=== PATIENT | female | born 1970 | race Two or more races ===

== ENCOUNTER 2016-03-24 17:59 | Inpatient (IN) | payer SELFPAY ==
[~2016-03-24] VITALS: Ht 157.5 cm; Wt 83.1 kg
--- NOTE | 2016-03-24 19:27 | PHYS DOC ---
Past Medical History Past Medical History: Diabetes-Type II, Hypertension Past Surgical History: Alcohol Use: Occasionally Drug Use: None Adult General Chief Complaint Chief Complaint: WEAKNESS/GENERALIZED HPI HPI Patient is a 45 year old female who presents with abdominal and flank pain. Patient reports last week she had right upper quadrant/epigastric pain that was accompanied by diarrhea. She saw her PCP, and was told it was likely her pancreas or gallbladder; she was to have an ultrasound done at some point this week. She presents to the emergency department now with right upper quadrant and bilateral flank pain. She also reports chills/fever and generalized weakness. She has not taken anything for symptoms. No clear inciting or mitigating factors. No other acute complaints. Review of Systems Review of Systems Constitutional: Generalized weakness. Fever/chills Eyes: Denies change in visual acuity or eye pain HENT: Denies nasal congestion or sore throat Respiratory: Denies cough or shortness of breath Cardiovascular: Denies chest pain GI: RUQ abdominal pain, nausea. Denies vomiting, bloody stools or diarrhea : Denies dysuria or hematuria Musculoskeletal: B/l flank pain Integument: Denies rash or skin lesions Neurologic: Denies headache, focal weakness or sensory changes Current Medications Current Medications Current Medications Medications (Trade) Dose Ordered Sig/Jorge Start Time Stop Time Status Last Admin Dose Admin Acetaminophen (Tylenol) 1,000 mg 1X ONCE 03/24/16 19:30 03/24/16 19:31 DC 03/24/16 19:36 1,000 MG Hydromorphone HCl (Dilaudid) 0.5 mg 1X ONCE 03/24/16 19:30 03/24/16 19:31 DC 03/24/16 19:36 0.5 MG Ondansetron HCl (Zofran) 4 mg 1X ONCE 03/24/16 19:30 03/24/16 19:31 DC 03/24/16 19:36 4 MG Sodium Chloride (Iv Sodium Chloride 0.9% 1000ml Bag) 1,000 ml @ 1,000 mls/hr 1X ONCE 03/24/16 19:30 03/24/16 20:29 DC 03/24/16 19:39 1,000 MLS/HR Allergies Allergies Allergies Coded Allergies Type Severity Reaction Last Updated Verified No Known Drug Allergies 03/24/16 No Physical Exam Physical Exam Constitutional: Well developed, well nourished, no acute distress, non-toxic appearance HENT: Normocephalic, atraumatic, bilateral external ears normal Eyes: EOMI, conjunctiva normal, no discharge Neck: Normal range of motion, no stridor Cardiovascular: Tachycardic, regular rhythm, no murmur Lungs & Thorax: Bilateral breath sounds clear to auscultation Abdomen: Bowel sounds normal, soft, non-distended, RUQ TTP Skin: Hot to touch, dry, no erythema, no rash Back: B/l CVA tenderness Extremities: No obvious deformity, no edema Neurologic: Alert and oriented X 3, no gross deficits noted Current Patient Data Vital Signs Vital Signs Date Time Temp Pulse Resp B/P Pulse Ox O2 Delivery O2 Flow Rate FiO2 03/24/16 19:05 100.1 123 18 122/65 95 Room Air 100.1 Lab Values Laboratory Tests Test 03/24/16 19:20 03/24/16 20:00 White Blood Count 9.4x10^3/uL (4.0-11.0) Red Blood Count 3.46x10^6/uL (3.50-5.40) L Hemoglobin 10.0g/dL (12.0-15.5) L Hematocrit 30.6% (36.0-47.0) L Mean Corpuscular Volume 89fL (79-100) Mean Corpuscular Hemoglobin 29pg (25-35) Mean Corpuscular Hemoglobin Concent 33g/dL (31-37) Red Cell Distribution Width 13.5% (11.5-14.5) Platelet Count 312x10^3/uL (140-400) Neutrophils (%) (Auto) 87% (31-73) H Lymphocytes (%) (Auto) 5% (24-48) L Monocytes (%) (Auto) 3% (0-9) Eosinophils (%) (Auto) 4% (0-3) H Basophils (%) (Auto) 1% (0-3) Neutrophils # (Auto) 8.2x10^3uL (1.8-7.7) H Lymphocytes # (Auto) 0.5x10^3/uL (1.0-4.8) L Monocytes # (Auto) 0.3x10^3/uL (0.0-1.1) Eosinophils # (Auto) 0.4x10^3/uL (0.0-0.7) Basophils # (Auto) 0.0x10^3/uL (0.0-0.2) Segmented Neutrophils % 60% (35-66) Band Neutrophils % 27% (0-9) H Lymphocytes % 8% (24-48) L Monocytes % 2% (0-10) Eosinophils % 3% (0-5) Toxic Granulation Slight Platelet Estimate Adequate (ADEQUATE) Sodium Level 133mmol/L (136-145) L Potassium Level 3.8mmol/L (3.5-5.1) Chloride Level 99mmol/L (98-107) Carbon Dioxide Level 26mmol/L (21-32) Anion Gap 8 (6-14) Blood Urea Nitrogen 18mg/dL (7-20) Creatinine 1.3mg/dL (0.6-1.0) H Estimated GFR (Cockcroft-Gault) 44.3 BUN/Creatinine Ratio 14 (6-20) Glucose Level 315mg/dL (70-99) H Lactic Acid Level 0.8mmol/L (0.4-2.0) Calcium Level 8.7mg/dL (8.5-10.1) Total Bilirubin 0.4mg/dL (0.2-1.0) Aspartate Amino Transferase (AST) 15U/L (15-37) Alanine Aminotransferase (ALT) 18U/L (14-59) Alkaline Phosphatase 97U/L (46-116) Total Protein 7.2g/dL (6.4-8.2) Albumin 2.6g/dL (3.4-5.0) L Albumin/Globulin Ratio 0.6 (1.0-1.7) L Lipase 247U/L (73-393) Urine Collection Type Unknown Urine Color Yellow Urine Clarity Cloudy Urine pH 5.5 Urine Specific [place] 1.020 Urine Protein 100mg/dL (NEG-TRACE) Urine Glucose (UA) >=1000mg/dL (NEG) Urine Ketones (Stick) Negativemg/dL (NEG) Urine Blood Moderate (NEG) Urine Nitrite Negative (NEG) Urine Bilirubin Negative (NEG) Urine Urobilinogen Dipstick 0.2mg/dL (0.2 mg/dL) Urine Leukocyte Esterase Small (NEG) Urine RBC 3-5/HPF (0-2) Urine WBC 11-20/HPF (0-4) Urine Squamous Epithelial Cells Few/LPF Urine Bacteria Many/HPF (0-FEW) Urine Test Negative (NEG) Laboratory Tests 03/24/16 19:20 Laboratory Tests 03/24/16 19:20 EKG EKG [] Radiology/Procedures Radiology/Procedures RUQ US: IMPRESSION Hepatomegaly with a hyperechoic 2.6 x 1.8 x 2.3 centimeter lesion in the superior pole of the right lobe of the liver possibly a hemangioma. This may be evaluated by multi phase contrast enhanced CT or MRI. Atrophic right kidney with a probable the right inferior pole cyst. Gallbladder is normal. Suboptimal evaluation due of the pancreas due to overlying bowel gas. Course & Med Decision Making Course & Med Decision Making Pertinent Labs and Imaging studies reviewed. (See chart for details) Patient is 45-year-old female who presents with right upper quadrant pain and bilateral flank pain. Suspect gallbladder as etiology. Will obtain labs, UA, right upper quadrant ultrasound. IV fluids, a medication, nausea medication ordered for relief of symptoms. Labs notable for anemia, slight hyponatremia. UA indicative of UTI. Dose of Rocephin ordered. Ultrasound results as above. Discussed results with patient and family. Given abnormal ultrasound results, I believe patient would benefit from additional imaging. However, her GFR is not high enough to give IV contrast for CT scan. As such, we will admit to the hospitalist service overnight and can obtain additional imaging in the morning. Spoke with Dr. Peace, who has agreed to accept patient for further evaluation and treatment. Dragon Disclaimer Dragon Disclaimer This electronic medical record was generated, in whole or in part, using a voice recognition dictation system. Departure Departure Impression: Primary Impression: Abdominal pain Additional Impressions: Liver lesion Atrophic kidney Disposition: ADMITTED INPATIENT Admitting Physician: Susan Peace Condition: STABLE Referrals: NO PCP (PCP) Problem Qualifiers LIZZIE THOMASON MD Mar 24, 2016 19:26
[2016-03-24] MEDS ORDERED: ACETAMINOPHEN 500 MG TABLET PO ONE (19:30)
[2016-03-24] MEDS ORDERED: HYDROMORPHONE 2 MG/ML VIAL. IV ONE (19:30)
[2016-03-24] MEDS ORDERED: ONDANSETRON PF 4 MG/2 ML VIAL. IV ONE (19:30)
[2016-03-24] MEDS ORDERED: IV NORMAL SALINE 1000ML BAG 1,000 ML IV ONE (19:30)
[2016-03-24 19:41] LABS: BASO % 1 % (0-3); EOS % 4 % (0-3); HEMATOCRIT 30.6 % (36.0-47.0); LYMPH # 0.5 x10^3/uL (1.0-4.8); LYMPH % 5 % (24-48); MEAN CORPUSCULAR HEMOGLOBIN 29 pg (25-35); MEAN CORPUSCULAR HGB CONC 33 g/dL (31-37); MEAN CORPUSCULAR VOLUME 89 fL (79-100); MONO % 3 % (0-9); NEUT % 87 % (31-73); PLATELET COUNT 312 x10^3/uL (140-400); RED BLOOD COUNT 3.46 x10^6/uL (3.50-5.40); RED CELL DISTRIBUTION WIDTH 13.5 % (11.5-14.5); WHITE BLOOD COUNT 9.4 x10^3/uL (4.0-11.0)
[2016-03-24 19:57] LABS: CALCIUM 8.7 mg/dL (8.5-10.1); CREATININE 1.3 mg/dL (0.6-1.0); GFR 44.3; POTASSIUM 3.8 mmol/L (3.5-5.1)
[2016-03-24 20:08] LABS: ALBUMIN 2.6 g/dL (3.4-5.0); ALBUMIN/GLOBULIN RATIO 0.6 (1.0-1.7); TOTAL BILIRUBIN 0.4 mg/dL (0.2-1.0); TOTAL PROTEIN 7.2 g/dL (6.4-8.2)
[2016-03-24 20:09] LABS: % EOS 3 % (0-5); PLT ESTIMATE ADEQUATE (ADEQUATE); TOXIC GRANULATION SLIGHT
[2016-03-24 20:15] LABS: BILIRUBIN,URINE NEGATIVE (NEG); GLUCOSE,URINE >=1000 mg/dL (NEG); NITRITE,URINE NEGATIVE (NEG); PH,URINE 5.5; UROBILINOGEN,URINE 0.2 mg/dL (0.2 mg/dL)
[2016-03-24 20:19] LABS: PROTEIN,URINE 100 mg/dL (NEG-TRACE)
[2016-03-24 20:20] LABS: BACTERIA,URINE MANY /HPF (0-FEW); NEG OBC UR NEG; POS OBC UR POS; SQUAMOUS EPITHELIAL CELL,UR FEW /LPF
--- NOTE | 2016-03-24 20:57 | RAD ---
PROCEDURE Limited right upper quadrant ultrasound. HISTORY Abdominal pain for 1 week, elevated lipase as per the patient. TECHNIQUE Real-time ren scale imaging of the right upper abdomen is performed and images are obtained. COMPARISON None available. FINDINGS The liver is enlarged and measures 20.3 centimeters in length. There is a 2.6 x 1.8 x 2.3 centimeter hyperechoic lesion in the superior right hepatic lobe. There is no intra or extrahepatic biliary ductal dilatation. Common bile duct measures 4.7 millimeter. The gallbladder appears normal. The right kidney IS SOMEWHAT ATROPHIC AND measures 7.9 x 3.4 x 3.6 centimeter . There is a 0.9 x 1.0 x 1.0 centimeter hypoechoic lesion in the inferior pole of the right kidney possibly a cyst. Pancreas is poorly evaluated due to overlying bowel gas. Limited evaluation of the IVC and aorta appear grossly normal. IMPRESSION Hepatomegaly with a hyperechoic 2.6 x 1.8 x 2.3 centimeter lesion in the superior pole of the right lobe of the liver possibly a hemangioma. This may be evaluated by multi phase contrast enhanced CT or MRI. Atrophic right kidney with a probable the right inferior pole cyst. Gallbladder is normal. Suboptimal evaluation due of the pancreas due to overlying bowel gas. Electronically signed by: Marce Austin MD (Mar 24, 2016 20:56:31)
[2016-03-24] MEDS ORDERED: ONDANSETRON PF 4 MG/2 ML VIAL. IV PRN (21:45)
[2016-03-24] MEDS ORDERED: CEFTRIAXONE 1GM IVPB FOR OMNI 50 ML IV ONE (21:45)
[2016-03-24 22:00] VITALS: BP 93/63
[2016-03-24] MEDS ORDERED: DEXTROSE 50% 25 GM / 50ML DISP.SYRIN. IV PRN (22:30)
[2016-03-24] MEDS ORDERED: CEFTRIAXONE SODIUM 1 GM in IV NORMAL SALINE 50ML 50 ML IV SCH (22:30)
[2016-03-24] MEDS ORDERED: INSULIN DETEMIR 300 UNITS/3 ML INSULN.PEN. SQ SCH (22:30)
--- NOTE | 2016-03-24 22:43 | PDOC1 ---
History and Physical Date of Admission Date of Admission DATE: 03/24/16 TIME: 22:37 Identification/Chief Complaint Chief Complaint abd pain Source Source: Chart review, Patient History of Present Illness History of Present Illness 45 yo female, DM2, poor control admit from ER for wornening mid abd pain. She did not complain of flank pain to me, she has prior kidney stones, and this feels different. Pain on palpations some fatigue and malaise and lowish fever, no sick contacts. no flu exposure Past Medical History Cardiovascular: No pertinent hx Hepatobiliary: No pertinent hx Renal/: Other (kidney stone) Endocrine: Diabetes Past Surgical History Past Surgical History: No pertinent history Family History Family History: No Significant Social History Smoke: No ALCOHOL: rare Drugs: None Current Problem List Problem List Problems Medical Problems: (1) Abdominal pain Status: Acute (2) Atrophic kidney Status: Acute (3) Flank pain Status: Acute (4) Liver lesion Status: Acute Problems: Current Medications Current Medications Current Medications Sodium Chloride (Iv Sodium Chloride 0.9% 1000ml Bag) 1,000 ml @ 1,000 mls/hr 1X ONCE IV Last administered on 03/24/16 19:39; Start 03/24/16 at 19:30; Stop 03/24/16 at 20:29; Status DC Ondansetron HCl (Zofran) 4 mg 1X ONCE IV Last administered on 03/24/16 19:36 ; Start 03/24/16 at 19:30; Stop 03/24/16 at 19:31; Status DC Hydromorphone HCl (Dilaudid) 0.5 mg 1X ONCE IV Last administered on 03/24/16 19:36; Start 03/24/16 at 19:30; Stop 03/24/16 at 19:31; Status DC Acetaminophen (Tylenol) 1,000 mg 1X ONCE PO Last administered on 03/24/16 19: 36; Start 03/24/16 at 19:30; Stop 03/24/16 at 19:31; Status DC Ondansetron HCl (Zofran) 4 mg PRN Q8HRS PRN IV NAUSEA/VOMITING; Start 03/24/16 at 21:45; Stop 03/25/16 at 21:44 Morphine Sulfate 4 mg 4 mg PRN Q2HR PRN IV PAIN; Start 03/24/16 at 21:45; Stop 03/25/16 at 21:44 Sodium Chloride (Iv Sodium Chloride 0.9% 1000ml Bag) 1,000 ml @ 100 mls/hr Q10H IV ; Start 03/24/16 at 21:45; Stop 03/25/16 at 21:44 Acetaminophen 650 mg 650 mg PRN Q4HRS PRN PO FEVER; Start 03/24/16 at 21:45; Stop 03/25/16 at 21:44 Ceftriaxone Sodium (Rocephin 1gm Ivpb For Omni) 50 ml @ 100 mls/hr 1X ONCE IV ; Start 03/24/16 at 21:45; Stop 03/24/16 at 22:14; Status DC Insulin Aspart (Novolog) 0-9 UNITS QIDACHS SQ ; Start 03/25/16 at 07:30; Status UNV Dextrose 12.5 gm 12.5 gm PRN Q15MIN PRN IV SEE COMMENTS; Start 03/24/16 at 22: 30; Status UNV Ceftriaxone Sodium/Sodium Chloride (Rocephin/Iv Sodium Chloride 0.9% 50ml) 50 ml @ 100 mls/hr Q24H IV ; Start 03/24/16 at 22:30; Status UNV Insulin Detemir (Levemir) 10 units QHS SQ ; Start 03/24/16 at 22:30; Status UNV Allergies Allergies: Coded Allergies: No Known Drug Allergies (Unverified , 03/24/16) ROS General: YES: Fatigue, Malaise, No: Appetite, Chills, Night Sweats, Other PSYCHOLOGICAL ROS: No: Anxiety, Behavioral Disorder, Concentration difficultie , Decreased libido, Depression, Disorientation, Hallucinations, Hostility, Irritablity, Memory difficulties, Mood Swings, Obsessive thoughts, Other, Physical abuse, Sexual abuse, Sleep disturbances, Suicidal ideation Eyes: No Blurry vision, No Decreased vision, No Double vision, No Dry eyes, No Excessive tearing, No Eye Pain, No Itchy Eyes, No Loss of vision, No Other, No Photophobia, No Scotomata, No Uses contacts, No Uses glasses HEENT: No: Epistaxis, Heacaches, Hearing change, Nasal congestion, Nasal discharge, Oral lesions, Other, Sinus pain, Sneezing, Snoring, Sore Throat, Tinnitus, Vertigo, Visual Changes, Vocal changes Respiratory: No: Cough, Hemoptysis, Orthopnea, Other, Pleuritic Pain, SOB with excertion, Shortness of breath, Sputum Changes, Stridor, Tachypnea, Wheezing Cardiovascular: No Chest Pain, No Edema, No Lt Headedness, No Orthopnea, No Other, No Palpitations, No Paroxysmal Noc. Dyspnea Gastrointestinal: Yes Abdominal Pain, Yes Nausea, No Constipation, No Diarrhea, No Hematochezia, No Melena, No Other, No Vomiting Genitourinary: No , No , No , No , No , No , No , No Discharge, No Dysuria, No Flank Pain, No Frequency, No Hematuria, No Incontinence, No Other, No Pain, No Retention, No Urgency Musculoskeletal: No Gait Disturbance, No Joint Pain, No Joint Stiffness, No Joint Swelling, No Muscle Pain, No Muscular Weakness, No Other, No Pain In:, No Swelling In: Neurological: No Behavorial Changes, No Bowel/Bladder ControlChng, No Confusion , No Dizziness, No Gait Disturbance, No Headaches, No Impaired Coord/balance, No Memory Loss, No Numbness/Tingling, No Other, No Seizures, No Speech Problems , No Tremors, No Visual Changes, No Weakness Skin: No Acne, No Dry Skin, No Eczema, No Hair Changes, No Lumps, No Mole Changes, No Mottling, No Nail Changes, No Other, No Pruritus, No Rash, No Skin Lesion Changes Physical Exam General: Alert, Oriented X3, Cooperative HEENT: Atraumatic, PERRLA Lungs: Clear to auscultation, Normal air movement Heart: no murmurs Abdomen: Soft (tender epigastrum, no rebound, some guarding), No masses Rectal Exam: not examined Extremities: No clubbing, No cyanosis Neuro: Normal speech, Normal tone, Sensation intact, Cranial nerves 3-12 NL Psych/Mental Status: Mental status NL, Mood NL Vitals Vitals Vital Signs Date Time Temp Pulse Resp B/P Pulse Ox O2 Delivery O2 Flow Rate FiO2 03/24/16 19:05 100.1 123 18 122/65 95 Room Air 100.1 Labs Labs Laboratory Tests Test 03/24/16 19:20 03/24/16 20:00 03/24/16 22:15 White Blood Count 9.4x10^3/uL (4.0-11.0) Red Blood Count 3.46x10^6/uL (3.50-5.40) Hemoglobin 10.0g/dL (12.0-15.5) Hematocrit 30.6% (36.0-47.0) Mean Corpuscular Volume 89fL (79-100) Mean Corpuscular Hemoglobin 29pg (25-35) Mean Corpuscular Hemoglobin Concent 33g/dL (31-37) Red Cell Distribution Width 13.5% (11.5-14.5) Platelet Count 312x10^3/uL (140-400) Neutrophils (%) (Auto) 87% (31-73) Lymphocytes (%) (Auto) 5% (24-48) Monocytes (%) (Auto) 3% (0-9) Eosinophils (%) (Auto) 4% (0-3) Basophils (%) (Auto) 1% (0-3) Neutrophils # (Auto) 8.2x10^3uL (1.8-7.7) Lymphocytes # (Auto) 0.5x10^3/uL (1.0-4.8) Monocytes # (Auto) 0.3x10^3/uL (0.0-1.1) Eosinophils # (Auto) 0.4x10^3/uL (0.0-0.7) Basophils # (Auto) 0.0x10^3/uL (0.0-0.2) Segmented Neutrophils % 60% (35-66) Band Neutrophils % 27% (0-9) Lymphocytes % 8% (24-48) Monocytes % 2% (0-10) Eosinophils % 3% (0-5) Toxic Granulation Slight Platelet Estimate Adequate (ADEQUATE) Sodium Level 133mmol/L (136-145) Potassium Level 3.8mmol/L (3.5-5.1) Chloride Level 99mmol/L (98-107) Carbon Dioxide Level 26mmol/L (21-32) Anion Gap 8 (6-14) Blood Urea Nitrogen 18mg/dL (7-20) Creatinine 1.3mg/dL (0.6-1.0) Estimated GFR (Cockcroft-Gault) 44.3 BUN/Creatinine Ratio 14 (6-20) Glucose Level 315mg/dL (70-99) Lactic Acid Level 0.8mmol/L (0.4-2.0) Calcium Level 8.7mg/dL (8.5-10.1) Total Bilirubin 0.4mg/dL (0.2-1.0) Aspartate Amino Transf (AST/SGOT) 15U/L (15-37) Alanine Aminotransferase (ALT/SGPT) 18U/L (14-59) Alkaline Phosphatase 97U/L (46-116) Total Protein 7.2g/dL (6.4-8.2) Albumin 2.6g/dL (3.4-5.0) Albumin/Globulin Ratio 0.6 (1.0-1.7) Lipase 247U/L (73-393) Urine Collection Type Unknown Urine Color Yellow Urine Clarity Cloudy Urine pH 5.5 Urine Specific [place] 1.020 Urine Protein 100mg/dL (NEG-TRACE) Urine Glucose (UA) >=1000mg/dL (NEG) Urine Ketones (Stick) Negativemg/dL (NEG) Urine Blood Moderate (NEG) Urine Nitrite Negative (NEG) Urine Bilirubin Negative (NEG) Urine Urobilinogen Dipstick 0.2mg/dL (0.2 mg/dL) Urine Leukocyte Esterase Small (NEG) Urine RBC 3-5/HPF (0-2) Urine WBC 11-20/HPF (0-4) Urine Squamous Epithelial Cells Few/LPF Urine Bacteria Many/HPF (0-FEW) Urine Test Negative (NEG) Glucose (Fingerstick) 340mg/dL (70-99) Laboratory Tests Test 03/24/16 19:20 03/24/16 20:00 03/24/16 22:15 White Blood Count 9.4x10^3/uL (4.0-11.0) Red Blood Count 3.46x10^6/uL (3.50-5.40) Hemoglobin 10.0g/dL (12.0-15.5) Hematocrit 30.6% (36.0-47.0) Mean Corpuscular Volume 89fL (79-100) Mean Corpuscular Hemoglobin 29pg (25-35) Mean Corpuscular Hemoglobin Concent 33g/dL (31-37) Red Cell Distribution Width 13.5% (11.5-14.5) Platelet Count 312x10^3/uL (140-400) Neutrophils (%) (Auto) 87% (31-73) Lymphocytes (%) (Auto) 5% (24-48) Monocytes (%) (Auto) 3% (0-9) Eosinophils (%) (Auto) 4% (0-3) Basophils (%) (Auto) 1% (0-3) Neutrophils # (Auto) 8.2x10^3uL (1.8-7.7) Lymphocytes # (Auto) 0.5x10^3/uL (1.0-4.8) Monocytes # (Auto) 0.3x10^3/uL (0.0-1.1) Eosinophils # (Auto) 0.4x10^3/uL (0.0-0.7) Basophils # (Auto) 0.0x10^3/uL (0.0-0.2) Segmented Neutrophils % 60% (35-66) Band Neutrophils % 27% (0-9) Lymphocytes % 8% (24-48) Monocytes % 2% (0-10) Eosinophils % 3% (0-5) Toxic Granulation Slight Platelet Estimate Adequate (ADEQUATE) Sodium Level 133mmol/L (136-145) Potassium Level 3.8mmol/L (3.5-5.1) Chloride Level 99mmol/L (98-107) Carbon Dioxide Level 26mmol/L (21-32) Anion Gap 8 (6-14) Blood Urea Nitrogen 18mg/dL (7-20) Creatinine 1.3mg/dL (0.6-1.0) Estimated GFR (Cockcroft-Gault) 44.3 BUN/Creatinine Ratio 14 (6-20) Glucose Level 315mg/dL (70-99) Lactic Acid Level 0.8mmol/L (0.4-2.0) Calcium Level 8.7mg/dL (8.5-10.1) Total Bilirubin 0.4mg/dL (0.2-1.0) Aspartate Amino Transf (AST/SGOT) 15U/L (15-37) Alanine Aminotransferase (ALT/SGPT) 18U/L (14-59) Alkaline Phosphatase 97U/L (46-116) Total Protein 7.2g/dL (6.4-8.2) Albumin 2.6g/dL (3.4-5.0) Albumin/Globulin Ratio 0.6 (1.0-1.7) Lipase 247U/L (73-393) Urine Collection Type Unknown Urine Color Yellow Urine Clarity Cloudy Urine pH 5.5 Urine Specific [place] 1.020 Urine Protein 100mg/dL (NEG-TRACE) Urine Glucose (UA) >=1000mg/dL (NEG) Urine Ketones (Stick) Negativemg/dL (NEG) Urine Blood Moderate (NEG) Urine Nitrite Negative (NEG) Urine Bilirubin Negative (NEG) Urine Urobilinogen Dipstick 0.2mg/dL (0.2 mg/dL) Urine Leukocyte Esterase Small (NEG) Urine RBC 3-5/HPF (0-2) Urine WBC 11-20/HPF (0-4) Urine Squamous Epithelial Cells Few/LPF Urine Bacteria Many/HPF (0-FEW) Urine Test Negative (NEG) Glucose (Fingerstick) 340mg/dL (70-99) VTE Prophylaxis Ordered VTE Prophylaxis Devices: Yes VTE Pharmacological Prophylaxi: No Assessment/Plan Assessment/Plan ACute epigastric abd pain PO pepcid BID, GI cocktail X1, tums US abd neg for GBD, check lipase in AM DM2, poor control, Last A1c > 12% moderate malnutrition, low serum alb tachycardia, SIRS, no infectious known CKD 2-3, hydrate and eval GUMARO RODRIGUEZ MD Mar 24, 2016 22:43
[2016-03-24] MEDS ORDERED: CALCIUM CARBONATE 500 MG TAB.CHEW PO PRN (22:45)
[2016-03-24] MEDS ORDERED: LIDO:MAALOX:DONNATAL 1:1:1 15 ML SINGLE DOSE SWSW ONE (22:45)
[2016-03-24] MEDS ORDERED: DOCUSATE SODIUM 100 MG CAPSULE PO PRN (22:45)
[2016-03-24] MEDS: IV NORMAL SALINE 1000ML BAG 1,000 ML IV SCH (22:53)
[2016-03-24] MEDS: FAMOTIDINE 20 MG TABLET. PO SCH (22:54)
[2016-03-24] MEDS: MORPHINE SULFATE 4 MG/ML DISP.SYRIN. IV PRN (22:55)
[2016-03-24 23:00] VITALS: BP 94/60
[2016-03-24] MEDS ORDERED: CEFTRIAXONE SODIUM 1 GM in IV NORMAL SALINE 50ML 50 ML IV ONE (23:00)
[2016-03-24] MEDS ORDERED: [UNRECOGNIZED DRUG - REMARK] PO (23:34)
[2016-03-24] MEDS ORDERED: Lisinopril PO (23:34)
[2016-03-25] VITALS (15 sets, daily range): BP systolic 87–150; BP diastolic 44–81
[2016-03-25] MEDS: MORPHINE SULFATE 4 MG/ML DISP.SYRIN. IV PRN (05:43)
[2016-03-25] MEDS ORDERED: ACETAMINOPHEN 325 MG TABLET. PO ONE (06:30)
[2016-03-25] MEDS ORDERED: ACETAMINOPHEN 325 MG TABLET. PO PRN (06:30)
[2016-03-25] MEDS ORDERED: ALBUTEROL SULFATE 2.5 MG/3 ML NEBU. NEB PRN (06:30)
[2016-03-25 06:42] LABS: BASO # 0.1 x10^3/uL (0.0-0.2); BASO % 1 % (0-3); EOS % 6 % (0-3); HEMATOCRIT 31.8 % (36.0-47.0); HEMOGLOBIN 10.6 g/dL (12.0-15.5); LYMPH # 0.6 x10^3/uL (1.0-4.8); LYMPH % 10 % (24-48); MEAN CORPUSCULAR HEMOGLOBIN 29 pg (25-35); MEAN CORPUSCULAR HGB CONC 34 g/dL (31-37); MEAN CORPUSCULAR VOLUME 88 fL (79-100); MONO % 1 % (0-9); NEUT % 83 % (31-73); PLATELET COUNT 310 x10^3/uL (140-400); RED BLOOD COUNT 3.64 x10^6/uL (3.50-5.40); RED CELL DISTRIBUTION WIDTH 13.7 % (11.5-14.5); WHITE BLOOD COUNT 5.6 x10^3/uL (4.0-11.0)
[2016-03-25] MEDS: BUDESONIDE 0.5 MG/2 ML NEBU NEB SCH ×2 (06:53→19:56)
[2016-03-25 06:54] LABS: ALBUMIN 2.4 g/dL (3.4-5.0); ALBUMIN/GLOBULIN RATIO 0.5 (1.0-1.7); CALCIUM 8.1 mg/dL (8.5-10.1); CREATININE 1.7 mg/dL (0.6-1.0); GFR 32.5; POTASSIUM 4.1 mmol/L (3.5-5.1); TOTAL BILIRUBIN 0.4 mg/dL (0.2-1.0); TOTAL PROTEIN 7.2 g/dL (6.4-8.2)
--- NOTE | 2016-03-25 07:29 | RAD ---
EXAM: Abdomen, single view. HISTORY: Nephrolithiasis. COMPARISON: None. FINDINGS: A frontal view of the abdomen is obtained. There is moderate gas and stool within the colon, limiting evaluation for nephroureterolithiasis. No definite stone is seen. There is no bowel obstruction. IMPRESSION: 1. No convincing evidence of nephroureterolithiasis. 2. Nonobstructive bowel gas pattern.
--- NOTE | 2016-03-25 07:38 | EKG ---
[facility] [address] [place] [address] Test Date: 2016-03-25 Test Time: 07:24:19 Pat Name: TREVON DELVALLE Department: Room: 569 1 Gender: F Panel Instrument Repairer: EVELIA : 1970 Requested By: GUMARO RODRIGUEZ Order Number: [id number] Reading MD: Luiz Estrada Measurements Intervals [place] Rate: 136 P: 54 [place]: 114 QRS: -23 QRSD: 88 T: 28 QT: 288 QTc: 436 Interpretive Statements SINUS TACHYCARDIA LEFTWARD AXIS S1,S2,S3 PATTERN NONSPECIFIC ST-T WAVE CHANGES. ABNORMAL ECG RI6.01 No previous ECG available for comparison Electronically Signed On 03-26-2016 8:29:19 FILM COLOR TESTER by Luiz Estrada
--- NOTE | 2016-03-25 07:47 | RAD ---
EXAM: Chest, single view. HISTORY: Decreased oxygen saturation. COMPARISON: None. FINDINGS: A frontal view of the chest is obtained. There is diffuse interstitial infiltrate. There is no consolidation, effusion or pneumothorax. The heart is normal in size. IMPRESSION: Diffuse bilateral interstitial infiltrate.
[2016-03-25] MEDS ORDERED: FUROSEMIDE 20 MG/2 ML VIAL IVP ONE (08:15)
--- NOTE | 2016-03-25 08:24 | RAD ---
EXAM: Chest CT without intravenous contrast. HISTORY: Shortness of breath. TECHNIQUE: Computed tomographic images of the chest were obtained without contrast. Multiplanar reformatting was performed. COMPARISON: Chest radiograph obtained on the same date. FINDINGS: There is groundglass and nodular infiltrate throughout the right greater than left lower lobes and a portion of the right middle and bilateral upper lobes. There is no significant effusion. There is no pneumothorax. The heart is normal in size. There is right hilar lymphadenopathy, likely reactive in etiology. There is no suspicious osseous lesion. The upper abdomen is unremarkable. IMPRESSION: 1. Right greater than left lower lobe predominant multifocal pneumonia. Follow-up to confirm resolution. 2. Right greater than left hilar lymphadenopathy, likely reactive given the forementioned finding. Follow-up to confirm resolution. PQRS Compliance Statement: One or more of the following individualized dose reduction techniques were utilized for this examination: 1. Automated exposure control 2. Adjustment of the mA and/or kV according to patient size 3. Use of iterative reconstruction technique
[2016-03-25] MEDS: FAMOTIDINE 20 MG TABLET. PO SCH ×2 (08:44→20:31)
[2016-03-25] MEDS: DOCUSATE SODIUM 100 MG CAPSULE PO SCH (08:44)
[2016-03-25] MEDS: IV NORMAL SALINE 1000ML BAG 1,000 ML IV SCH ×4 (08:46→20:31)
--- NOTE | 2016-03-25 08:56 | PDOC ---
Provider Note Provider Note dictated sepsis/ aspiration pneumonia RF due to above SHARRI LANG MD Mar 25, 2016 08:56
[2016-03-25] MEDS ORDERED: INFLUENZA VAX SCREEN BY RX. MC ONE (09:00)
[2016-03-25] MEDS ORDERED: PNEUMOCOCCAL VAX SCREEN BY RX. MC ONE (09:00)
[2016-03-25] MEDS ORDERED: PNEUMOC CONJ VACC 23-VALENT 0.5 ML VIAL. VAX IM ONE (09:00)
[2016-03-25] MEDS ORDERED: PIP/TAZO PER PHARMACY MC PRN (09:00)
[2016-03-25] MEDS ORDERED: FLU VACC QUAD 2016-17 (36MOS+)/PF 0.5 ML SYRINGE. VAX IM ONE (09:00)
[2016-03-25] MEDS ORDERED: IV NORMAL SALINE 1000ML BAG 1,000 ML IV ONE (09:15)
[2016-03-25] MEDS: PIPERACILLIN/TAZOBACTAM 2.25 GM in IV NORMAL SALINE 50ML 50 ML IV SCH ×3 (09:18→23:54)
[2016-03-25] MEDS ORDERED: VANCOMYCIN 1.75 GM in IV NORMAL SALINE 500ML BAG 500 ML IV ONE (09:30)
[2016-03-25] MEDS: ACETAMINOPHEN 325 MG TABLET. PO PRN ×2 (09:47→17:10)
[2016-03-25] MEDS: INSULIN ASPART 300 UNITS/3 ML INSULN.PEN SQ SCH ×4 (09:48→20:36)
--- NOTE | 2016-03-25 09:49 | PDOC ---
PROGRESS NOTES Chief Complaint Chief Complaint CC: ABDOMINAL PAIN A/P SEPSIS POA, PNEUMONIA UTI HYPERGLYCEMIA UNCONTROLLED RUQ PAIN, DIDI PLAN ICU ADMIT IV ZOSYN AND VANCOMYCIN RENAL DOS ING VANCOMYCIN RENAL CONSULT SSI WITH 20 LEVEMIR PULMONOLOGY FOLLOWING FOLLOW CX IV HYDRATION RENAL US PAIN CONTROL LABS REVIEWED, DVT PROPHYLAXIS History of Present Illness History of Present Illness ABDOMINAL PAIN NO FEVER 5/10 PAIN GETTING WORSE WITH FOOD Vitals Vitals Vital Signs Date Time Temp Pulse Resp B/P Pulse Ox O2 Delivery O2 Flow Rate FiO2 03/25/16 09:00 108 20 122/62 96 NonRebreather Mask 03/25/16 08:20 102.5 102.5 Physical Exam General: Alert, Oriented X3, Cooperative Heart: Normal S1, Normal S2 Lungs: Clear, Other Abdomen: Soft (tender epigastrum, no rebound, some guarding), No masses Extremities: No clubbing, No cyanosis Labs LABS Laboratory Tests Test 03/24/16 19:20 03/24/16 20:00 03/24/16 22:15 03/25/16 05:35 White Blood Count 9.4x10^3/uL (4.0-11.0) Red Blood Count 3.46x10^6/uL (3.50-5.40) Hemoglobin 10.0g/dL (12.0-15.5) Hematocrit 30.6% (36.0-47.0) Mean Corpuscular Volume 89fL (79-100) Mean Corpuscular Hemoglobin 29pg (25-35) Mean Corpuscular Hemoglobin Concent 33g/dL (31-37) Red Cell Distribution Width 13.5% (11.5-14.5) Platelet Count 312x10^3/uL (140-400) Neutrophils (%) (Auto) 87% (31-73) Lymphocytes (%) (Auto) 5% (24-48) Monocytes (%) (Auto) 3% (0-9) Eosinophils (%) (Auto) 4% (0-3) Basophils (%) (Auto) 1% (0-3) Neutrophils # (Auto) 8.2x10^3uL (1.8-7.7) Lymphocytes # (Auto) 0.5x10^3/uL (1.0-4.8) Monocytes # (Auto) 0.3x10^3/uL (0.0-1.1) Eosinophils # (Auto) 0.4x10^3/uL (0.0-0.7) Basophils # (Auto) 0.0x10^3/uL (0.0-0.2) Segmented Neutrophils % 60% (35-66) Band Neutrophils % 27% (0-9) Lymphocytes % 8% (24-48) Monocytes % 2% (0-10) Eosinophils % 3% (0-5) Toxic Granulation Slight Platelet Estimate Adequate (ADEQUATE) Sodium Level 133mmol/L (136-145) Potassium Level 3.8mmol/L (3.5-5.1) Chloride Level 99mmol/L (98-107) Carbon Dioxide Level 26mmol/L (21-32) Anion Gap 8 (6-14) Blood Urea Nitrogen 18mg/dL (7-20) Creatinine 1.3mg/dL (0.6-1.0) Estimated GFR (Cockcroft-Gault) 44.3 BUN/Creatinine Ratio 14 (6-20) Glucose Level 315mg/dL (70-99) Lactic Acid Level 0.8mmol/L (0.4-2.0) Calcium Level 8.7mg/dL (8.5-10.1) Total Bilirubin 0.4mg/dL (0.2-1.0) Aspartate Amino Transf (AST/SGOT) 15U/L (15-37) Alanine Aminotransferase (ALT/SGPT) 18U/L (14-59) Alkaline Phosphatase 97U/L (46-116) Total Protein 7.2g/dL (6.4-8.2) Albumin 2.6g/dL (3.4-5.0) Albumin/Globulin Ratio 0.6 (1.0-1.7) Lipase 247U/L (73-393) Urine Collection Type Unknown Urine Color Yellow Urine Clarity Cloudy Urine pH 5.5 Urine Specific [place] 1.020 Urine Protein 100mg/dL (NEG-TRACE) Urine Glucose (UA) >=1000mg/dL (NEG) Urine Ketones (Stick) Negativemg/dL (NEG) Urine Blood Moderate (NEG) Urine Nitrite Negative (NEG) Urine Bilirubin Negative (NEG) Urine Urobilinogen Dipstick 0.2mg/dL (0.2 mg/dL) Urine Leukocyte Esterase Small (NEG) Urine RBC 3-5/HPF (0-2) Urine WBC 11-20/HPF (0-4) Urine Squamous Epithelial Cells Few/LPF Urine Bacteria Many/HPF (0-FEW) Urine Test Negative (NEG) Glucose (Fingerstick) 340mg/dL (70-99) 211mg/dL (70-99) Test 03/25/16 06:35 03/25/16 06:55 White Blood Count 5.6x10^3/uL (4.0-11.0) Red Blood Count 3.64x10^6/uL (3.50-5.40) Hemoglobin 10.6g/dL (12.0-15.5) Hematocrit 31.8% (36.0-47.0) Mean Corpuscular Volume 88fL (79-100) Mean Corpuscular Hemoglobin 29pg (25-35) Mean Corpuscular Hemoglobin Concent 34g/dL (31-37) Red Cell Distribution Width 13.7% (11.5-14.5) Platelet Count 310x10^3/uL (140-400) Neutrophils (%) (Auto) 83% (31-73) Lymphocytes (%) (Auto) 10% (24-48) Monocytes (%) (Auto) 1% (0-9) Eosinophils (%) (Auto) 6% (0-3) Basophils (%) (Auto) 1% (0-3) Neutrophils # (Auto) 4.6x10^3uL (1.8-7.7) Lymphocytes # (Auto) 0.6x10^3/uL (1.0-4.8) Monocytes # (Auto) 0.0x10^3/uL (0.0-1.1) Eosinophils # (Auto) 0.3x10^3/uL (0.0-0.7) Basophils # (Auto) 0.1x10^3/uL (0.0-0.2) Sodium Level 138mmol/L (136-145) Potassium Level 4.1mmol/L (3.5-5.1) Chloride Level 102mmol/L (98-107) Carbon Dioxide Level 23mmol/L (21-32) Anion Gap 13 (6-14) Blood Urea Nitrogen 22mg/dL (7-20) Creatinine 1.7mg/dL (0.6-1.0) Estimated GFR (Cockcroft-Gault) 32.5 BUN/Creatinine Ratio 13 (6-20) Glucose Level 263mg/dL (70-99) Calcium Level 8.1mg/dL (8.5-10.1) Total Bilirubin 0.4mg/dL (0.2-1.0) Aspartate Amino Transf (AST/SGOT) 20U/L (15-37) Alanine Aminotransferase (ALT/SGPT) 19U/L (14-59) Alkaline Phosphatase 89U/L (46-116) Total Protein 7.2g/dL (6.4-8.2) Albumin 2.4g/dL (3.4-5.0) Albumin/Globulin Ratio 0.5 (1.0-1.7) Lactic Acid Level 2.2mmol/L (0.4-2.0) Assessment and Plan Assessmemt and Plan Problems Medical Problems: (1) Abdominal pain Status: Acute (2) Atrophic kidney Status: Acute (3) Flank pain Status: Acute (4) Liver lesion Status: Acute Problems: Comment Review of Relevant I have reviewed the following items minnie (where applicable) has been applied. Labs Laboratory Tests Test 03/24/16 19:20 03/24/16 20:00 03/24/16 22:15 03/25/16 05:35 White Blood Count 9.4x10^3/uL (4.0-11.0) Red Blood Count 3.46x10^6/uL (3.50-5.40) Hemoglobin 10.0g/dL (12.0-15.5) Hematocrit 30.6% (36.0-47.0) Mean Corpuscular Volume 89fL (79-100) Mean Corpuscular Hemoglobin 29pg (25-35) Mean Corpuscular Hemoglobin Concent 33g/dL (31-37) Red Cell Distribution Width 13.5% (11.5-14.5) Platelet Count 312x10^3/uL (140-400) Neutrophils (%) (Auto) 87% (31-73) Lymphocytes (%) (Auto) 5% (24-48) Monocytes (%) (Auto) 3% (0-9) Eosinophils (%) (Auto) 4% (0-3) Basophils (%) (Auto) 1% (0-3) Neutrophils # (Auto) 8.2x10^3uL (1.8-7.7) Lymphocytes # (Auto) 0.5x10^3/uL (1.0-4.8) Monocytes # (Auto) 0.3x10^3/uL (0.0-1.1) Eosinophils # (Auto) 0.4x10^3/uL (0.0-0.7) Basophils # (Auto) 0.0x10^3/uL (0.0-0.2) Segmented Neutrophils % 60% (35-66) Band Neutrophils % 27% (0-9) Lymphocytes % 8% (24-48) Monocytes % 2% (0-10) Eosinophils % 3% (0-5) Toxic Granulation Slight Platelet Estimate Adequate (ADEQUATE) Sodium Level 133mmol/L (136-145) Potassium Level 3.8mmol/L (3.5-5.1) Chloride Level 99mmol/L (98-107) Carbon Dioxide Level 26mmol/L (21-32) Anion Gap 8 (6-14) Blood Urea Nitrogen 18mg/dL (7-20) Creatinine 1.3mg/dL (0.6-1.0) Estimated GFR (Cockcroft-Gault) 44.3 BUN/Creatinine Ratio 14 (6-20) Glucose Level 315mg/dL (70-99) Lactic Acid Level 0.8mmol/L (0.4-2.0) Calcium Level 8.7mg/dL (8.5-10.1) Total Bilirubin 0.4mg/dL (0.2-1.0) Aspartate Amino Transf (AST/SGOT) 15U/L (15-37) Alanine Aminotransferase (ALT/SGPT) 18U/L (14-59) Alkaline Phosphatase 97U/L (46-116) Total Protein 7.2g/dL (6.4-8.2) Albumin 2.6g/dL (3.4-5.0) Albumin/Globulin Ratio 0.6 (1.0-1.7) Lipase 247U/L (73-393) Urine Collection Type Unknown Urine Color Yellow Urine Clarity Cloudy Urine pH 5.5 Urine Specific [place] 1.020 Urine Protein 100mg/dL (NEG-TRACE) Urine Glucose (UA) >=1000mg/dL (NEG) Urine Ketones (Stick) Negativemg/dL (NEG) Urine Blood Moderate (NEG) Urine Nitrite Negative (NEG) Urine Bilirubin Negative (NEG) Urine Urobilinogen Dipstick 0.2mg/dL (0.2 mg/dL) Urine Leukocyte Esterase Small (NEG) Urine RBC 3-5/HPF (0-2) Urine WBC 11-20/HPF (0-4) Urine Squamous Epithelial Cells Few/LPF Urine Bacteria Many/HPF (0-FEW) Urine Test Negative (NEG) Glucose (Fingerstick) 340mg/dL (70-99) 211mg/dL (70-99) Test 03/25/16 06:35 03/25/16 06:55 White Blood Count 5.6x10^3/uL (4.0-11.0) Red Blood Count 3.64x10^6/uL (3.50-5.40) Hemoglobin 10.6g/dL (12.0-15.5) Hematocrit 31.8% (36.0-47.0) Mean Corpuscular Volume 88fL (79-100) Mean Corpuscular Hemoglobin 29pg (25-35) Mean Corpuscular Hemoglobin Concent 34g/dL (31-37) Red Cell Distribution Width 13.7% (11.5-14.5) Platelet Count 310x10^3/uL (140-400) Neutrophils (%) (Auto) 83% (31-73) Lymphocytes (%) (Auto) 10% (24-48) Monocytes (%) (Auto) 1% (0-9) Eosinophils (%) (Auto) 6% (0-3) Basophils (%) (Auto) 1% (0-3) Neutrophils # (Auto) 4.6x10^3uL (1.8-7.7) Lymphocytes # (Auto) 0.6x10^3/uL (1.0-4.8) Monocytes # (Auto) 0.0x10^3/uL (0.0-1.1) Eosinophils # (Auto) 0.3x10^3/uL (0.0-0.7) Basophils # (Auto) 0.1x10^3/uL (0.0-0.2) Sodium Level 138mmol/L (136-145) Potassium Level 4.1mmol/L (3.5-5.1) Chloride Level 102mmol/L (98-107) Carbon Dioxide Level 23mmol/L (21-32) Anion Gap 13 (6-14) Blood Urea Nitrogen 22mg/dL (7-20) Creatinine 1.7mg/dL (0.6-1.0) Estimated GFR (Cockcroft-Gault) 32.5 BUN/Creatinine Ratio 13 (6-20) Glucose Level 263mg/dL (70-99) Calcium Level 8.1mg/dL (8.5-10.1) Total Bilirubin 0.4mg/dL (0.2-1.0) Aspartate Amino Transf (AST/SGOT) 20U/L (15-37) Alanine Aminotransferase (ALT/SGPT) 19U/L (14-59) Alkaline Phosphatase 89U/L (46-116) Total Protein 7.2g/dL (6.4-8.2) Albumin 2.4g/dL (3.4-5.0) Albumin/Globulin Ratio 0.5 (1.0-1.7) Lactic Acid Level 2.2mmol/L (0.4-2.0) Laboratory Tests Test 03/24/16 19:20 03/24/16 20:00 03/24/16 22:15 03/25/16 05:35 White Blood Count 9.4x10^3/uL (4.0-11.0) Red Blood Count 3.46x10^6/uL (3.50-5.40) Hemoglobin 10.0g/dL (12.0-15.5) Hematocrit 30.6% (36.0-47.0) Mean Corpuscular Volume 89fL (79-100) Mean Corpuscular Hemoglobin 29pg (25-35) Mean Corpuscular Hemoglobin Concent 33g/dL (31-37) Red Cell Distribution Width 13.5% (11.5-14.5) Platelet Count 312x10^3/uL (140-400) Neutrophils (%) (Auto) 87% (31-73) Lymphocytes (%) (Auto) 5% (24-48) Monocytes (%) (Auto) 3% (0-9) Eosinophils (%) (Auto) 4% (0-3) Basophils (%) (Auto) 1% (0-3) Neutrophils # (Auto) 8.2x10^3uL (1.8-7.7) Lymphocytes # (Auto) 0.5x10^3/uL (1.0-4.8) Monocytes # (Auto) 0.3x10^3/uL (0.0-1.1) Eosinophils # (Auto) 0.4x10^3/uL (0.0-0.7) Basophils # (Auto) 0.0x10^3/uL (0.0-0.2) Segmented Neutrophils % 60% (35-66) Band Neutrophils % 27% (0-9) Lymphocytes % 8% (24-48) Monocytes % 2% (0-10) Eosinophils % 3% (0-5) Toxic Granulation Slight Platelet Estimate Adequate (ADEQUATE) Sodium Level 133mmol/L (136-145) Potassium Level 3.8mmol/L (3.5-5.1) Chloride Level 99mmol/L (98-107) Carbon Dioxide Level 26mmol/L (21-32) Anion Gap 8 (6-14) Blood Urea Nitrogen 18mg/dL (7-20) Creatinine 1.3mg/dL (0.6-1.0) Estimated GFR (Cockcroft-Gault) 44.3 BUN/Creatinine Ratio 14 (6-20) Glucose Level 315mg/dL (70-99) Lactic Acid Level 0.8mmol/L (0.4-2.0) Calcium Level 8.7mg/dL (8.5-10.1) Total Bilirubin 0.4mg/dL (0.2-1.0) Aspartate Amino Transf (AST/SGOT) 15U/L (15-37) Alanine Aminotransferase (ALT/SGPT) 18U/L (14-59) Alkaline Phosphatase 97U/L (46-116) Total Protein 7.2g/dL (6.4-8.2) Albumin 2.6g/dL (3.4-5.0) Albumin/Globulin Ratio 0.6 (1.0-1.7) Lipase 247U/L (73-393) Urine Collection Type Unknown Urine Color Yellow Urine Clarity Cloudy Urine pH 5.5 Urine Specific [place] 1.020 Urine Protein 100mg/dL (NEG-TRACE) Urine Glucose (UA) >=1000mg/dL (NEG) Urine Ketones (Stick) Negativemg/dL (NEG) Urine Blood Moderate (NEG) Urine Nitrite Negative (NEG) Urine Bilirubin Negative (NEG) Urine Urobilinogen Dipstick 0.2mg/dL (0.2 mg/dL) Urine Leukocyte Esterase Small (NEG) Urine RBC 3-5/HPF (0-2) Urine WBC 11-20/HPF (0-4) Urine Squamous Epithelial Cells Few/LPF Urine Bacteria Many/HPF (0-FEW) Urine Test Negative (NEG) Glucose (Fingerstick) 340mg/dL (70-99) 211mg/dL (70-99) Test 03/25/16 06:35 03/25/16 06:55 White Blood Count 5.6x10^3/uL (4.0-11.0) Red Blood Count 3.64x10^6/uL (3.50-5.40) Hemoglobin 10.6g/dL (12.0-15.5) Hematocrit 31.8% (36.0-47.0) Mean Corpuscular Volume 88fL (79-100) Mean Corpuscular Hemoglobin 29pg (25-35) Mean Corpuscular Hemoglobin Concent 34g/dL (31-37) Red Cell Distribution Width 13.7% (11.5-14.5) Platelet Count 310x10^3/uL (140-400) Neutrophils (%) (Auto) 83% (31-73) Lymphocytes (%) (Auto) 10% (24-48) Monocytes (%) (Auto) 1% (0-9) Eosinophils (%) (Auto) 6% (0-3) Basophils (%) (Auto) 1% (0-3) Neutrophils # (Auto) 4.6x10^3uL (1.8-7.7) Lymphocytes # (Auto) 0.6x10^3/uL (1.0-4.8) Monocytes # (Auto) 0.0x10^3/uL (0.0-1.1) Eosinophils # (Auto) 0.3x10^3/uL (0.0-0.7) Basophils # (Auto) 0.1x10^3/uL (0.0-0.2) Sodium Level 138mmol/L (136-145) Potassium Level 4.1mmol/L (3.5-5.1) Chloride Level 102mmol/L (98-107) Carbon Dioxide Level 23mmol/L (21-32) Anion Gap 13 (6-14) Blood Urea Nitrogen 22mg/dL (7-20) Creatinine 1.7mg/dL (0.6-1.0) Estimated GFR (Cockcroft-Gault) 32.5 BUN/Creatinine Ratio 13 (6-20) Glucose Level 263mg/dL (70-99) Calcium Level 8.1mg/dL (8.5-10.1) Total Bilirubin 0.4mg/dL (0.2-1.0) Aspartate Amino Transf (AST/SGOT) 20U/L (15-37) Alanine Aminotransferase (ALT/SGPT) 19U/L (14-59) Alkaline Phosphatase 89U/L (46-116) Total Protein 7.2g/dL (6.4-8.2) Albumin 2.4g/dL (3.4-5.0) Albumin/Globulin Ratio 0.5 (1.0-1.7) Lactic Acid Level 2.2mmol/L (0.4-2.0) Medications Current Medications Sodium Chloride (Iv Sodium Chloride 0.9% 1000ml Bag) 1,000 ml @ 1,000 mls/hr 1X ONCE IV Last administered on 03/24/16 19:39; Start 03/24/16 at 19:30; Stop 03/24/16 at 20:29; Status DC Ondansetron HCl (Zofran) 4 mg 1X ONCE IV Last administered on 03/24/16 19:36 ; Start 03/24/16 at 19:30; Stop 03/24/16 at 19:31; Status DC Hydromorphone HCl (Dilaudid) 0.5 mg 1X ONCE IV Last administered on 03/24/16 19:36; Start 03/24/16 at 19:30; Stop 03/24/16 at 19:31; Status DC Acetaminophen (Tylenol) 1,000 mg 1X ONCE PO Last administered on 03/24/16 19: 36; Start 03/24/16 at 19:30; Stop 03/24/16 at 19:31; Status DC Ondansetron HCl (Zofran) 4 mg PRN Q8HRS PRN IV NAUSEA/VOMITING Last administered on 03/25/16 05:37; Start 03/24/16 at 21:45; Stop 03/25/16 at 21:44 Morphine Sulfate 4 mg 4 mg PRN Q2HR PRN IV PAIN Last administered on 03/25/16 05:43; Start 03/24/16 at 21:45; Stop 03/25/16 at 08:59; Status DC Sodium Chloride (Iv Sodium Chloride 0.9% 1000ml Bag) 1,000 ml @ 100 mls/hr Q10H IV Last administered on 03/25/16 08:46; Start 03/24/16 at 21:45; Stop 02/27 at 21:44 Acetaminophen 650 mg 650 mg PRN Q4HRS PRN PO FEVER Last administered on 09:47; Start 03/24/16 at 21:45; Stop 03/25/16 at 21:44 Ceftriaxone Sodium (Rocephin 1gm Ivpb For Omni) 50 ml @ 100 mls/hr 1X ONCE IV ; Start 03/24/16 at 21:45; Stop 03/25/16 at 08:59; Status DC Insulin Aspart (Novolog) 0-9 UNITS QIDACHS SQ Last administered on 03/25/16 09 :48; Start 03/25/16 at 07:30 Dextrose 12.5 gm 12.5 gm PRN Q15MIN PRN IV SEE COMMENTS; Start 03/24/16 at 22: 30 Ceftriaxone Sodium/Sodium Chloride (Rocephin/Iv Sodium Chloride 0.9% 50ml) 50 ml @ 100 mls/hr Q24H IV Last administered on 03/24/16 22:53; Start 03/24/16 at 22:30; Stop 03/25/16 at 08:59; Status DC Insulin Detemir (Levemir) 10 units QHS SQ Last administered on 03/24/16 23:07 ; Start 03/24/16 at 22:30 Famotidine (Pepcid) 20 mg BID PO Last administered on 03/25/16 08:44; Start at 22:45 Calcium Carbonate/ Glycine (Tums) 500 mg PRN AFTMEALHC PRN PO INDIGESTION; Start 03/24/16 at 22:45 Multi-Ingredient Mouthwash/Gargle (Gi Cocktail Single Dose) 15 ml 1X ONCE SWSW Last administered on 03/24/16 22:54; Start 03/24/16 at 22:45; Stop 03/24/16 at 22:46; Status DC Oxycodone/ Acetaminophen (Percocet 5/325) 1 tab PRN Q4HRS PRN PO PAIN; Start at 22:45 Docusate Sodium (Colace) 100 mg PRN DAILY PRN PO CONSTIPATION; Start 03/24/16 at 22:45 Docusate Sodium 100 mg 100 mg DAILY PO Last administered on 03/25/16 08:44; Start 03/25/16 at 09:00 Ceftriaxone Sodium/Sodium Chloride (Rocephin/Iv Sodium Chloride 0.9% 50ml) 50 ml @ 100 mls/hr ONCE ONCE IV ; Start 03/24/16 at 23:00; Stop 03/24/16 at 23:29 ; Status Cancel Info (Do NOT chart on this placeholder) 1 each 1X ONCE MC ; Start 03/25/16 at 09:00; Stop 03/25/16 at 09:01; Status UNV Pneumococcal Polyvalent Vaccine (Do NOT chart on this placeholder) 1 each 1X ONCE MC ; Start 03/25/16 at 09:00; Stop 03/25/16 at 09:01; Status UNV Influenza Virus Vaccine Quadrival (Fluarix Quad [id number] Syringe) 0.5 ml ONCE ONCE VAX IM ; Start 03/25/16 at 09:00; Stop 03/25/16 at 09:01; Status DC Pneumococcal Polyvalent Vaccine (Pneumovax 23) 0.5 ml ONCE ONCE VAX IM ; Start 03/25/16 at 09:00; Stop 03/25/16 at 09:01; Status DC Albuterol Sulfate (Ventolin Neb Soln) 2.5 mg PRN Q4HRS PRN NEB SHORTNESS OF BREATH Last administered on 03/25/16 06:53; Start 03/25/16 at 06:30 Acetaminophen (Tylenol) 650 mg PRN Q6HRS PRN PO MILD PAIN / TEMP; Start at 06:30 Acetaminophen (Tylenol) 650 mg 1X ONCE PO Last administered on 03/25/16 06:30 ; Start 03/25/16 at 06:30; Stop 03/25/16 at 06:32; Status DC Budesonide (Pulmicort) 0.5 mg RTBID NEB Last administered on 03/25/16 06:53; Start 03/25/16 at 08:00 Furosemide (Lasix) 20 mg 1X ONCE IVP Last administered on 03/25/16 08:29; Start 03/25/16 at 08:15; Stop 03/25/16 at 08:16; Status DC Piperacillin Sod/ Tazobactam Sod (Zosyn Per Pharmacy) 1 each PRN DAILY PRN MC SEE COMMENTS; Start 03/25/16 at 09:00 Vancomycin HCl 1 each 1 each PRN DAILY PRN MC SEE COMMENTS; Start 03/25/16 at 09:00 Sodium Chloride 1,000 ml @ 999 mls/hr 1X ONCE IV Last administered on 09:17; Start 03/25/16 at 09:15; Stop 03/25/16 at 10:15 Vancomycin HCl 1.75 gm/Sodium Chloride 500 ml @ 250 mls/hr 1X ONCE IV Last administered on 03/25/16 09:17; Start 03/25/16 at 09:30; Stop 03/25/16 at 11:29 Piperacillin Sod/ Tazobactam Sod/ Sodium Chloride (Zosyn/Iv Sodium Chloride 0.9 % 50ml) 50 ml @ 100 mls/hr Q6HRS IV Last administered on 03/25/16 09:18; Start 03/25/16 at 09:30 Active Scripts Active Reported [New Blood Sugar Med] PO BID [Lisinopril] Mg PO DAILY Vitals/I & O Vital Sign - Last 24 Hours 03/24/16 03/24/16 03/24/16 03/24/16 19:05 20:30 21:00 22:00 Temp 100.1 98.5 100.1 98.5 Pulse 123 106 102 111 Resp 18 13 12 20 B/P 122/65 119/66 105/59 93/63 Pulse Ox 95 96 97 93 O2 Delivery Room Air Room Air Room Air Room Air 03/24/16 03/24/16 03/25/16 03/25/16 22:55 23:00 03:00 05:43 Temp 98.1 97.9 98.1 97.9 Pulse 98 90 Resp 20 20 20 20 B/P 94/60 109/68 Pulse Ox 95 91 O2 Delivery Room Air Room Air Room Air Room Air 03/25/16 03/25/16 03/25/16 03/25/16 06:15 06:53 08:00 08:20 Temp 102.5 102.5 Pulse 130 122 Resp 20 22 B/P 138/81 124/65 Pulse Ox 80 88 100 O2 Delivery Room Air Non-Rebreather NonRebreather Mask 03/25/16 09:00 Pulse 108 Resp 20 B/P 122/62 Pulse Ox 96 O2 Delivery NonRebreather Mask Intake and Output 03/24/16 03/24/16 03/25/16 15:00 23:00 07:00 Intake Total 1000 ml 420 ml Output Total 80 ml Balance 1000 ml 340 ml CARLOS YEPEZ MD Mar 25, 2016 09:49
[2016-03-25] MEDS: VANCOMYCIN PER PHARMACY MC PRN (10:09)
[2016-03-25 10:18] LABS: BILIRUBIN,URINE NEGATIVE (NEG); GLUCOSE,URINE 100 mg/dL (NEG); NITRITE,URINE NEGATIVE (NEG); PH,URINE 5.5; PROTEIN,URINE 100 mg/dL (NEG-TRACE); UROBILINOGEN,URINE 0.2 mg/dL (0.2 mg/dL)
[2016-03-25 10:42] LABS: BACTERIA,URINE MODERATE /HPF (0-FEW); SQUAMOUS EPITHELIAL CELL,UR MOD /LPF
--- NOTE | 2016-03-25 14:31 | CARD ---
APPROVED REPORT EXAM: Two-dimensional and M-mode echocardiogram with Doppler and color Doppler. Other Information Quality : Good INDICATION hypoxia 2D DIMENSIONS RVDd2.9 (2.9-3.5cm)Left Atrium(2D)3.6 (1.6-4.0cm) IVSd0.9 (0.7-1.1cm)Aortic Root(2D)2.2 (2.0-3.7cm) LVDd4.5 (3.9-5.9cm)LVOT Diameter1.8 (1.8-2.4cm) PWd0.9 (0.7-1.1cm)LVDs2.9 (2.5-4.0cm) SV59.5 mlLVEF(%)60.0 (>50%) Aortic Valve AoV Peak Bob.142.2cm/sAoV VTI25.5cm AO Peak GR.8.1mmHgLVOT Peak Bob.120.1cm/s LVOT VTI 23.73cmAO Mean GR.5mmHg PRISCILA (VMAX)1.84xi7GIV (VTI)2.01cm2 Mitral Valve MV E Yaltknvw31.3cm/sMV DECEL IGAL773ty MV A Ubxakclw23.7cm/sMV E Mean Gr.2mmHg MV MDN34hqV/A Ratio1.7 MV A [id number] (PHT)4.04cm2 TDI E/Lateral E'5.7E/Medial E'9.2 Pulmonary Valve PV Peak Wnoatltr312.9cm/sPV Peak Grad.6mmHg RVOT VTI21.6cm Tricuspid Valve TR P. Byajpcts540yg/sTR Peak Gr.38mmHg Pulmonary Vein S1 Pfmniaaf53.1cm/sD2 Aqxfhswo84.1cm/s LEFT VENTRICLE The left ventricle is normal size. There is normal left ventricular wall thickness. The left ventricu lar systolic function is normal. The ejection fraction is estimated at 60%. There is normal LV segmen ne wall motion. The left ventricular diastolic function and filling is normal for age. RIGHT VENTRICLE The right ventricle is normal size. There is normal right ventricular wall thickness. The right ventr icular systolic function is normal. ATRIA The left atrium size is normal. The right atrium size is normal. The interatrial septum is intact wit h no evidence for an atrial septal defect or patent foramen ovale as noted on 2-D or Doppler imaging. AORTIC VALVE The aortic valve is normal in structure and function. Doppler and Color Flow revealed no significant aortic regurgitation. There is no significant aortic valvular stenosis. MITRAL VALVE The mitral valve is normal in structure and function. There is no mitral valve stenosis. Doppler and Color Flow revealed no mitral valve regurgitation noted. TRICUSPID VALVE The tricuspid valve is normal in structure and function. Doppler and Color Flow revealed mild tricusp id regurgitation. The PA pressure was estimated at 41 mmHg. PULMONIC VALVE The pulmonary valve is normal in structure and function. Doppler and Color Flow revealed trace pulmon ic valvular regurgitation. GREAT VESSELS The aortic root is normal in size. Normal pulmonary venous flow (Doppler). The IVC is normal in size and collapses >50% with inspiration. PERICARDIAL EFFUSION There is no evidence of significant pericardial effusion. Critical Notification Critical Value: No <Conclusion> The left ventricular systolic function is normal. The ejection fraction is estimated at 60%. There is normal LV segmental wall motion. Doppler and Color Flow revealed mild tricuspid regurgitation. The PA pressure was estimated at 41 mmHg. There is no evidence of significant pericardial effusion.
[2016-03-25] MEDS: MORPHINE SULFATE 2 MG/ML DISP.SYRIN. IV PRN (20:31)
[2016-03-25] MEDS: INSULIN DETEMIR 300 UNITS/3 ML INSULN.PEN. SQ SCH (21:28)
--- NOTE | 2016-03-25 23:06 | CONS ---
DATE OF CONSULTATION: PULMONARY CONSULTATION ATTENDING PHYSICIAN: Dr. Peace. REASON FOR CONSULTATION: Hypoxic respiratory failure. HISTORY OF PRESENT ILLNESS: The patient is a 45-year-old female who has no significant history of tobacco use. She occasionally drinks alcohol. She was brought into the hospital with worsening mid abdominal pain. She had emesis yesterday. She was receiving morphine 4 mg q. 2 hours p.r.n. This morning, a rapid response was called and she was noted to be hypoxic. She did not appear to be in any obvious respiratory distress, but due to her severity of hypoxia, she was placed on 100% oxygen. Arterial blood gases were obtained, they are not in [facility] yet, but I was told that the pO2 was in the high 30s on room air. Currently, she is in the ICU. She is saturating 95% on 100% FiO2. I have reviewed her initial chest x-ray at the time of rapid response, which showed diffuse bilateral interstitial infiltrates. The patient was given an order of Lasix; however, after review of CT of the chest, she has extensive infiltrates in both the lower lobes, right greater than the left and suggestive of multifocal pneumonia. There is a reactive left hilar and right hilar adenopathy. Consultation requested for further evaluation and management. PAST MEDICAL HISTORY: History of renal stones. History of diabetes. No significant history of tobacco use. PAST SURGICAL HISTORY: No recent surgery. ALLERGIES: None. MEDICATIONS: All reviewed including antibiotic, Rocephin. She is also on morphine 4 mg p.r.n. q. 2 hours, oxycodone. SYSTEMS REVIEW: Twelve-point system obtained. Pertinent positives discussed in my history of present illness, otherwise noncontributory. All systems that were negative were reviewed as well. SOCIAL HISTORY: Nonsmoker. PHYSICAL EXAMINATION: VITAL SIGNS: She has a blood pressure of 130 systolic. Pulse is in the 120s. She is currently afebrile with a T-max of 100.1. HEENT: Sclerae nonicteric. NECK: Supple. LUNGS: With few crackles at the bases. CARDIOVASCULAR: Regular rate and rhythm. ABDOMEN: Soft, nontender. EXTREMITIES: With no pitting edema. LABORATORY DATA: Reviewed. BUN 22, creatinine 1.7. Albumin 2.4. Urine had many bacteria. White cell count 5.6, hemoglobin 10.6 and platelets are 310. IMPRESSION: 1. Acute hypoxic respiratory failure, most likely related to bilateral lower lobe aspiration pneumonia. The patient had emesis yesterday and this morning as well and CT chest confirmed extensive bilateral lower lobe infiltrates. In addition, she was receiving 4 mg of morphine and hypoventilation is also contributing to hypoxia. Currently, comfortable on 100% oxygen. She would need broadening the antibiotic. 2. No significant history of tobacco use. 3. Abnormal ultrasound of the liver with hyperechoic 2.6-cm lesion in the superior pole of the right lobe of the liver, possibly hemangioma. Radiology suggested CT or MRI and will leave up to primary care. 4. Clinically unlikely congestive heart failure. 5. Clinical presentation consistent with sepsis. RECOMMENDATIONS: 1. Continue with present 100% oxygen and wean FiO2 once she makes clinical improvement. 2. Broaden the antibiotic. We will add Zosyn and vancomycin and discontinue Rocephin. 3. Consider infectious disease consult. 4. Bronchodilators p.r.n. 5. Follow chest x-ray in few days. 6. IV hydration to see an improvement in her blood pressure and heart rate. 7. Obtain echocardiogram, clinically unlikely CHF. 8. Discussed with the patient's and discussed with RN and RT. CRITICAL CARE TIME: 40 minutes. SHARRI LANG MD DR: KELLE/adan JOB#: [id number] / [id number] VIVI
[2016-03-26] VITALS (14 sets, daily range): BP systolic 123–169; BP diastolic 64–108
[2016-03-26] MEDS: IV NORMAL SALINE 1000ML BAG 1,000 ML IV SCH ×3 (05:53→18:30)
[2016-03-26] MEDS: PIPERACILLIN/TAZOBACTAM 2.25 GM in IV NORMAL SALINE 50ML 50 ML IV SCH ×4 (05:53→23:37)
[2016-03-26] MEDS: INSULIN ASPART 300 UNITS/3 ML INSULN.PEN SQ SCH ×4 (07:30→21:00)
--- NOTE | 2016-03-26 07:49 | RAD ---
EXAM: Renal sonogram. HISTORY: Renal insufficiency. TECHNIQUE: Sonographic imaging of the kidneys and bladder was performed. COMPARISON: None. FINDINGS: The right kidney measures 8.6 cm [id number] and the left kidney measures 12.5 cm [id number]. There is a right renal cortical thinning. There is a 1.1 cm cyst within the right lower pole. There is trace fluid within Morison's pouch. There is a small amount of free fluid within the pelvis. There is a Pimentel catheter within the bladder. IMPRESSION: 1. Decreased right renal size with cortical thinning likely due to atrophy. There is also a suspected 1.1 cm right renal cyst. 2. Nonspecific trace fluid within Morison's pouch and the dependent portions of the pelvis. 3. Pimentel catheter within the bladder.
--- NOTE | 2016-03-26 08:49 | PDOC ---
PULMONARY PROGRESS NOTES Subjective has sob, cough, sputum, dark , has abd pain, no cp Vitals Vital Signs Date Time Temp Pulse Resp B/P Pulse Ox O2 Delivery O2 Flow Rate FiO2 03/26/16 08:00 Room Air 03/26/16 08:00 98.3 97 18 142/77 92 98.3 03/25/16 16:00 2.0 Comments ros as above other sys otherwise neg General: Alert HEENT: Other (nc, at perrl, throat nose clear) Lungs: Clear, Other Cardiovascular: S1, S2 Abdomen: Soft, Non-tender, Other (no mass) Neuro Exam: Alert Extremities: Other (no c/c) Skin: Warm Labs Laboratory Tests Test 03/24/16 19:20 03/24/16 20:00 03/24/16 22:15 03/25/16 05:35 White Blood Count 9.4x10^3/uL (4.0-11.0) Red Blood Count 3.46x10^6/uL (3.50-5.40) Hemoglobin 10.0g/dL (12.0-15.5) Hematocrit 30.6% (36.0-47.0) Mean Corpuscular Volume 89fL (79-100) Mean Corpuscular Hemoglobin 29pg (25-35) Mean Corpuscular Hemoglobin Concent 33g/dL (31-37) Red Cell Distribution Width 13.5% (11.5-14.5) Platelet Count 312x10^3/uL (140-400) Neutrophils (%) (Auto) 87% (31-73) Lymphocytes (%) (Auto) 5% (24-48) Monocytes (%) (Auto) 3% (0-9) Eosinophils (%) (Auto) 4% (0-3) Basophils (%) (Auto) 1% (0-3) Neutrophils # (Auto) 8.2x10^3uL (1.8-7.7) Lymphocytes # (Auto) 0.5x10^3/uL (1.0-4.8) Monocytes # (Auto) 0.3x10^3/uL (0.0-1.1) Eosinophils # (Auto) 0.4x10^3/uL (0.0-0.7) Basophils # (Auto) 0.0x10^3/uL (0.0-0.2) Segmented Neutrophils % 60% (35-66) Band Neutrophils % 27% (0-9) Lymphocytes % 8% (24-48) Monocytes % 2% (0-10) Eosinophils % 3% (0-5) Toxic Granulation Slight Platelet Estimate Adequate (ADEQUATE) Sodium Level 133mmol/L (136-145) Potassium Level 3.8mmol/L (3.5-5.1) Chloride Level 99mmol/L (98-107) Carbon Dioxide Level 26mmol/L (21-32) Anion Gap 8 (6-14) Blood Urea Nitrogen 18mg/dL (7-20) Creatinine 1.3mg/dL (0.6-1.0) Estimated GFR (Cockcroft-Gault) 44.3 BUN/Creatinine Ratio 14 (6-20) Glucose Level 315mg/dL (70-99) Lactic Acid Level 0.8mmol/L (0.4-2.0) Calcium Level 8.7mg/dL (8.5-10.1) Total Bilirubin 0.4mg/dL (0.2-1.0) Aspartate Amino Transf (AST/SGOT) 15U/L (15-37) Alanine Aminotransferase (ALT/SGPT) 18U/L (14-59) Alkaline Phosphatase 97U/L (46-116) Total Protein 7.2g/dL (6.4-8.2) Albumin 2.6g/dL (3.4-5.0) Albumin/Globulin Ratio 0.6 (1.0-1.7) Lipase 247U/L (73-393) Urine Collection Type Unknown Urine Color Yellow Urine Clarity Cloudy Urine pH 5.5 Urine Specific [place] 1.020 Urine Protein 100mg/dL (NEG-TRACE) Urine Glucose (UA) >=1000mg/dL (NEG) Urine Ketones (Stick) Negativemg/dL (NEG) Urine Blood Moderate (NEG) Urine Nitrite Negative (NEG) Urine Bilirubin Negative (NEG) Urine Urobilinogen Dipstick 0.2mg/dL (0.2 mg/dL) Urine Leukocyte Esterase Small (NEG) Urine RBC 3-5/HPF (0-2) Urine WBC 11-20/HPF (0-4) Urine Squamous Epithelial Cells Few/LPF Urine Bacteria Many/HPF (0-FEW) Urine Test Negative (NEG) Glucose (Fingerstick) 340mg/dL (70-99) 211mg/dL (70-99) Test 03/25/16 06:35 03/25/16 06:55 03/25/16 08:30 03/25/16 08:45 White Blood Count 5.6x10^3/uL (4.0-11.0) Red Blood Count 3.64x10^6/uL (3.50-5.40) Hemoglobin 10.6g/dL (12.0-15.5) Hematocrit 31.8% (36.0-47.0) Mean Corpuscular Volume 88fL (79-100) Mean Corpuscular Hemoglobin 29pg (25-35) Mean Corpuscular Hemoglobin Concent 34g/dL (31-37) Red Cell Distribution Width 13.7% (11.5-14.5) Platelet Count 310x10^3/uL (140-400) Neutrophils (%) (Auto) 83% (31-73) Lymphocytes (%) (Auto) 10% (24-48) Monocytes (%) (Auto) 1% (0-9) Eosinophils (%) (Auto) 6% (0-3) Basophils (%) (Auto) 1% (0-3) Neutrophils # (Auto) 4.6x10^3uL (1.8-7.7) Lymphocytes # (Auto) 0.6x10^3/uL (1.0-4.8) Monocytes # (Auto) 0.0x10^3/uL (0.0-1.1) Eosinophils # (Auto) 0.3x10^3/uL (0.0-0.7) Basophils # (Auto) 0.1x10^3/uL (0.0-0.2) Sodium Level 138mmol/L (136-145) Potassium Level 4.1mmol/L (3.5-5.1) Chloride Level 102mmol/L (98-107) Carbon Dioxide Level 23mmol/L (21-32) Anion Gap 13 (6-14) Blood Urea Nitrogen 22mg/dL (7-20) Creatinine 1.7mg/dL (0.6-1.0) Estimated GFR (Cockcroft-Gault) 32.5 BUN/Creatinine Ratio 13 (6-20) Glucose Level 263mg/dL (70-99) Hemoglobin A1c 10.8% (4.8-5.6) Calcium Level 8.1mg/dL (8.5-10.1) Total Bilirubin 0.4mg/dL (0.2-1.0) Aspartate Amino Transf (AST/SGOT) 20U/L (15-37) Alanine Aminotransferase (ALT/SGPT) 19U/L (14-59) Alkaline Phosphatase 89U/L (46-116) Total Protein 7.2g/dL (6.4-8.2) Albumin 2.4g/dL (3.4-5.0) Albumin/Globulin Ratio 0.5 (1.0-1.7) Lactic Acid Level 2.2mmol/L (0.4-2.0) Nasal Screen MRSA (PCR) Negative (Negative) Glucose (Fingerstick) 271mg/dL (70-99) Test 03/25/16 10:00 03/25/16 10:55 03/25/16 11:30 03/25/16 16:39 Urine Collection Type Unknown Urine Color Yellow Urine Clarity Cloudy Urine pH 5.5 Urine Specific [place] 1.010 Urine Protein 100mg/dL (NEG-TRACE) Urine Glucose (UA) 100mg/dL (NEG) Urine Ketones (Stick) Negativemg/dL (NEG) Urine Blood Moderate (NEG) Urine Nitrite Negative (NEG) Urine Bilirubin Negative (NEG) Urine Urobilinogen Dipstick 0.2mg/dL (0.2 mg/dL) Urine Leukocyte Esterase Moderate (NEG) Urine RBC 6-10/HPF (0-2) Urine WBC 11-20/HPF (0-4) Urine Squamous Epithelial Cells Mod/LPF Urine Bacteria Moderate/HPF (0-FEW) Urine Hyaline Casts Occasional/HPF Urine Granular Casts Few/HPF Urine Mucus Slight/LPF Lactic Acid Level 2.0mmol/L (0.4-2.0) Glucose (Fingerstick) 188mg/dL (70-99) 179mg/dL (70-99) Test 03/25/16 20:35 Glucose (Fingerstick) 141mg/dL (70-99) Laboratory Tests Test 03/25/16 10:00 03/25/16 10:55 03/25/16 11:30 03/25/16 16:39 Urine Collection Type Unknown Urine Color Yellow Urine Clarity Cloudy Urine pH 5.5 Urine Specific [place] 1.010 Urine Protein 100mg/dL (NEG-TRACE) Urine Glucose (UA) 100mg/dL (NEG) Urine Ketones (Stick) Negativemg/dL (NEG) Urine Blood Moderate (NEG) Urine Nitrite Negative (NEG) Urine Bilirubin Negative (NEG) Urine Urobilinogen Dipstick 0.2mg/dL (0.2 mg/dL) Urine Leukocyte Esterase Moderate (NEG) Urine RBC 6-10/HPF (0-2) Urine WBC 11-20/HPF (0-4) Urine Squamous Epithelial Cells Mod/LPF Urine Bacteria Moderate/HPF (0-FEW) Urine Hyaline Casts Occasional/HPF Urine Granular Casts Few/HPF Urine Mucus Slight/LPF Lactic Acid Level 2.0mmol/L (0.4-2.0) Glucose (Fingerstick) 188mg/dL (70-99) 179mg/dL (70-99) Test 03/25/16 20:35 Glucose (Fingerstick) 141mg/dL (70-99) Medications Active Scripts Medications Dose Route/Sig Days Date Category [New Blood Sugar Med] PO BID 03/24/16 Reported [Lisinopril] Mg PO DAILY 03/24/[address] of chest reviewed, 1. Right greater than left lower lobe predominant multifocal pneumonia. Follow-up to confirm resolution. 2. Right greater than left hilar lymphadenopathy, likely reactive given the forementioned finding. Follow-up to confirm resolution. Impression . IMPRESSION: 1. Acute hypoxic respiratory failure, most likely related to bilateral lower lobe aspiration pneumonia. The patient had emesis yesterday and this morning as well and CT chest confirmed extensive bilateral lower lobe infiltrates. In addition, she was receiving 4 mg of morphine and hypoventilation is also contributing to hypoxia. 2. No significant history of tobacco use. 3. Abnormal ultrasound of the liver with hyperechoic 2.6-cm lesion in the superior pole of the right lobe of the liver, possibly hemangioma. Radiology suggested CT or MRI and will leave up to primary care. 4. Clinically unlikely congestive heart failure. 5. Clinical presentation consistent with sepsis. 6. abnl cxr and ct of chest Plan . RECOMMENDATIONS: 1. 02 titration 2. Zosyn and vancomycin 3. Consider infectious disease consult. 4. Bronchodilators qid, pulmicort 5. Follow chest x-ray in few days. 6. IV hydration to see an improvement in her blood pressure and heart rate. 7. Obtain echocardiogram, clinically unlikely CHF. 8. Discussed with with RN and pt. 9. MISHA Vidales MD Mar 26, 2016 08:48
[2016-03-26] MEDS: IPRATRPIUM/ALBUTEROL 0.5/2.5MG 3 ML NEBU. NEB SCH ×4 (09:00→20:00)
[2016-03-26] MEDS: FAMOTIDINE 20 MG TABLET. PO SCH ×2 (09:03→19:40)
[2016-03-26] MEDS: DOCUSATE SODIUM 100 MG CAPSULE PO SCH (09:03)
[2016-03-26] MEDS: MORPHINE SULFATE 2 MG/ML DISP.SYRIN. IV PRN ×3 (09:04→20:28)
[2016-03-26] MEDS: VANCOMYCIN 1.25 GM in IV NORMAL SALINE 250ML 250 ML IV SCH (09:04)
[2016-03-26] MEDS: BUDESONIDE 0.5 MG/2 ML NEBU NEB SCH ×2 (09:37→20:00)
[2016-03-26] MEDS: VANCOMYCIN PER PHARMACY MC PRN (10:28)
--- NOTE | 2016-03-26 10:37 | PDOC ---
PROGRESS NOTES Chief Complaint Chief Complaint CC: ABDOMINAL PAIN A/P SEPSIS POA, PNEUMONIA UTI -ECOLI HYPERGLYCEMIA HBAC>10 RUQ PAIN, HEPATOMEGALY ? HEMANGIOMA DIDI PLAN IV ZOSYN AND VANCOMYCIN RENAL DOS ING VANCOMYCIN RENAL CONSULT NOTED GI CONSULT SSI WITH 20 LEVEMIR PAIN CONTROL WITH IV NARCOTIC FOLLOW CX IV HYDRATION RENAL US NOTED LABS REVIEWED, DVT PROPHYLAXIS TRANSFER OUT OF ICU History of Present Illness History of Present Illness ABDOMINAL PAIN NO FEVER 5/10 PAIN GETTING WORSE WITH FOOD Vitals Vitals Vital Signs Date Time Temp Pulse Resp B/P Pulse Ox O2 Delivery O2 Flow Rate FiO2 03/26/16 09:37 Room Air 03/26/16 09:34 92 2.0 03/26/16 09:00 97 11 169/90 03/26/16 08:00 98.3 98.3 Physical Exam General: Alert, Oriented X3, Cooperative, Other Heart: Normal S1, Normal S2 Lungs: Clear, Other Abdomen: Soft (tender epigastrum, no rebound, some guarding), No masses, Other (TENDER RUQ) Extremities: No clubbing, No cyanosis Labs LABS Laboratory Tests Test 03/25/16 10:55 03/25/16 11:30 03/25/16 16:39 03/25/16 20:35 Lactic Acid Level 2.0mmol/L (0.4-2.0) Glucose (Fingerstick) 188mg/dL (70-99) 179mg/dL (70-99) 141mg/dL (70-99) Test 03/26/16 08:08 Glucose (Fingerstick) 110mg/dL (70-99) Assessment and Plan Assessmemt and Plan Problems Medical Problems: (1) Abdominal pain Status: Acute (2) Atrophic kidney Status: Acute (3) Flank pain Status: Acute (4) Liver lesion Status: Acute Problems: Comment Review of Relevant I have reviewed the following items minnie (where applicable) has been applied. Labs Laboratory Tests Test 03/24/16 19:20 03/24/16 20:00 03/24/16 22:15 03/25/16 05:35 White Blood Count 9.4x10^3/uL (4.0-11.0) Red Blood Count 3.46x10^6/uL (3.50-5.40) Hemoglobin 10.0g/dL (12.0-15.5) Hematocrit 30.6% (36.0-47.0) Mean Corpuscular Volume 89fL (79-100) Mean Corpuscular Hemoglobin 29pg (25-35) Mean Corpuscular Hemoglobin Concent 33g/dL (31-37) Red Cell Distribution Width 13.5% (11.5-14.5) Platelet Count 312x10^3/uL (140-400) Neutrophils (%) (Auto) 87% (31-73) Lymphocytes (%) (Auto) 5% (24-48) Monocytes (%) (Auto) 3% (0-9) Eosinophils (%) (Auto) 4% (0-3) Basophils (%) (Auto) 1% (0-3) Neutrophils # (Auto) 8.2x10^3uL (1.8-7.7) Lymphocytes # (Auto) 0.5x10^3/uL (1.0-4.8) Monocytes # (Auto) 0.3x10^3/uL (0.0-1.1) Eosinophils # (Auto) 0.4x10^3/uL (0.0-0.7) Basophils # (Auto) 0.0x10^3/uL (0.0-0.2) Segmented Neutrophils % 60% (35-66) Band Neutrophils % 27% (0-9) Lymphocytes % 8% (24-48) Monocytes % 2% (0-10) Eosinophils % 3% (0-5) Toxic Granulation Slight Platelet Estimate Adequate (ADEQUATE) Sodium Level 133mmol/L (136-145) Potassium Level 3.8mmol/L (3.5-5.1) Chloride Level 99mmol/L (98-107) Carbon Dioxide Level 26mmol/L (21-32) Anion Gap 8 (6-14) Blood Urea Nitrogen 18mg/dL (7-20) Creatinine 1.3mg/dL (0.6-1.0) Estimated GFR (Cockcroft-Gault) 44.3 BUN/Creatinine Ratio 14 (6-20) Glucose Level 315mg/dL (70-99) Lactic Acid Level 0.8mmol/L (0.4-2.0) Calcium Level 8.7mg/dL (8.5-10.1) Total Bilirubin 0.4mg/dL (0.2-1.0) Aspartate Amino Transf (AST/SGOT) 15U/L (15-37) Alanine Aminotransferase (ALT/SGPT) 18U/L (14-59) Alkaline Phosphatase 97U/L (46-116) Total Protein 7.2g/dL (6.4-8.2) Albumin 2.6g/dL (3.4-5.0) Albumin/Globulin Ratio 0.6 (1.0-1.7) Lipase 247U/L (73-393) Urine Collection Type Unknown Urine Color Yellow Urine Clarity Cloudy Urine pH 5.5 Urine Specific [place] 1.020 Urine Protein 100mg/dL (NEG-TRACE) Urine Glucose (UA) >=1000mg/dL (NEG) Urine Ketones (Stick) Negativemg/dL (NEG) Urine Blood Moderate (NEG) Urine Nitrite Negative (NEG) Urine Bilirubin Negative (NEG) Urine Urobilinogen Dipstick 0.2mg/dL (0.2 mg/dL) Urine Leukocyte Esterase Small (NEG) Urine RBC 3-5/HPF (0-2) Urine WBC 11-20/HPF (0-4) Urine Squamous Epithelial Cells Few/LPF Urine Bacteria Many/HPF (0-FEW) Urine Test Negative (NEG) Glucose (Fingerstick) 340mg/dL (70-99) 211mg/dL (70-99) Test 03/25/16 06:35 03/25/16 06:55 03/25/16 08:30 03/25/16 08:45 White Blood Count 5.6x10^3/uL (4.0-11.0) Red Blood Count 3.64x10^6/uL (3.50-5.40) Hemoglobin 10.6g/dL (12.0-15.5) Hematocrit 31.8% (36.0-47.0) Mean Corpuscular Volume 88fL (79-100) Mean Corpuscular Hemoglobin 29pg (25-35) Mean Corpuscular Hemoglobin Concent 34g/dL (31-37) Red Cell Distribution Width 13.7% (11.5-14.5) Platelet Count 310x10^3/uL (140-400) Neutrophils (%) (Auto) 83% (31-73) Lymphocytes (%) (Auto) 10% (24-48) Monocytes (%) (Auto) 1% (0-9) Eosinophils (%) (Auto) 6% (0-3) Basophils (%) (Auto) 1% (0-3) Neutrophils # (Auto) 4.6x10^3uL (1.8-7.7) Lymphocytes # (Auto) 0.6x10^3/uL (1.0-4.8) Monocytes # (Auto) 0.0x10^3/uL (0.0-1.1) Eosinophils # (Auto) 0.3x10^3/uL (0.0-0.7) Basophils # (Auto) 0.1x10^3/uL (0.0-0.2) Sodium Level 138mmol/L (136-145) Potassium Level 4.1mmol/L (3.5-5.1) Chloride Level 102mmol/L (98-107) Carbon Dioxide Level 23mmol/L (21-32) Anion Gap 13 (6-14) Blood Urea Nitrogen 22mg/dL (7-20) Creatinine 1.7mg/dL (0.6-1.0) Estimated GFR (Cockcroft-Gault) 32.5 BUN/Creatinine Ratio 13 (6-20) Glucose Level 263mg/dL (70-99) Hemoglobin A1c 10.8% (4.8-5.6) Calcium Level 8.1mg/dL (8.5-10.1) Total Bilirubin 0.4mg/dL (0.2-1.0) Aspartate Amino Transf (AST/SGOT) 20U/L (15-37) Alanine Aminotransferase (ALT/SGPT) 19U/L (14-59) Alkaline Phosphatase 89U/L (46-116) Total Protein 7.2g/dL (6.4-8.2) Albumin 2.4g/dL (3.4-5.0) Albumin/Globulin Ratio 0.5 (1.0-1.7) Lactic Acid Level 2.2mmol/L (0.4-2.0) Nasal Screen MRSA (PCR) Negative (Negative) Glucose (Fingerstick) 271mg/dL (70-99) Test 03/25/16 10:00 03/25/16 10:55 03/25/16 11:30 03/25/16 16:39 Urine Collection Type Unknown Urine Color Yellow Urine Clarity Cloudy Urine pH 5.5 Urine Specific [place] 1.010 Urine Protein 100mg/dL (NEG-TRACE) Urine Glucose (UA) 100mg/dL (NEG) Urine Ketones (Stick) Negativemg/dL (NEG) Urine Blood Moderate (NEG) Urine Nitrite Negative (NEG) Urine Bilirubin Negative (NEG) Urine Urobilinogen Dipstick 0.2mg/dL (0.2 mg/dL) Urine Leukocyte Esterase Moderate (NEG) Urine RBC 6-10/HPF (0-2) Urine WBC 11-20/HPF (0-4) Urine Squamous Epithelial Cells Mod/LPF Urine Bacteria Moderate/HPF (0-FEW) Urine Hyaline Casts Occasional/HPF Urine Granular Casts Few/HPF Urine Mucus Slight/LPF Lactic Acid Level 2.0mmol/L (0.4-2.0) Glucose (Fingerstick) 188mg/dL (70-99) 179mg/dL (70-99) Test 03/25/16 20:35 03/26/16 08:08 Glucose (Fingerstick) 141mg/dL (70-99) 110mg/dL (70-99) Laboratory Tests Test 03/25/16 10:55 03/25/16 11:30 03/25/16 16:39 03/25/16 20:35 Lactic Acid Level 2.0mmol/L (0.4-2.0) Glucose (Fingerstick) 188mg/dL (70-99) 179mg/dL (70-99) 141mg/dL (70-99) Test 03/26/16 08:08 Glucose (Fingerstick) 110mg/dL (70-99) Microbiology 03/24/16 Blood Culture - Preliminary, Resulted NO GROWTH AFTER 1 DAY 03/24/16 Urine Culture - Preliminary, Resulted 03/24/16 Urine Culture Result 1 (ABA) - Preliminary, Resulted Medications Current Medications Sodium Chloride (Iv Sodium Chloride 0.9% 1000ml Bag) 1,000 ml @ 1,000 mls/hr 1X ONCE IV Last administered on 03/24/16 19:39; Start 03/24/16 at 19:30; Stop 03/24/16 at 20:29; Status DC Ondansetron HCl (Zofran) 4 mg 1X ONCE IV Last administered on 03/24/16 19:36 ; Start 03/24/16 at 19:30; Stop 03/24/16 at 19:31; Status DC Hydromorphone HCl (Dilaudid) 0.5 mg 1X ONCE IV Last administered on 03/24/16 19:36; Start 03/24/16 at 19:30; Stop 03/24/16 at 19:31; Status DC Acetaminophen (Tylenol) 1,000 mg 1X ONCE PO Last administered on 03/24/16 19: 36; Start 03/24/16 at 19:30; Stop 03/24/16 at 19:31; Status DC Ondansetron HCl (Zofran) 4 mg PRN Q8HRS PRN IV NAUSEA/VOMITING Last administered on 03/25/16 05:37; Start 03/24/16 at 21:45; Stop 03/25/16 at 21:44 ; Status DC Morphine Sulfate 4 mg 4 mg PRN Q2HR PRN IV PAIN Last administered on 03/25/16 05:43; Start 03/24/16 at 21:45; Stop 03/25/16 at 08:59; Status DC Sodium Chloride (Iv Sodium Chloride 0.9% 1000ml Bag) 1,000 ml @ 100 mls/hr Q10H IV Last administered on 03/25/16 16:45; Start 03/24/16 at 21:45; Stop 02/27 at 21:44; Status DC Acetaminophen 650 mg 650 mg PRN Q4HRS PRN PO FEVER Last administered on 17:10; Start 03/24/16 at 21:45; Stop 03/25/16 at 21:44; Status DC Ceftriaxone Sodium (Rocephin 1gm Ivpb For Omni) 50 ml @ 100 mls/hr 1X ONCE IV ; Start 03/24/16 at 21:45; Stop 03/25/16 at 08:59; Status DC Insulin Aspart (Novolog) 0-9 UNITS QIDACHS SQ Last administered on 03/25/16 16 :46; Start 03/25/16 at 07:30 Dextrose 12.5 gm 12.5 gm PRN Q15MIN PRN IV SEE COMMENTS; Start 03/24/16 at 22: 30 Ceftriaxone Sodium/Sodium Chloride (Rocephin/Iv Sodium Chloride 0.9% 50ml) 50 ml @ 100 mls/hr Q24H IV Last administered on 03/24/16 22:53; Start 03/24/16 at 22:30; Stop 03/25/16 at 08:59; Status DC Insulin Detemir (Levemir) 10 units QHS SQ Last administered on 03/24/16 23:07 ; Start 03/24/16 at 22:30; Stop 03/25/16 at 19:32; Status DC Famotidine (Pepcid) 20 mg BID PO Last administered on 03/26/16 09:03; Start at 22:45; Stop 03/26/16 at 10:32; Status DC Calcium Carbonate/ Glycine (Tums) 500 mg PRN AFTMEALHC PRN PO INDIGESTION; Start 03/24/16 at 22:45 Multi-Ingredient Mouthwash/Gargle (Gi Cocktail Single Dose) 15 ml 1X ONCE SWSW Last administered on 03/24/16 22:54; Start 03/24/16 at 22:45; Stop 03/24/16 at 22:46; Status DC Oxycodone/ Acetaminophen (Percocet 5/325) 1 tab PRN Q4HRS PRN PO moderate - severe pain; Start 03/24/16 at 22:45 Docusate Sodium (Colace) 100 mg PRN DAILY PRN PO CONSTIPATION; Start 03/24/16 at 22:45 Docusate Sodium 100 mg 100 mg DAILY PO Last administered on 03/26/16 09:03; Start 03/25/16 at 09:00 Ceftriaxone Sodium/Sodium Chloride (Rocephin/Iv Sodium Chloride 0.9% 50ml) 50 ml @ 100 mls/hr ONCE ONCE IV ; Start 03/24/16 at 23:00; Stop 03/24/16 at 23:29 ; Status Cancel Info (Do NOT chart on this placeholder) 1 each 1X ONCE MC ; Start 03/25/16 at 09:00; Stop 03/25/16 at 09:01; Status UNV Pneumococcal Polyvalent Vaccine (Do NOT chart on this placeholder) 1 each 1X ONCE MC ; Start 03/25/16 at 09:00; Stop 03/25/16 at 09:01; Status UNV Influenza Virus Vaccine Quadrival (Fluarix Quad [id number] Syringe) 0.5 ml ONCE ONCE VAX IM ; Start 03/25/16 at 09:00; Stop 03/25/16 at 09:01; Status DC Pneumococcal Polyvalent Vaccine (Pneumovax 23) 0.5 ml ONCE ONCE VAX IM ; Start 03/25/16 at 09:00; Stop 03/25/16 at 09:01; Status DC Albuterol Sulfate (Ventolin Neb Soln) 2.5 mg PRN Q4HRS PRN NEB SHORTNESS OF BREATH Last administered on 03/25/16 06:53; Start 03/25/16 at 06:30 Acetaminophen (Tylenol) 650 mg PRN Q6HRS PRN PO MILD PAIN / TEMP; Start at 06:30 Acetaminophen (Tylenol) 650 mg 1X ONCE PO Last administered on 03/25/16 06:30 ; Start 03/25/16 at 06:30; Stop 03/25/16 at 06:32; Status DC Budesonide (Pulmicort) 0.5 mg RTBID NEB Last administered on 03/26/16 09:37; Start 03/25/16 at 08:00 Furosemide (Lasix) 20 mg 1X ONCE IVP Last administered on 03/25/16 08:29; Start 03/25/16 at 08:15; Stop 03/25/16 at 08:16; Status DC Piperacillin Sod/ Tazobactam Sod (Zosyn Per Pharmacy) 1 each PRN DAILY PRN MC SEE COMMENTS; Start 03/25/16 at 09:00 Vancomycin HCl 1 each 1 each PRN DAILY PRN MC SEE COMMENTS Last administered on 03/26/16 10:28; Start 03/25/16 at 09:00 Sodium Chloride 1,000 ml @ 999 mls/hr 1X ONCE IV Last administered on 09:17; Start 03/25/16 at 09:15; Stop 03/25/16 at 10:15; Status DC Vancomycin HCl 1.75 gm/Sodium Chloride 500 ml @ 250 mls/hr 1X ONCE IV Last administered on 03/25/16 09:17; Start 03/25/16 at 09:30; Stop 03/25/16 at 11:29 ; Status DC Piperacillin Sod/ Tazobactam Sod 2.25 gm/Sodium Chloride 50 ml @ 100 mls/hr Q6HRS IV Last administered on 03/26/16 05:53; Start 03/25/16 at 09:30 Sodium Chloride 1,000 ml @ 125 mls/hr Q8H IV Last administered on 03/26/16 05 :53; Start 03/25/16 at 10:30 Vancomycin HCl/ Sodium Chloride (Iv Sodium Chloride 0.9% 250ml) 250 ml @ 167 mls/hr Q24H IV Last administered on 03/26/16 09:04; Start 03/26/16 at 09:00 Vancomycin HCl 1 each 1X ONCE MC ; Start 03/27/16 at 08:30; Stop 03/27/16 at 08 :31 Insulin Detemir (Levemir) 15 units QHS SQ Last administered on 03/25/16 21:28 ; Start 03/25/16 at 21:00 Morphine Sulfate 2 mg PRN Q2HR PRN IV PAIN Last administered on 03/26/16 09:04 ; Start 03/25/16 at 20:30 Albuterol/ Ipratropium (Duoneb) 3 ml RTQID NEB Last administered on 03/26/16 09:00; Start 03/26/16 at 09:00 Famotidine (Pepcid) 20 mg QHS PO ; Start 03/26/16 at 21:00 Active Scripts Active Reported [New Blood Sugar Med] PO BID [Lisinopril] Mg PO DAILY Vitals/I & O Vital Sign - Last 24 Hours 03/25/16 03/25/16 03/25/16 03/25/16 11:00 12:00 12:00 13:00 Temp 98.3 98.3 Pulse 96 95 87 Resp B/P 95/48 89/44 104/53 Pulse Ox 98 98 96 O2 Delivery Nasal Cannula Nasal Cannula Nasal Cannula Nasal Cannula O2 Flow Rate 3.0 2.0 2.0 2.0 03/25/16 03/25/16 03/25/16 03/25/16 14:00 15:00 16:00 16:00 Temp 98.4 98.4 Pulse 87 88 86 Resp B/P 87/47 103/51 119/61 Pulse Ox 96 99 98 O2 Delivery Nasal Cannula Nasal Cannula Nasal Cannula Nasal Cannula O2 Flow Rate 2.0 2.0 2.0 2.0 1/1203/25/16 03/25/16 03/25/16 17:00 18:00 18:25 19:55 Pulse 87 88 Resp 20 19 B/P 128/70 138/73 Pulse Ox 93 94 99 96 O2 Delivery Room Air Room Air Room Air Room Air 03/25/16 03/25/16 03/25/16 03/25/16 20:00 20:00 20:31 21:01 Temp 98.8 98.8 Pulse 93 Resp 16 16 12 B/P 135/70 Pulse Ox 97 O2 Delivery Room Air Room Air Room Air 03/25/16 03/26/16 03/26/16 03/26/16 22:02 00:27 00:31 01:00 Temp 98.5 98.5 Pulse 95 93 96 Resp 16 18 B/P 150/80 139/74 127/68 Pulse Ox 94 92 92 O2 Delivery Room Air Room Air Room Air Room Air 03/26/16 03/26/16 03/26/16 03/26/16 02:00 03:00 04:00 04:00 Temp 98.1 98.1 Pulse 86 86 88 Resp 16 12 B/P 123/64 125/64 135/70 Pulse Ox 92 92 90 O2 Delivery Room Air Room Air Room Air Room Air 03/26/16 03/26/16 03/26/16 03/26/16 06:20 07:00 08:00 08:00 Temp 98.3 98.3 Pulse 92 89 97 Resp 16 16 18 B/P 140/78 131/68 142/77 Pulse Ox 91 94 92 O2 Delivery Room Air Room Air Room Air Room Air 03/26/16 03/26/16 03/26/16 03/26/16 09:00 09:04 09:34 09:37 Pulse 97 Resp 11 B/P 169/90 Pulse Ox 92 92 92 O2 Delivery Room Air Room Air Room Air Room Air O2 Flow Rate 2.0 2.0 Intake and Output 03/25/16 03/25/16 03/26/16 15:00 23:00 07:00 Intake Total 860 ml 2922 ml 1650 ml Output Total 1770 ml 275 ml 830 ml Balance -910 ml 2647 ml 820 ml CARLOS YEPEZ MD Mar 26, 2016 10:37
--- NOTE | 2016-03-26 10:41 | PDOC2 ---
CONSULT Date of Consult Date of Consult DATE: 03/26/16 TIME: 10:35 Reason for Consult Reason for Consult: DIDI Referring Physician Referring Physician: JENNIFER Identification/Chief Complaint Chief Complaint ABD PAIN, SOB, FLANK PAIN Source Source: Chart review, Patient History of Present Illness Reason for Visit: THIS IS A 45 YR OLD ADMITTED WITH ABD PAIN AND FLANK PAIN, IMAGING STUDIES HAVE BEEN NEG SO FAR. SHE HAD SOME EMESIS AND THEN SOB. SHE IS FELT TO HAVE ASPIRATION PNEUMONIA. NO HX OF KIDNEY PROBLEMS SHE IS AWARE OF OTHER THAN POSSIBLE HX OF RENAL STONES. RENAL SONO HERE SHOWED A BENIGN RENAL CYST AND NEG OTHERWISE. STATES THAT SHE HAS NOT HAD AN APPETITE FOR ABOUT A WEEK. UA IS NEG Past Medical History Cardiovascular: No pertinent hx Hepatobiliary: No pertinent hx Renal/: Other (kidney stone) Endocrine: Diabetes Past Surgical History Past Surgical History: No pertinent history Family History Family History: No Significant Social History No ALCOHOL: rare Drugs: None Lives: with Family Current Problem List Problem List Problems Medical Problems: (1) Abdominal pain Status: Acute (2) Atrophic kidney Status: Acute (3) Flank pain Status: Acute (4) Liver lesion Status: Acute Current Medications Current Medications Current Medications Sodium Chloride (Iv Sodium Chloride 0.9% 1000ml Bag) 1,000 ml @ 1,000 mls/hr 1X ONCE IV Last administered on 03/24/16 19:39; Start 03/24/16 at 19:30; Stop 03/24/16 at 20:29; Status DC Ondansetron HCl (Zofran) 4 mg 1X ONCE IV Last administered on 03/24/16 19:36 ; Start 03/24/16 at 19:30; Stop 03/24/16 at 19:31; Status DC Hydromorphone HCl (Dilaudid) 0.5 mg 1X ONCE IV Last administered on 03/24/16 19:36; Start 03/24/16 at 19:30; Stop 03/24/16 at 19:31; Status DC Acetaminophen (Tylenol) 1,000 mg 1X ONCE PO Last administered on 03/24/16 19: 36; Start 03/24/16 at 19:30; Stop 03/24/16 at 19:31; Status DC Ondansetron HCl (Zofran) 4 mg PRN Q8HRS PRN IV NAUSEA/VOMITING Last administered on 03/25/16 05:37; Start 03/24/16 at 21:45; Stop 03/25/16 at 21:44 ; Status DC Morphine Sulfate 4 mg 4 mg PRN Q2HR PRN IV PAIN Last administered on 03/25/16 05:43; Start 03/24/16 at 21:45; Stop 03/25/16 at 08:59; Status DC Sodium Chloride (Iv Sodium Chloride 0.9% 1000ml Bag) 1,000 ml @ 100 mls/hr Q10H IV Last administered on 03/25/16 16:45; Start 03/24/16 at 21:45; Stop 02/27 at 21:44; Status DC Acetaminophen 650 mg 650 mg PRN Q4HRS PRN PO FEVER Last administered on 17:10; Start 03/24/16 at 21:45; Stop 03/25/16 at 21:44; Status DC Ceftriaxone Sodium (Rocephin 1gm Ivpb For Omni) 50 ml @ 100 mls/hr 1X ONCE IV ; Start 03/24/16 at 21:45; Stop 03/25/16 at 08:59; Status DC Insulin Aspart (Novolog) 0-9 UNITS QIDACHS SQ Last administered on 03/25/16 16 :46; Start 03/25/16 at 07:30 Dextrose 12.5 gm 12.5 gm PRN Q15MIN PRN IV SEE COMMENTS; Start 03/24/16 at 22: 30 Ceftriaxone Sodium/Sodium Chloride (Rocephin/Iv Sodium Chloride 0.9% 50ml) 50 ml @ 100 mls/hr Q24H IV Last administered on 03/24/16 22:53; Start 03/24/16 at 22:30; Stop 03/25/16 at 08:59; Status DC Insulin Detemir (Levemir) 10 units QHS SQ Last administered on 03/24/16 23:07 ; Start 03/24/16 at 22:30; Stop 03/25/16 at 19:32; Status DC Famotidine (Pepcid) 20 mg BID PO Last administered on 03/26/16 09:03; Start at 22:45; Stop 03/26/16 at 10:32; Status DC Calcium Carbonate/ Glycine (Tums) 500 mg PRN AFTMEALHC PRN PO INDIGESTION; Start 03/24/16 at 22:45 Multi-Ingredient Mouthwash/Gargle (Gi Cocktail Single Dose) 15 ml 1X ONCE SWSW Last administered on 03/24/16 22:54; Start 03/24/16 at 22:45; Stop 03/24/16 at 22:46; Status DC Oxycodone/ Acetaminophen (Percocet 5/325) 1 tab PRN Q4HRS PRN PO moderate - severe pain; Start 03/24/16 at 22:45 Docusate Sodium (Colace) 100 mg PRN DAILY PRN PO CONSTIPATION; Start 03/24/16 at 22:45 Docusate Sodium 100 mg 100 mg DAILY PO Last administered on 03/26/16 09:03; Start 03/25/16 at 09:00 Ceftriaxone Sodium/Sodium Chloride (Rocephin/Iv Sodium Chloride 0.9% 50ml) 50 ml @ 100 mls/hr ONCE ONCE IV ; Start 03/24/16 at 23:00; Stop 03/24/16 at 23:29 ; Status Cancel Info (Do NOT chart on this placeholder) 1 each 1X ONCE MC ; Start 03/25/16 at 09:00; Stop 03/25/16 at 09:01; Status UNV Pneumococcal Polyvalent Vaccine (Do NOT chart on this placeholder) 1 each 1X ONCE MC ; Start 03/25/16 at 09:00; Stop 03/25/16 at 09:01; Status UNV Influenza Virus Vaccine Quadrival (Fluarix Quad 2408-2412 Syringe) 0.5 ml ONCE ONCE VAX IM ; Start 03/25/16 at 09:00; Stop 03/25/16 at 09:01; Status DC Pneumococcal Polyvalent Vaccine (Pneumovax 23) 0.5 ml ONCE ONCE VAX IM ; Start 03/25/16 at 09:00; Stop 03/25/16 at 09:01; Status DC Albuterol Sulfate (Ventolin Neb Soln) 2.5 mg PRN Q4HRS PRN NEB SHORTNESS OF BREATH Last administered on 03/25/16 06:53; Start 03/25/16 at 06:30 Acetaminophen (Tylenol) 650 mg PRN Q6HRS PRN PO MILD PAIN / TEMP; Start at 06:30 Acetaminophen (Tylenol) 650 mg 1X ONCE PO Last administered on 03/25/16 06:30 ; Start 03/25/16 at 06:30; Stop 03/25/16 at 06:32; Status DC Budesonide (Pulmicort) 0.5 mg RTBID NEB Last administered on 03/26/16 09:37; Start 03/25/16 at 08:00 Furosemide (Lasix) 20 mg 1X ONCE IVP Last administered on 03/25/16 08:29; Start 03/25/16 at 08:15; Stop 03/25/16 at 08:16; Status DC Piperacillin Sod/ Tazobactam Sod (Zosyn Per Pharmacy) 1 each PRN DAILY PRN MC SEE COMMENTS; Start 03/25/16 at 09:00 Vancomycin HCl 1 each 1 each PRN DAILY PRN MC SEE COMMENTS Last administered on 03/26/16 10:28; Start 03/25/16 at 09:00 Sodium Chloride 1,000 ml @ 999 mls/hr 1X ONCE IV Last administered on 09:17; Start 03/25/16 at 09:15; Stop 03/25/16 at 10:15; Status DC Vancomycin HCl 1.75 gm/Sodium Chloride 500 ml @ 250 mls/hr 1X ONCE IV Last administered on 03/25/16 09:17; Start 03/25/16 at 09:30; Stop 03/25/16 at 11:29 ; Status DC Piperacillin Sod/ Tazobactam Sod 2.25 gm/Sodium Chloride 50 ml @ 100 mls/hr Q6HRS IV Last administered on 03/26/16 05:53; Start 03/25/16 at 09:30 Sodium Chloride 1,000 ml @ 125 mls/hr Q8H IV Last administered on 03/26/16 05 :53; Start 03/25/16 at 10:30 Vancomycin HCl/ Sodium Chloride (Iv Sodium Chloride 0.9% 250ml) 250 ml @ 167 mls/hr Q24H IV Last administered on 03/26/16 09:04; Start 03/26/16 at 09:00 Vancomycin HCl 1 each 1X ONCE MC ; Start 03/27/16 at 08:30; Stop 03/27/16 at 08 :31 Insulin Detemir (Levemir) 15 units QHS SQ Last administered on 03/25/16 21:28 ; Start 03/25/16 at 21:00 Morphine Sulfate 2 mg PRN Q2HR PRN IV PAIN Last administered on 03/26/16 09:04 ; Start 03/25/16 at 20:30 Albuterol/ Ipratropium (Duoneb) 3 ml RTQID NEB Last administered on 03/26/16 09:00; Start 03/26/16 at 09:00 Famotidine (Pepcid) 20 mg QHS PO ; Start 03/26/16 at 21:00 Active Scripts Active Reported [New Blood Sugar Med] PO BID [Lisinopril] Mg PO DAILY Allergies Allergies: Coded Allergies: No Known Drug Allergies (Unverified , 03/24/16) ROS General: YES: Appetite, Fatigue PSYCHOLOGICAL ROS: YES: Anxiety Eyes: Yes Decreased vision HEENT: YES: Heacaches Respiratory: YES: Cough, Shortness of breath Gastrointestinal: Yes Nausea, Yes Vomiting Genitourinary: YES Flank Pain Musculoskeletal: Yes Muscular Weakness Neurological: Yes Weakness Skin: Yes Dry Skin Physical Exam General: Alert, Oriented X3, Cooperative, No acute distress HEENT: Atraumatic, PERRLA Lungs: Clear to auscultation, Normal air movement Heart: Regular rate, Normal S1, Normal S2 Abdomen: Normal bowel sounds, Soft, No tenderness Extremities: No clubbing, No edema Neuro: Normal speech, Cranial nerves 3-12 NL Psych/Mental Status: Mental status NL, Mood NL MUSCULOSKELETAL: No deformity, No swelling Vitals VITALS Vital Signs Date Time Temp Pulse Resp B/P Pulse Ox O2 Delivery O2 Flow Rate FiO2 03/26/16 09:37 Room Air 03/26/16 09:34 92 2.0 03/26/16 09:00 97 11 169/90 03/26/16 08:00 98.3 98.3 Labs Labs Laboratory Tests Test 03/24/16 19:20 03/24/16 20:00 03/24/16 22:15 03/25/16 05:35 White Blood Count 9.4x10^3/uL (4.0-11.0) Red Blood Count 3.46x10^6/uL (3.50-5.40) Hemoglobin 10.0g/dL (12.0-15.5) Hematocrit 30.6% (36.0-47.0) Mean Corpuscular Volume 89fL (79-100) Mean Corpuscular Hemoglobin 29pg (25-35) Mean Corpuscular Hemoglobin Concent 33g/dL (31-37) Red Cell Distribution Width 13.5% (11.5-14.5) Platelet Count 312x10^3/uL (140-400) Neutrophils (%) (Auto) 87% (31-73) Lymphocytes (%) (Auto) 5% (24-48) Monocytes (%) (Auto) 3% (0-9) Eosinophils (%) (Auto) 4% (0-3) Basophils (%) (Auto) 1% (0-3) Neutrophils # (Auto) 8.2x10^3uL (1.8-7.7) Lymphocytes # (Auto) 0.5x10^3/uL (1.0-4.8) Monocytes # (Auto) 0.3x10^3/uL (0.0-1.1) Eosinophils # (Auto) 0.4x10^3/uL (0.0-0.7) Basophils # (Auto) 0.0x10^3/uL (0.0-0.2) Segmented Neutrophils % 60% (35-66) Band Neutrophils % 27% (0-9) Lymphocytes % 8% (24-48) Monocytes % 2% (0-10) Eosinophils % 3% (0-5) Toxic Granulation Slight Platelet Estimate Adequate (ADEQUATE) Sodium Level 133mmol/L (136-145) Potassium Level 3.8mmol/L (3.5-5.1) Chloride Level 99mmol/L (98-107) Carbon Dioxide Level 26mmol/L (21-32) Anion Gap 8 (6-14) Blood Urea Nitrogen 18mg/dL (7-20) Creatinine 1.3mg/dL (0.6-1.0) Estimated GFR (Cockcroft-Gault) 44.3 BUN/Creatinine Ratio 14 (6-20) Glucose Level 315mg/dL (70-99) Lactic Acid Level 0.8mmol/L (0.4-2.0) Calcium Level 8.7mg/dL (8.5-10.1) Total Bilirubin 0.4mg/dL (0.2-1.0) Aspartate Amino Transf (AST/SGOT) 15U/L (15-37) Alanine Aminotransferase (ALT/SGPT) 18U/L (14-59) Alkaline Phosphatase 97U/L (46-116) Total Protein 7.2g/dL (6.4-8.2) Albumin 2.6g/dL (3.4-5.0) Albumin/Globulin Ratio 0.6 (1.0-1.7) Lipase 247U/L (73-393) Urine Collection Type Unknown Urine Color Yellow Urine Clarity Cloudy Urine pH 5.5 Urine Specific [place] 1.020 Urine Protein 100mg/dL (NEG-TRACE) Urine Glucose (UA) >=1000mg/dL (NEG) Urine Ketones (Stick) Negativemg/dL (NEG) Urine Blood Moderate (NEG) Urine Nitrite Negative (NEG) Urine Bilirubin Negative (NEG) Urine Urobilinogen Dipstick 0.2mg/dL (0.2 mg/dL) Urine Leukocyte Esterase Small (NEG) Urine RBC 3-5/HPF (0-2) Urine WBC 11-20/HPF (0-4) Urine Squamous Epithelial Cells Few/LPF Urine Bacteria Many/HPF (0-FEW) Urine Test Negative (NEG) Glucose (Fingerstick) 340mg/dL (70-99) 211mg/dL (70-99) Test 03/25/16 06:35 03/25/16 06:55 03/25/16 08:30 03/25/16 08:45 White Blood Count 5.6x10^3/uL (4.0-11.0) Red Blood Count 3.64x10^6/uL (3.50-5.40) Hemoglobin 10.6g/dL (12.0-15.5) Hematocrit 31.8% (36.0-47.0) Mean Corpuscular Volume 88fL (79-100) Mean Corpuscular Hemoglobin 29pg (25-35) Mean Corpuscular Hemoglobin Concent 34g/dL (31-37) Red Cell Distribution Width 13.7% (11.5-14.5) Platelet Count 310x10^3/uL (140-400) Neutrophils (%) (Auto) 83% (31-73) Lymphocytes (%) (Auto) 10% (24-48) Monocytes (%) (Auto) 1% (0-9) Eosinophils (%) (Auto) 6% (0-3) Basophils (%) (Auto) 1% (0-3) Neutrophils # (Auto) 4.6x10^3uL (1.8-7.7) Lymphocytes # (Auto) 0.6x10^3/uL (1.0-4.8) Monocytes # (Auto) 0.0x10^3/uL (0.0-1.1) Eosinophils # (Auto) 0.3x10^3/uL (0.0-0.7) Basophils # (Auto) 0.1x10^3/uL (0.0-0.2) Sodium Level 138mmol/L (136-145) Potassium Level 4.1mmol/L (3.5-5.1) Chloride Level 102mmol/L (98-107) Carbon Dioxide Level 23mmol/L (21-32) Anion Gap 13 (6-14) Blood Urea Nitrogen 22mg/dL (7-20) Creatinine 1.7mg/dL (0.6-1.0) Estimated GFR (Cockcroft-Gault) 32.5 BUN/Creatinine Ratio 13 (6-20) Glucose Level 263mg/dL (70-99) Hemoglobin A1c 10.8% (4.8-5.6) Calcium Level 8.1mg/dL (8.5-10.1) Total Bilirubin 0.4mg/dL (0.2-1.0) Aspartate Amino Transf (AST/SGOT) 20U/L (15-37) Alanine Aminotransferase (ALT/SGPT) 19U/L (14-59) Alkaline Phosphatase 89U/L (46-116) Total Protein 7.2g/dL (6.4-8.2) Albumin 2.4g/dL (3.4-5.0) Albumin/Globulin Ratio 0.5 (1.0-1.7) Lactic Acid Level 2.2mmol/L (0.4-2.0) Nasal Screen MRSA (PCR) Negative (Negative) Glucose (Fingerstick) 271mg/dL (70-99) Test 03/25/16 10:00 03/25/16 10:55 03/25/16 11:30 03/25/16 16:39 Urine Collection Type Unknown Urine Color Yellow Urine Clarity Cloudy Urine pH 5.5 Urine Specific [place] 1.010 Urine Protein 100mg/dL (NEG-TRACE) Urine Glucose (UA) 100mg/dL (NEG) Urine Ketones (Stick) Negativemg/dL (NEG) Urine Blood Moderate (NEG) Urine Nitrite Negative (NEG) Urine Bilirubin Negative (NEG) Urine Urobilinogen Dipstick 0.2mg/dL (0.2 mg/dL) Urine Leukocyte Esterase Moderate (NEG) Urine RBC 6-10/HPF (0-2) Urine WBC 11-20/HPF (0-4) Urine Squamous Epithelial Cells Mod/LPF Urine Bacteria Moderate/HPF (0-FEW) Urine Hyaline Casts Occasional/HPF Urine Granular Casts Few/HPF Urine Mucus Slight/LPF Lactic Acid Level 2.0mmol/L (0.4-2.0) Glucose (Fingerstick) 188mg/dL (70-99) 179mg/dL (70-99) Test 03/25/16 20:35 03/26/16 08:08 Glucose (Fingerstick) 141mg/dL (70-99) 110mg/dL (70-99) Laboratory Tests Test 03/25/16 10:55 03/25/16 11:30 03/25/16 16:39 03/25/16 20:35 Lactic Acid Level 2.0mmol/L (0.4-2.0) Glucose (Fingerstick) 188mg/dL (70-99) 179mg/dL (70-99) 141mg/dL (70-99) Test 03/26/16 08:08 Glucose (Fingerstick) 110mg/dL (70-99) Assessment/Plan Assessment/Plan IMP DEHYDRATION DIDI-WITH CR OF 1.7 ASPIRATION PNEUMONIA RESP INSUFFICIENCY DM II PLAN HOLD HER CURTIS-I ANTIBIOTICS IVF'S WILL FOLLOW CROW CORTEZ MD Mar 26, 2016 10:41
[2016-03-26] MEDS: OXYCODONE/APAP 5/325 TABLET. PO PRN (19:40)
[2016-03-26] MEDS: INSULIN DETEMIR 300 UNITS/3 ML INSULN.PEN. SQ SCH (21:09)
[2016-03-27 02:36] VITALS: BP 156/103
[2016-03-27] MEDS: IV NORMAL SALINE 1000ML BAG 1,000 ML IV SCH ×2 (04:39→09:01)
[2016-03-27] MEDS: PIPERACILLIN/TAZOBACTAM 2.25 GM in IV NORMAL SALINE 50ML 50 ML IV SCH (05:32)
[2016-03-27] MEDS: MORPHINE SULFATE 2 MG/ML DISP.SYRIN. IV PRN ×3 (05:48→17:08)
[2016-03-27 07:00] VITALS: BP 164/105
[2016-03-27] MEDS: INSULIN ASPART 300 UNITS/3 ML INSULN.PEN SQ SCH ×4 (07:30→21:00)
[2016-03-27] MEDS: IPRATRPIUM/ALBUTEROL 0.5/2.5MG 3 ML NEBU. NEB SCH ×4 (07:35→20:30)
[2016-03-27] MEDS: BUDESONIDE 0.5 MG/2 ML NEBU NEB SCH ×2 (07:35→20:31)
--- NOTE | 2016-03-27 08:17 | PDOC ---
PULMONARY PROGRESS NOTES Subjective has sob, cough, sputum, nasal congestion , has abd pain better, no cp Vitals Vital Signs Date Time Temp Pulse Resp B/P Pulse Ox O2 Delivery O2 Flow Rate FiO2 03/27/16 07:40 100 Nasal Cannula 2.0 03/27/16 07:00 100.1 120 16 164/105 100.1 Comments ros as above other sys otherwise neg General: Alert HEENT: Other (nc, at perrl, throat nose clear) Lungs: Clear, Other Cardiovascular: S1, S2 Abdomen: Soft, Non-tender, Other (no mass) Neuro Exam: Alert Extremities: Other (no c/c) Skin: Warm Labs Laboratory Tests Test 03/25/16 08:30 03/25/16 08:45 03/25/16 10:00 03/25/16 10:55 Nasal Screen MRSA (PCR) Negative (Negative) Glucose (Fingerstick) 271mg/dL (70-99) Urine Collection Type Unknown Urine Color Yellow Urine Clarity Cloudy Urine pH 5.5 Urine Specific [place] 1.010 Urine Protein 100mg/dL (NEG-TRACE) Urine Glucose (UA) 100mg/dL (NEG) Urine Ketones (Stick) Negativemg/dL (NEG) Urine Blood Moderate (NEG) Urine Nitrite Negative (NEG) Urine Bilirubin Negative (NEG) Urine Urobilinogen Dipstick 0.2mg/dL (0.2 mg/dL) Urine Leukocyte Esterase Moderate (NEG) Urine RBC 6-10/HPF (0-2) Urine WBC 11-20/HPF (0-4) Urine Squamous Epithelial Cells Mod/LPF Urine Bacteria Moderate/HPF (0-FEW) Urine Hyaline Casts Occasional/HPF Urine Granular Casts Few/HPF Urine Mucus Slight/LPF Lactic Acid Level 2.0mmol/L (0.4-2.0) Test 03/25/16 11:30 03/25/16 16:39 03/25/16 20:35 03/26/16 08:08 Glucose (Fingerstick) 188mg/dL (70-99) 179mg/dL (70-99) 141mg/dL (70-99) 110mg/dL (70-99) Test 03/26/16 12:15 03/26/16 16:55 03/26/16 20:37 03/27/16 07:52 Glucose (Fingerstick) 103mg/dL (70-99) 152mg/dL (70-99) 158mg/dL (70-99) 96mg/dL (70-99) Laboratory Tests Test 03/26/16 12:15 03/26/16 16:55 03/26/16 20:37 03/27/16 07:52 Glucose (Fingerstick) 103mg/dL (70-99) 152mg/dL (70-99) 158mg/dL (70-99) 96mg/dL (70-99) Medications Active Scripts Medications Dose Route/Sig Days Date Category [New Blood Sugar Med] PO BID 03/24/16 Reported [Lisinopril] Mg PO DAILY 03/24/[address] of chest reviewed, 1. Right greater than left lower lobe predominant multifocal pneumonia. Follow-up to confirm resolution. 2. Right greater than left hilar lymphadenopathy, likely reactive given the forementioned finding. Follow-up to confirm resolution. Impression . IMPRESSION: 1. Acute hypoxic respiratory failure, most likely related to bilateral lower lobe aspiration pneumonia. The patient had emesis yesterday and this morning as well and CT chest confirmed extensive bilateral lower lobe infiltrates. In addition, she was receiving 4 mg of morphine and hypoventilation is also contributing to hypoxia. 2. No significant history of tobacco use. 3. Abnormal ultrasound of the liver with hyperechoic 2.6-cm lesion in the superior pole of the right lobe of the liver, possibly hemangioma. Radiology suggested CT or MRI and will leave up to primary care. 4. Clinically unlikely congestive heart failure. 5. Clinical presentation consistent with sepsis. 6. abnl cxr and ct of chest 7. allergic rhinitis Plan . RECOMMENDATIONS: 1. 02 titration 2. Zosyn and vancomycin 3. Consider infectious disease consult. 4. Bronchodilators qid, pulmicort 5. Follow chest x-ray in few days. 6. IV hydration to see an improvement in her blood pressure and heart rate. 7. Obtain echocardiogram, clinically unlikely CHF. 8. Discussed with with RN and pt. 9. pepcid 10. MISHA Wells MD Mar 27, 2016 08:17
[2016-03-27 08:52] LABS: HEMATOCRIT 25.1 % (36.0-47.0); HEMOGLOBIN 8.4 g/dL (12.0-15.5); RED BLOOD COUNT 2.88 x10^6/uL (3.50-5.40); RED CELL DISTRIBUTION WIDTH 13.9 % (11.5-14.5); WHITE BLOOD COUNT 8.8 x10^3/uL (4.0-11.0)
[2016-03-27] MEDS: VANCOMYCIN 1.25 GM in IV NORMAL SALINE 250ML 250 ML IV SCH ×2 (09:00→21:36)
[2016-03-27] MEDS: DOCUSATE SODIUM 100 MG CAPSULE PO SCH (09:01)
[2016-03-27 09:10] LABS: CALCIUM 7.5 mg/dL (8.5-10.1); CREATININE 1.1 mg/dL (0.6-1.0); GFR 53.7; POTASSIUM 3.9 mmol/L (3.5-5.1)
[2016-03-27] MEDS: VANCOMYCIN PER PHARMACY MC PRN (09:48)
[2016-03-27] MEDS ORDERED: VANCOMYCIN 1.5 GM in IV NORMAL SALINE 500ML BAG 500 ML IV ONE (10:00)
--- NOTE | 2016-03-27 10:55 | PDOC ---
G I PROGRESS NOTE Reason for Follow-up ABd pain/dyspnea Subjective Short of breath and nauseated Physical Exam Lungs decreased BS CV S1 S2 ABD +BS, soft, mild ruq/epigastric tenderness Review of Relevant I have reviewed the following items minnie (where applicable) has been applied. Labs Laboratory Tests Test 03/25/16 10:55 03/25/16 11:30 03/25/16 16:39 03/25/16 20:35 Lactic Acid Level 2.0mmol/L (0.4-2.0) Glucose (Fingerstick) 188mg/dL (70-99) 179mg/dL (70-99) 141mg/dL (70-99) Test 03/26/16 08:08 03/26/16 12:15 03/26/16 16:55 03/26/16 20:37 Glucose (Fingerstick) 110mg/dL (70-99) 103mg/dL (70-99) 152mg/dL (70-99) 158mg/dL (70-99) Test 03/27/16 07:52 03/27/16 08:34 Glucose (Fingerstick) 96mg/dL (70-99) White Blood Count 8.8x10^3/uL (4.0-11.0) Red Blood Count 2.88x10^6/uL (3.50-5.40) Hemoglobin 8.4g/dL (12.0-15.5) Hematocrit 25.1% (36.0-47.0) Mean Corpuscular Volume 87fL (79-100) Mean Corpuscular Hemoglobin 29pg (25-35) Mean Corpuscular Hemoglobin Concent 34g/dL (31-37) Red Cell Distribution Width 13.9% (11.5-14.5) Platelet Count 265x10^3/uL (140-400) Sodium Level 141mmol/L (136-145) Potassium Level 3.9mmol/L (3.5-5.1) Chloride Level 108mmol/L (98-107) Carbon Dioxide Level 22mmol/L (21-32) Anion Gap 11 (6-14) Blood Urea Nitrogen 9mg/dL (7-20) Creatinine 1.1mg/dL (0.6-1.0) Estimated GFR (Cockcroft-Gault) 53.7 Glucose Level 122mg/dL (70-99) Calcium Level 7.5mg/dL (8.5-10.1) Vancomycin Level Trough 10.4mcg/mL (10.0-20.0) Vancomycin Last Dose Date 03/26/16 Vancomycin Last Dose Time 0900 Laboratory Tests Test 03/26/16 12:15 03/26/16 16:55 03/26/16 20:37 03/27/16 07:52 Glucose (Fingerstick) 103mg/dL (70-99) 152mg/dL (70-99) 158mg/dL (70-99) 96mg/dL (70-99) Test 03/27/16 08:34 White Blood Count 8.8x10^3/uL (4.0-11.0) Red Blood Count 2.88x10^6/uL (3.50-5.40) Hemoglobin 8.4g/dL (12.0-15.5) Hematocrit 25.1% (36.0-47.0) Mean Corpuscular Volume 87fL (79-100) Mean Corpuscular Hemoglobin 29pg (25-35) Mean Corpuscular Hemoglobin Concent 34g/dL (31-37) Red Cell Distribution Width 13.9% (11.5-14.5) Platelet Count 265x10^3/uL (140-400) Sodium Level 141mmol/L (136-145) Potassium Level 3.9mmol/L (3.5-5.1) Chloride Level 108mmol/L (98-107) Carbon Dioxide Level 22mmol/L (21-32) Anion Gap 11 (6-14) Blood Urea Nitrogen 9mg/dL (7-20) Creatinine 1.1mg/dL (0.6-1.0) Estimated GFR (Cockcroft-Gault) 53.7 Glucose Level 122mg/dL (70-99) Calcium Level 7.5mg/dL (8.5-10.1) Vancomycin Level Trough 10.4mcg/mL (10.0-20.0) Vancomycin Last Dose Date 03/26/16 Vancomycin Last Dose Time 0900 Microbiology 03/24/16 Blood Culture - Preliminary, Resulted NO GROWTH AFTER 2 DAYS 03/25/16 Urine Culture - Preliminary, Resulted 03/25/16 Urine Culture Result 1 (ABA) - Preliminary, Resulted Medications Current Medications Sodium Chloride (Iv Sodium Chloride 0.9% 1000ml Bag) 1,000 ml @ 1,000 mls/hr 1X ONCE IV Last administered on 03/24/16 19:39; Start 03/24/16 at 19:30; Stop 03/24/16 at 20:29; Status DC Ondansetron HCl (Zofran) 4 mg 1X ONCE IV Last administered on 03/24/16 19:36 ; Start 03/24/16 at 19:30; Stop 03/24/16 at 19:31; Status DC Hydromorphone HCl (Dilaudid) 0.5 mg 1X ONCE IV Last administered on 03/24/16 19:36; Start 03/24/16 at 19:30; Stop 03/24/16 at 19:31; Status DC Acetaminophen (Tylenol) 1,000 mg 1X ONCE PO Last administered on 03/24/16 19: 36; Start 03/24/16 at 19:30; Stop 03/24/16 at 19:31; Status DC Ondansetron HCl (Zofran) 4 mg PRN Q8HRS PRN IV NAUSEA/VOMITING Last administered on 03/25/16 05:37; Start 03/24/16 at 21:45; Stop 03/25/16 at 21:44 ; Status DC Morphine Sulfate 4 mg 4 mg PRN Q2HR PRN IV PAIN Last administered on 03/25/16 05:43; Start 03/24/16 at 21:45; Stop 03/25/16 at 08:59; Status DC Sodium Chloride (Iv Sodium Chloride 0.9% 1000ml Bag) 1,000 ml @ 100 mls/hr Q10H IV Last administered on 03/25/16 16:45; Start 03/24/16 at 21:45; Stop 02/27 at 21:44; Status DC Acetaminophen 650 mg 650 mg PRN Q4HRS PRN PO FEVER Last administered on 17:10; Start 03/24/16 at 21:45; Stop 03/25/16 at 21:44; Status DC Ceftriaxone Sodium (Rocephin 1gm Ivpb For Omni) 50 ml @ 100 mls/hr 1X ONCE IV ; Start 03/24/16 at 21:45; Stop 03/25/16 at 08:59; Status DC Insulin Aspart (Novolog) 0-9 UNITS QIDACHS SQ Last administered on 03/26/16 17 :44; Start 03/25/16 at 07:30 Dextrose 12.5 gm 12.5 gm PRN Q15MIN PRN IV SEE COMMENTS; Start 03/24/16 at 22: 30 Ceftriaxone Sodium/Sodium Chloride (Rocephin/Iv Sodium Chloride 0.9% 50ml) 50 ml @ 100 mls/hr Q24H IV Last administered on 03/24/16 22:53; Start 03/24/16 at 22:30; Stop 03/25/16 at 08:59; Status DC Insulin Detemir (Levemir) 10 units QHS SQ Last administered on 03/24/16 23:07 ; Start 03/24/16 at 22:30; Stop 03/25/16 at 19:32; Status DC Famotidine (Pepcid) 20 mg BID PO Last administered on 03/26/16 09:03; Start at 22:45; Stop 03/26/16 at 10:32; Status DC Calcium Carbonate/ Glycine (Tums) 500 mg PRN AFTMEALHC PRN PO INDIGESTION; Start 03/24/16 at 22:45 Multi-Ingredient Mouthwash/Gargle (Gi Cocktail Single Dose) 15 ml 1X ONCE SWSW Last administered on 03/24/16 22:54; Start 03/24/16 at 22:45; Stop 03/24/16 at 22:46; Status DC Oxycodone/ Acetaminophen (Percocet 5/325) 1 tab PRN Q4HRS PRN PO moderate - severe pain Last administered on 03/26/16 19:40; Start 03/24/16 at 22:45 Docusate Sodium (Colace) 100 mg PRN DAILY PRN PO CONSTIPATION; Start 03/24/16 at 22:45 Docusate Sodium 100 mg 100 mg DAILY PO Last administered on 03/27/16 09:01; Start 03/25/16 at 09:00 Ceftriaxone Sodium/Sodium Chloride (Rocephin/Iv Sodium Chloride 0.9% 50ml) 50 ml @ 100 mls/hr ONCE ONCE IV ; Start 03/24/16 at 23:00; Stop 03/24/16 at 23:29 ; Status Cancel Info (Do NOT chart on this placeholder) 1 each 1X ONCE MC ; Start 03/25/16 at 09:00; Stop 03/25/16 at 09:01; Status UNV Pneumococcal Polyvalent Vaccine (Do NOT chart on this placeholder) 1 each 1X ONCE MC ; Start 03/25/16 at 09:00; Stop 03/25/16 at 09:01; Status UNV Influenza Virus Vaccine Quadrival (Fluarix Quad [id number] Syringe) 0.5 ml ONCE ONCE VAX IM ; Start 03/25/16 at 09:00; Stop 03/25/16 at 09:01; Status DC Pneumococcal Polyvalent Vaccine (Pneumovax 23) 0.5 ml ONCE ONCE VAX IM ; Start 03/25/16 at 09:00; Stop 03/25/16 at 09:01; Status DC Albuterol Sulfate (Ventolin Neb Soln) 2.5 mg PRN Q4HRS PRN NEB SHORTNESS OF BREATH Last administered on 03/25/16 06:53; Start 03/25/16 at 06:30 Acetaminophen (Tylenol) 650 mg PRN Q6HRS PRN PO MILD PAIN / TEMP; Start at 06:30 Acetaminophen (Tylenol) 650 mg 1X ONCE PO Last administered on 03/25/16 06:30 ; Start 03/25/16 at 06:30; Stop 03/25/16 at 06:32; Status DC Budesonide (Pulmicort) 0.5 mg RTBID NEB Last administered on 03/27/16 07:35; Start 03/25/16 at 08:00 Furosemide (Lasix) 20 mg 1X ONCE IVP Last administered on 03/25/16 08:29; Start 03/25/16 at 08:15; Stop 03/25/16 at 08:16; Status DC Piperacillin Sod/ Tazobactam Sod (Zosyn Per Pharmacy) 1 each PRN DAILY PRN MC SEE COMMENTS; Start 03/25/16 at 09:00 Vancomycin HCl 1 each 1 each PRN DAILY PRN MC SEE COMMENTS Last administered on 03/27/16 09:48; Start 03/25/16 at 09:00 Sodium Chloride 1,000 ml @ 999 mls/hr 1X ONCE IV Last administered on 09:17; Start 03/25/16 at 09:15; Stop 03/25/16 at 10:15; Status DC Vancomycin HCl 1.75 gm/Sodium Chloride 500 ml @ 250 mls/hr 1X ONCE IV Last administered on 03/25/16 09:17; Start 03/25/16 at 09:30; Stop 03/25/16 at 11:29 ; Status DC Piperacillin Sod/ Tazobactam Sod 2.25 gm/Sodium Chloride 50 ml @ 100 mls/hr Q6HRS IV Last administered on 03/27/16 05:32; Start 03/25/16 at 09:30; Stop at 09:43; Status DC Sodium Chloride 1,000 ml @ 125 mls/hr Q8H IV Last administered on 03/27/16 04 :39; Start 03/25/16 at 10:30 Vancomycin HCl/ Sodium Chloride (Iv Sodium Chloride 0.9% 250ml) 250 ml @ 167 mls/hr Q24H IV Last administered on 03/26/16 09:04; Start 03/26/16 at 09:00; Stop 03/27/16 at 09:40; Status DC Vancomycin HCl 1 each 1X ONCE MC Last administered on 03/27/16 08:30; Start 03/27/16 at 08:30; Stop 03/27/16 at 08:31; Status DC Insulin Detemir (Levemir) 15 units QHS SQ Last administered on 03/26/16 21:09 ; Start 03/25/16 at 21:00 Morphine Sulfate 2 mg PRN Q2HR PRN IV PAIN Last administered on 03/27/16 05:48 ; Start 03/25/16 at 20:30 Albuterol/ Ipratropium (Duoneb) 3 ml RTQID NEB Last administered on 03/27/16 07:35; Start 03/26/16 at 09:00 Famotidine (Pepcid) 20 mg QHS PO Last administered on 03/26/16 19:40; Start at 21:00 Montelukast Sodium 10 mg 10 mg QHS PO ; Start 03/27/16 at 21:00 Vancomycin HCl 1.5 gm/Sodium Chloride 500 ml @ 250 mls/hr 1X ONCE IV Last administered on 1/14/17at 10:15; Start 03/27/16 at 10:00; Stop 03/27/16 at 11:59 Vancomycin HCl/ Sodium Chloride (Iv Sodium Chloride 0.9% 250ml) 250 ml @ 167 mls/hr Q12H IV ; Start 03/27/16 at 22:00 Vancomycin HCl 1 each 1 each 1X ONCE MC ; Start 03/28/16 at 21:30; Stop at 21:31 Piperacillin Sod/ Tazobactam Sod/ Sodium Chloride (Zosyn/Iv Sodium Chloride 0.9 % 50ml) 50 ml @ 100 mls/hr Q6HRS IV ; Start 03/27/16 at 12:00 Active Scripts Active Reported [New Blood Sugar Med] PO BID [Lisinopril] Mg PO DAILY Vitals/I & O Vital Sign - Last 24 Hours 03/26/16 03/26/16 03/26/16 03/26/16 11:47 12:00 15:39 16:00 Temp 98.4 98.4 Pulse 117 128 Resp 19 19 B/P 169/91 168/83 Pulse Ox 95 99 95 O2 Delivery Room Air Room Air Room Air Room Air 03/26/16 03/26/16 03/26/16 03/26/16 16:35 17:00 19:00 19:40 Temp 99.2 98.5 99.2 98.5 Pulse 126 118 Resp 16 17 20 18 B/P 151/97 162/108 Pulse Ox 91 94 O2 Delivery Room Air Room Air Room Air Room Air 03/26/16 03/26/16 03/26/16 03/26/16 19:59 20:00 20:28 21:09 Resp 18 18 Pulse Ox 99 O2 Delivery Room Air Room Air Room Air Room Air 03/26/16 03/27/16 03/27/16 03/27/16 23:00 02:36 05:48 06:29 Temp 98.1 98.8 98.1 98.8 Pulse 116 113 Resp 20 20 23 18 B/P 138/91 156/103 Pulse Ox 93 98 O2 Delivery Room Air Nasal Cannula Nasal Cannula Nasal Cannula O2 Flow Rate 2.0 2.0 2.0 03/27/16 03/27/16 03/27/16 07:00 07:35 07:40 Temp 100.1 100.1 Pulse 120 Resp 16 B/P 164/105 Pulse Ox 99 100 100 O2 Delivery Room Air Nasal Cannula Nasal Cannula O2 Flow Rate 2.0 2.0 Intake and Output 03/26/16 03/26/16 03/27/16 15:00 23:00 07:00 Intake Total 3977 ml 1340 ml Output Total 1650 ml Balance 2327 ml 1340 ml Problem List Problems Medical Problems: (1) Abdominal pain Status: Acute (2) Atrophic kidney Status: Acute (3) Flank pain Status: Acute (4) Liver lesion Status: Acute Assessment Abd pain- with long standing DM and pneumonia, most likely secondary to aspiration and gastroparesis Plan medical therapy GES once pulmonary status improved J CARLOS ÁLVAREZ MD Mar 27, 2016 10:55
[2016-03-27 11:00] VITALS: BP 163/107
[2016-03-27] MEDS: OXYCODONE/APAP 5/325 TABLET. PO PRN ×2 (11:20→17:08)
--- NOTE | 2016-03-27 11:20 | PDOC ---
PROGRESS NOTES Chief Complaint Chief Complaint CC: abd and flank pain sepsis, PNA, UTI -E. COLI, resistant to Zosy, change to Levaquin Hyperglycemia, Dm2, poor control HBAC>10 RUQ PAIN, vasomotor nephropathy PLAN IV Levaquin AND VANCOMYCIN RENAL CONSULT NOTED, cont fluids,. much better SSI WITH Levemir Htn from poor pain control, cont PO and IV NARCOTIC History of Present Illness History of Present Illness ABDOMINAL PAIN persists tachycardia, tachypnea IV fluid Vitals Vitals Vital Signs Date Time Temp Pulse Resp B/P Pulse Ox O2 Delivery O2 Flow Rate FiO2 03/27/16 07:40 100 Nasal Cannula 2.0 03/27/16 07:00 100.1 120 16 164/105 100.1 Physical Exam General: Alert, Oriented X3, Cooperative, Other Heart: Regular rate, Normal S1, Normal S2 Lungs: Clear, Other Abdomen: Soft (tender epigastrum, no rebound, some guarding), No masses, Other (TENDER RUQ) Extremities: No clubbing, No edema Labs LABS Laboratory Tests Test 03/26/16 12:15 03/26/16 16:55 03/26/16 20:37 03/27/16 07:52 Glucose (Fingerstick) 103mg/dL (70-99) 152mg/dL (70-99) 158mg/dL (70-99) 96mg/dL (70-99) Test 03/27/16 08:34 White Blood Count 8.8x10^3/uL (4.0-11.0) Red Blood Count 2.88x10^6/uL (3.50-5.40) Hemoglobin 8.4g/dL (12.0-15.5) Hematocrit 25.1% (36.0-47.0) Mean Corpuscular Volume 87fL (79-100) Mean Corpuscular Hemoglobin 29pg (25-35) Mean Corpuscular Hemoglobin Concent 34g/dL (31-37) Red Cell Distribution Width 13.9% (11.5-14.5) Platelet Count 265x10^3/uL (140-400) Sodium Level 141mmol/L (136-145) Potassium Level 3.9mmol/L (3.5-5.1) Chloride Level 108mmol/L (98-107) Carbon Dioxide Level 22mmol/L (21-32) Anion Gap 11 (6-14) Blood Urea Nitrogen 9mg/dL (7-20) Creatinine 1.1mg/dL (0.6-1.0) Estimated GFR (Cockcroft-Gault) 53.7 Glucose Level 122mg/dL (70-99) Calcium Level 7.5mg/dL (8.5-10.1) Vancomycin Level Trough 10.4mcg/mL (10.0-20.0) Vancomycin Last Dose Date 03/26/16 Vancomycin Last Dose Time 0900 Assessment and Plan Assessmemt and Plan URINE CULTURE RES 1 Final Escherichia coli Greater than 100,000 colony forming units per mL ANTIMICROBIAL SUSCEPTIBILITY Final Comment S = Susceptible; I = Intermediate; R = Resistant P = Positive; N = Negative MICS are expressed in micrograms per mL Antibiotic RSLT#1 RSLT#2 RSLT#3 RSLT#4 Amoxicillin/Clavulanic Acid I Ampicillin R Cefazolin S Cefepime S Ceftriaxone S Cefuroxime S Cephalothin I Ciprofloxacin S Ertapenem S Gentamicin S Imipenem S Levofloxacin S Nitrofurantoin S Piperacillin R Tetracycline R Tobramycin S Trimethoprim/Sulfa S Problems Medical Problems: (1) Abdominal pain Status: Acute (2) Atrophic kidney Status: Acute (3) Flank pain Status: Acute (4) Liver lesion Status: Acute Problems: Comment Review of Relevant I have reviewed the following items minnie (where applicable) has been applied. Labs Laboratory Tests Test 03/25/16 11:30 03/25/16 16:39 03/25/16 20:35 03/26/16 08:08 Glucose (Fingerstick) 188mg/dL (70-99) 179mg/dL (70-99) 141mg/dL (70-99) 110mg/dL (70-99) Test 03/26/16 12:15 03/26/16 16:55 03/26/16 20:37 03/27/16 07:52 Glucose (Fingerstick) 103mg/dL (70-99) 152mg/dL (70-99) 158mg/dL (70-99) 96mg/dL (70-99) Test 03/27/16 08:34 White Blood Count 8.8x10^3/uL (4.0-11.0) Red Blood Count 2.88x10^6/uL (3.50-5.40) Hemoglobin 8.4g/dL (12.0-15.5) Hematocrit 25.1% (36.0-47.0) Mean Corpuscular Volume 87fL (79-100) Mean Corpuscular Hemoglobin 29pg (25-35) Mean Corpuscular Hemoglobin Concent 34g/dL (31-37) Red Cell Distribution Width 13.9% (11.5-14.5) Platelet Count 265x10^3/uL (140-400) Sodium Level 141mmol/L (136-145) Potassium Level 3.9mmol/L (3.5-5.1) Chloride Level 108mmol/L (98-107) Carbon Dioxide Level 22mmol/L (21-32) Anion Gap 11 (6-14) Blood Urea Nitrogen 9mg/dL (7-20) Creatinine 1.1mg/dL (0.6-1.0) Estimated GFR (Cockcroft-Gault) 53.7 Glucose Level 122mg/dL (70-99) Calcium Level 7.5mg/dL (8.5-10.1) Vancomycin Level Trough 10.4mcg/mL (10.0-20.0) Vancomycin Last Dose Date 03/26/16 Vancomycin Last Dose Time 0900 Laboratory Tests Test 03/26/16 12:15 03/26/16 16:55 03/26/16 20:37 03/27/16 07:52 Glucose (Fingerstick) 103mg/dL (70-99) 152mg/dL (70-99) 158mg/dL (70-99) 96mg/dL (70-99) Test 03/27/16 08:34 White Blood Count 8.8x10^3/uL (4.0-11.0) Red Blood Count 2.88x10^6/uL (3.50-5.40) Hemoglobin 8.4g/dL (12.0-15.5) Hematocrit 25.1% (36.0-47.0) Mean Corpuscular Volume 87fL (79-100) Mean Corpuscular Hemoglobin 29pg (25-35) Mean Corpuscular Hemoglobin Concent 34g/dL (31-37) Red Cell Distribution Width 13.9% (11.5-14.5) Platelet Count 265x10^3/uL (140-400) Sodium Level 141mmol/L (136-145) Potassium Level 3.9mmol/L (3.5-5.1) Chloride Level 108mmol/L (98-107) Carbon Dioxide Level 22mmol/L (21-32) Anion Gap 11 (6-14) Blood Urea Nitrogen 9mg/dL (7-20) Creatinine 1.1mg/dL (0.6-1.0) Estimated GFR (Cockcroft-Gault) 53.7 Glucose Level 122mg/dL (70-99) Calcium Level 7.5mg/dL (8.5-10.1) Vancomycin Level Trough 10.4mcg/mL (10.0-20.0) Vancomycin Last Dose Date 03/26/16 Vancomycin Last Dose Time 0900 Microbiology 03/24/16 Blood Culture - Preliminary, Resulted NO GROWTH AFTER 2 DAYS 03/25/16 Urine Culture - Preliminary, Resulted 03/25/16 Urine Culture Result 1 (ABA) - Preliminary, Resulted Medications Current Medications Sodium Chloride (Iv Sodium Chloride 0.9% 1000ml Bag) 1,000 ml @ 1,000 mls/hr 1X ONCE IV Last administered on 03/24/16 19:39; Start 03/24/16 at 19:30; Stop 03/24/16 at 20:29; Status DC Ondansetron HCl (Zofran) 4 mg 1X ONCE IV Last administered on 03/24/16 19:36 ; Start 03/24/16 at 19:30; Stop 03/24/16 at 19:31; Status DC Hydromorphone HCl (Dilaudid) 0.5 mg 1X ONCE IV Last administered on 03/24/16 19:36; Start 03/24/16 at 19:30; Stop 03/24/16 at 19:31; Status DC Acetaminophen (Tylenol) 1,000 mg 1X ONCE PO Last administered on 03/24/16 19: 36; Start 03/24/16 at 19:30; Stop 03/24/16 at 19:31; Status DC Ondansetron HCl (Zofran) 4 mg PRN Q8HRS PRN IV NAUSEA/VOMITING Last administered on 03/25/16 05:37; Start 03/24/16 at 21:45; Stop 03/25/16 at 21:44 ; Status DC Morphine Sulfate 4 mg 4 mg PRN Q2HR PRN IV PAIN Last administered on 03/25/16 05:43; Start 03/24/16 at 21:45; Stop 03/25/16 at 08:59; Status DC Sodium Chloride (Iv Sodium Chloride 0.9% 1000ml Bag) 1,000 ml @ 100 mls/hr Q10H IV Last administered on 03/25/16 16:45; Start 03/24/16 at 21:45; Stop 02/27 at 21:44; Status DC Acetaminophen 650 mg 650 mg PRN Q4HRS PRN PO FEVER Last administered on 17:10; Start 03/24/16 at 21:45; Stop 03/25/16 at 21:44; Status DC Ceftriaxone Sodium (Rocephin 1gm Ivpb For Omni) 50 ml @ 100 mls/hr 1X ONCE IV ; Start 03/24/16 at 21:45; Stop 03/25/16 at 08:59; Status DC Insulin Aspart (Novolog) 0-9 UNITS QIDACHS SQ Last administered on 03/26/16 17 :44; Start 03/25/16 at 07:30 Dextrose 12.5 gm 12.5 gm PRN Q15MIN PRN IV SEE COMMENTS; Start 03/24/16 at 22: 30 Ceftriaxone Sodium/Sodium Chloride (Rocephin/Iv Sodium Chloride 0.9% 50ml) 50 ml @ 100 mls/hr Q24H IV Last administered on 03/24/16 22:53; Start 03/24/16 at 22:30; Stop 03/25/16 at 08:59; Status DC Insulin Detemir (Levemir) 10 units QHS SQ Last administered on 03/24/16 23:07 ; Start 03/24/16 at 22:30; Stop 03/25/16 at 19:32; Status DC Famotidine (Pepcid) 20 mg BID PO Last administered on 03/26/16 09:03; Start at 22:45; Stop 03/26/16 at 10:32; Status DC Calcium Carbonate/ Glycine (Tums) 500 mg PRN AFTMEALHC PRN PO INDIGESTION; Start 03/24/16 at 22:45 Multi-Ingredient Mouthwash/Gargle (Gi Cocktail Single Dose) 15 ml 1X ONCE SWSW Last administered on 03/24/16 22:54; Start 03/24/16 at 22:45; Stop 03/24/16 at 22:46; Status DC Oxycodone/ Acetaminophen (Percocet 5/325) 1 tab PRN Q4HRS PRN PO moderate - severe pain Last administered on 03/26/16 19:40; Start 03/24/16 at 22:45 Docusate Sodium (Colace) 100 mg PRN DAILY PRN PO CONSTIPATION; Start 03/24/16 at 22:45 Docusate Sodium 100 mg 100 mg DAILY PO Last administered on 03/27/16 09:01; Start 03/25/16 at 09:00 Ceftriaxone Sodium/Sodium Chloride (Rocephin/Iv Sodium Chloride 0.9% 50ml) 50 ml @ 100 mls/hr ONCE ONCE IV ; Start 03/24/16 at 23:00; Stop 03/24/16 at 23:29 ; Status Cancel Info (Do NOT chart on this placeholder) 1 each 1X ONCE MC ; Start 03/25/16 at 09:00; Stop 03/25/16 at 09:01; Status UNV Pneumococcal Polyvalent Vaccine (Do NOT chart on this placeholder) 1 each 1X ONCE MC ; Start 03/25/16 at 09:00; Stop 03/25/16 at 09:01; Status UNV Influenza Virus Vaccine Quadrival (Fluarix Quad [id number] Syringe) 0.5 ml ONCE ONCE VAX IM ; Start 03/25/16 at 09:00; Stop 03/25/16 at 09:01; Status DC Pneumococcal Polyvalent Vaccine (Pneumovax 23) 0.5 ml ONCE ONCE VAX IM ; Start 03/25/16 at 09:00; Stop 03/25/16 at 09:01; Status DC Albuterol Sulfate (Ventolin Neb Soln) 2.5 mg PRN Q4HRS PRN NEB SHORTNESS OF BREATH Last administered on 03/25/16 06:53; Start 03/25/16 at 06:30 Acetaminophen (Tylenol) 650 mg PRN Q6HRS PRN PO MILD PAIN / TEMP; Start at 06:30 Acetaminophen (Tylenol) 650 mg 1X ONCE PO Last administered on 03/25/16 06:30 ; Start 03/25/16 at 06:30; Stop 03/25/16 at 06:32; Status DC Budesonide (Pulmicort) 0.5 mg RTBID NEB Last administered on 03/27/16 07:35; Start 03/25/16 at 08:00 Furosemide (Lasix) 20 mg 1X ONCE IVP Last administered on 03/25/16 08:29; Start 03/25/16 at 08:15; Stop 03/25/16 at 08:16; Status DC Piperacillin Sod/ Tazobactam Sod (Zosyn Per Pharmacy) 1 each PRN DAILY PRN MC SEE COMMENTS; Start 03/25/16 at 09:00 Vancomycin HCl 1 each 1 each PRN DAILY PRN MC SEE COMMENTS Last administered on 03/27/16 09:48; Start 03/25/16 at 09:00 Sodium Chloride 1,000 ml @ 999 mls/hr 1X ONCE IV Last administered on 09:17; Start 03/25/16 at 09:15; Stop 03/25/16 at 10:15; Status DC Vancomycin HCl 1.75 gm/Sodium Chloride 500 ml @ 250 mls/hr 1X ONCE IV Last administered on 03/25/16 09:17; Start 03/25/16 at 09:30; Stop 03/25/16 at 11:29 ; Status DC Piperacillin Sod/ Tazobactam Sod 2.25 gm/Sodium Chloride 50 ml @ 100 mls/hr Q6HRS IV Last administered on 03/27/16 05:32; Start 03/25/16 at 09:30; Stop at 09:43; Status DC Sodium Chloride 1,000 ml @ 125 mls/hr Q8H IV Last administered on 03/27/16 04 :39; Start 03/25/16 at 10:30 Vancomycin HCl/ Sodium Chloride (Iv Sodium Chloride 0.9% 250ml) 250 ml @ 167 mls/hr Q24H IV Last administered on 03/26/16 09:04; Start 03/26/16 at 09:00; Stop 03/27/16 at 09:40; Status DC Vancomycin HCl 1 each 1X ONCE MC Last administered on 03/27/16 08:30; Start 03/27/16 at 08:30; Stop 03/27/16 at 08:31; Status DC Insulin Detemir (Levemir) 15 units QHS SQ Last administered on 03/26/16 21:09 ; Start 03/25/16 at 21:00 Morphine Sulfate 2 mg PRN Q2HR PRN IV PAIN Last administered on 03/27/16 05:48 ; Start 03/25/16 at 20:30; Stop 03/27/16 at 11:14; Status DC Albuterol/ Ipratropium (Duoneb) 3 ml RTQID NEB Last administered on 03/27/16 07:35; Start 03/26/16 at 09:00 Famotidine (Pepcid) 20 mg QHS PO Last administered on 03/26/16 19:40; Start at 21:00 Montelukast Sodium 10 mg 10 mg QHS PO ; Start 03/27/16 at 21:00 Vancomycin HCl 1.5 gm/Sodium Chloride 500 ml @ 250 mls/hr 1X ONCE IV Last administered on 03/27/16 10:15; Start 03/27/16 at 10:00; Stop 03/27/16 at 11:59 Vancomycin HCl/ Sodium Chloride (Iv Sodium Chloride 0.9% 250ml) 250 ml @ 167 mls/hr Q12H IV ; Start 03/27/16 at 22:00 Vancomycin HCl 1 each 1 each 1X ONCE MC ; Start 03/28/16 at 21:30; Stop at 21:31 Piperacillin Sod/ Tazobactam Sod 3.375 gm/Sodium Chloride 50 ml @ 100 mls/hr Q6HRS IV ; Start 03/27/16 at 12:00; Stop 03/27/16 at 12:00; Status DC Levofloxacin/ Dextrose (LEVAQUIN 750mg PREMIX) 150 ml @ 100 mls/hr Q24H IV ; Start 03/27/16 at 12:00 Morphine Sulfate 4 mg PRN Q2HR PRN IV PAIN; Start 03/27/16 at 11:15 Morphine Sulfate (Ms Contin) 15 mg 1X ONCE PO ; Start 03/27/16 at 11:30; Stop 03/27/16 at 11:31 Active Scripts Active Reported [New Blood Sugar Med] PO BID [Lisinopril] Mg PO DAILY Vitals/I & O Vital Sign - Last 24 Hours 03/26/16 03/26/16 03/26/16 03/26/16 11:47 12:00 15:39 16:00 Temp 98.4 98.4 Pulse 117 128 Resp 19 19 B/P 169/91 168/83 Pulse Ox 95 99 95 O2 Delivery Room Air Room Air Room Air Room Air 03/26/16 03/26/16 03/26/16 03/26/16 16:35 17:00 19:00 19:40 Temp 99.2 98.5 99.2 98.5 Pulse 126 118 Resp 16 17 20 18 B/P 151/97 162/108 Pulse Ox 91 94 O2 Delivery Room Air Room Air Room Air Room Air 03/26/16 03/26/16 03/26/16 03/26/16 19:59 20:00 20:28 21:09 Resp 18 18 Pulse Ox 99 O2 Delivery Room Air Room Air Room Air Room Air 03/26/16 03/27/16 03/27/16 03/27/16 23:00 02:36 05:48 06:29 Temp 98.1 98.8 98.1 98.8 Pulse 116 113 Resp 20 20 23 18 B/P 138/91 156/103 Pulse Ox 93 98 O2 Delivery Room Air Nasal Cannula Nasal Cannula Nasal Cannula O2 Flow Rate 2.0 2.0 2.0 03/27/16 03/27/16 03/27/16 07:00 07:35 07:40 Temp 100.1 100.1 Pulse 120 Resp 16 B/P 164/105 Pulse Ox 99 100 100 O2 Delivery Room Air Nasal Cannula Nasal Cannula O2 Flow Rate 2.0 2.0 Intake and Output 03/26/16 03/26/16 03/27/16 15:00 23:00 07:00 Intake Total 3977 ml 1340 ml Output Total 1650 ml Balance 2327 ml 1340 ml GUMARO RODRIGUEZ MD Mar 27, 2016 11:20
[2016-03-27] MEDS ORDERED: MORPHINE ER 15 MG TABLET.ER PO ONE (11:30)
[2016-03-27] MEDS ORDERED: PIPERACILLIN/TAZOBACTAM 3.375 GM in IV NORMAL SALINE 50ML 50 ML IV SCH (12:00)
--- NOTE | 2016-03-27 14:03 | PDOC ---
PROGRESS NOTES Subjective Subjective Unable to see pt due to weather situation: Creat back to baseline; F/up as OP prn - call with Qs Renal US IMPRESSION: 1. Decreased right renal size with cortical thinning likely due to atrophy. There is also a suspected 1.1 cm right renal cyst. 2. Nonspecific trace fluid within Morison's pouch and the dependent portions of the pelvis. 3. Pimentel catheter within the bladder. Objective Objective Vital Signs Date Time Temp Pulse Resp B/P Pulse Ox O2 Delivery O2 Flow Rate FiO2 03/27/16 11:25 Nasal Cannula 2.0 03/27/16 11:00 98.8 117 17 163/107 92 98.8 Intake and Output 03/27/16 07:00 Intake Total 5317 ml Output Total 1650 ml Balance 3667 ml Intake Oral 1240 ml IV Total 2977 ml Other 1100 ml Output Urine Total 1650 ml # Voids 3 Assessment Assessment Problems Medical Problems: (1) Abdominal pain Status: Acute (2) Atrophic kidney Status: Acute (3) Flank pain Status: Acute (4) Liver lesion Status: Acute Comment Review of Relevant I have reviewed the following items minnie (where applicable) has been applied. Labs Laboratory Tests Test 03/25/16 16:39 03/25/16 20:35 03/26/16 08:08 03/26/16 12:15 Glucose (Fingerstick) 179mg/dL (70-99) 141mg/dL (70-99) 110mg/dL (70-99) 103mg/dL (70-99) Test 03/26/16 16:55 03/26/16 20:37 03/27/16 07:52 03/27/16 08:34 Glucose (Fingerstick) 152mg/dL (70-99) 158mg/dL (70-99) 96mg/dL (70-99) White Blood Count 8.8x10^3/uL (4.0-11.0) Red Blood Count 2.88x10^6/uL (3.50-5.40) Hemoglobin 8.4g/dL (12.0-15.5) Hematocrit 25.1% (36.0-47.0) Mean Corpuscular Volume 87fL (79-100) Mean Corpuscular Hemoglobin 29pg (25-35) Mean Corpuscular Hemoglobin Concent 34g/dL (31-37) Red Cell Distribution Width 13.9% (11.5-14.5) Platelet Count 265x10^3/uL (140-400) Sodium Level 141mmol/L (136-145) Potassium Level 3.9mmol/L (3.5-5.1) Chloride Level 108mmol/L (98-107) Carbon Dioxide Level 22mmol/L (21-32) Anion Gap 11 (6-14) Blood Urea Nitrogen 9mg/dL (7-20) Creatinine 1.1mg/dL (0.6-1.0) Estimated GFR (Cockcroft-Gault) 53.7 Glucose Level 122mg/dL (70-99) Calcium Level 7.5mg/dL (8.5-10.1) Vancomycin Level Trough 10.4mcg/mL (10.0-20.0) Vancomycin Last Dose Date 03/26/16 Vancomycin Last Dose Time 0900 Laboratory Tests Test 03/26/16 16:55 03/26/16 20:37 03/27/16 07:52 03/27/16 08:34 Glucose (Fingerstick) 152mg/dL (70-99) 158mg/dL (70-99) 96mg/dL (70-99) White Blood Count 8.8x10^3/uL (4.0-11.0) Red Blood Count 2.88x10^6/uL (3.50-5.40) Hemoglobin 8.4g/dL (12.0-15.5) Hematocrit 25.1% (36.0-47.0) Mean Corpuscular Volume 87fL (79-100) Mean Corpuscular Hemoglobin 29pg (25-35) Mean Corpuscular Hemoglobin Concent 34g/dL (31-37) Red Cell Distribution Width 13.9% (11.5-14.5) Platelet Count 265x10^3/uL (140-400) Sodium Level 141mmol/L (136-145) Potassium Level 3.9mmol/L (3.5-5.1) Chloride Level 108mmol/L (98-107) Carbon Dioxide Level 22mmol/L (21-32) Anion Gap 11 (6-14) Blood Urea Nitrogen 9mg/dL (7-20) Creatinine 1.1mg/dL (0.6-1.0) Estimated GFR (Cockcroft-Gault) 53.7 Glucose Level 122mg/dL (70-99) Calcium Level 7.5mg/dL (8.5-10.1) Vancomycin Level Trough 10.4mcg/mL (10.0-20.0) Vancomycin Last Dose Date 03/26/16 Vancomycin Last Dose Time 0900 Microbiology 03/24/16 Blood Culture - Preliminary, Resulted NO GROWTH AFTER 2 DAYS 03/25/16 Urine Culture - Preliminary, Resulted 03/25/16 Urine Culture Result 1 (ABA) - Preliminary, Resulted Medications Current Medications Sodium Chloride (Iv Sodium Chloride 0.9% 1000ml Bag) 1,000 ml @ 1,000 mls/hr 1X ONCE IV Last administered on 03/24/16 19:39; Start 03/24/16 at 19:30; Stop 03/24/16 at 20:29; Status DC Ondansetron HCl (Zofran) 4 mg 1X ONCE IV Last administered on 03/24/16 19:36 ; Start 03/24/16 at 19:30; Stop 03/24/16 at 19:31; Status DC Hydromorphone HCl (Dilaudid) 0.5 mg 1X ONCE IV Last administered on 03/24/16 19:36; Start 03/24/16 at 19:30; Stop 03/24/16 at 19:31; Status DC Acetaminophen (Tylenol) 1,000 mg 1X ONCE PO Last administered on 03/24/16 19: 36; Start 03/24/16 at 19:30; Stop 03/24/16 at 19:31; Status DC Ondansetron HCl (Zofran) 4 mg PRN Q8HRS PRN IV NAUSEA/VOMITING Last administered on 03/25/16 05:37; Start 03/24/16 at 21:45; Stop 03/25/16 at 21:44 ; Status DC Morphine Sulfate 4 mg 4 mg PRN Q2HR PRN IV PAIN Last administered on 03/25/16 05:43; Start 03/24/16 at 21:45; Stop 03/25/16 at 08:59; Status DC Sodium Chloride (Iv Sodium Chloride 0.9% 1000ml Bag) 1,000 ml @ 100 mls/hr Q10H IV Last administered on 03/25/16 16:45; Start 03/24/16 at 21:45; Stop 02/27 at 21:44; Status DC Acetaminophen 650 mg 650 mg PRN Q4HRS PRN PO FEVER Last administered on 17:10; Start 03/24/16 at 21:45; Stop 03/25/16 at 21:44; Status DC Ceftriaxone Sodium (Rocephin 1gm Ivpb For Omni) 50 ml @ 100 mls/hr 1X ONCE IV ; Start 03/24/16 at 21:45; Stop 03/25/16 at 08:59; Status DC Insulin Aspart (Novolog) 0-9 UNITS QIDACHS SQ Last administered on 03/26/16 17 :44; Start 03/25/16 at 07:30 Dextrose 12.5 gm 12.5 gm PRN Q15MIN PRN IV SEE COMMENTS; Start 03/24/16 at 22: 30 Ceftriaxone Sodium/Sodium Chloride (Rocephin/Iv Sodium Chloride 0.9% 50ml) 50 ml @ 100 mls/hr Q24H IV Last administered on 03/24/16 22:53; Start 03/24/16 at 22:30; Stop 03/25/16 at 08:59; Status DC Insulin Detemir (Levemir) 10 units QHS SQ Last administered on 03/24/16 23:07 ; Start 03/24/16 at 22:30; Stop 03/25/16 at 19:32; Status DC Famotidine (Pepcid) 20 mg BID PO Last administered on 03/26/16 09:03; Start at 22:45; Stop 03/26/16 at 10:32; Status DC Calcium Carbonate/ Glycine (Tums) 500 mg PRN AFTMEALHC PRN PO INDIGESTION; Start 03/24/16 at 22:45 Multi-Ingredient Mouthwash/Gargle (Gi Cocktail Single Dose) 15 ml 1X ONCE SWSW Last administered on 03/24/16 22:54; Start 03/24/16 at 22:45; Stop 03/24/16 at 22:46; Status DC Oxycodone/ Acetaminophen (Percocet 5/325) 1 tab PRN Q4HRS PRN PO moderate - severe pain Last administered on 1/14/17at 11:20; Start 03/24/16 at 22:45 Docusate Sodium (Colace) 100 mg PRN DAILY PRN PO CONSTIPATION; Start 03/24/16 at 22:45 Docusate Sodium 100 mg 100 mg DAILY PO Last administered on 03/27/16 09:01; Start 03/25/16 at 09:00 Ceftriaxone Sodium/Sodium Chloride (Rocephin/Iv Sodium Chloride 0.9% 50ml) 50 ml @ 100 mls/hr ONCE ONCE IV ; Start 03/24/16 at 23:00; Stop 03/24/16 at 23:29 ; Status Cancel Info (Do NOT chart on this placeholder) 1 each 1X ONCE MC ; Start 03/25/16 at 09:00; Stop 03/25/16 at 09:01; Status UNV Pneumococcal Polyvalent Vaccine (Do NOT chart on this placeholder) 1 each 1X ONCE MC ; Start 03/25/16 at 09:00; Stop 03/25/16 at 09:01; Status UNV Influenza Virus Vaccine Quadrival (Fluarix Quad [id number] Syringe) 0.5 ml ONCE ONCE VAX IM ; Start 03/25/16 at 09:00; Stop 03/25/16 at 09:01; Status DC Pneumococcal Polyvalent Vaccine (Pneumovax 23) 0.5 ml ONCE ONCE VAX IM ; Start 03/25/16 at 09:00; Stop 03/25/16 at 09:01; Status DC Albuterol Sulfate (Ventolin Neb Soln) 2.5 mg PRN Q4HRS PRN NEB SHORTNESS OF BREATH Last administered on 03/25/16 06:53; Start 03/25/16 at 06:30 Acetaminophen (Tylenol) 650 mg PRN Q6HRS PRN PO MILD PAIN / TEMP; Start at 06:30 Acetaminophen (Tylenol) 650 mg 1X ONCE PO Last administered on 03/25/16 06:30 ; Start 03/25/16 at 06:30; Stop 03/25/16 at 06:32; Status DC Budesonide (Pulmicort) 0.5 mg RTBID NEB Last administered on 03/27/16 07:35; Start 03/25/16 at 08:00 Furosemide (Lasix) 20 mg 1X ONCE IVP Last administered on 03/25/16 08:29; Start 03/25/16 at 08:15; Stop 03/25/16 at 08:16; Status DC Piperacillin Sod/ Tazobactam Sod (Zosyn Per Pharmacy) 1 each PRN DAILY PRN MC SEE COMMENTS; Start 03/25/16 at 09:00 Vancomycin HCl 1 each 1 each PRN DAILY PRN MC SEE COMMENTS Last administered on 03/27/16 09:48; Start 03/25/16 at 09:00 Sodium Chloride 1,000 ml @ 999 mls/hr 1X ONCE IV Last administered on 09:17; Start 03/25/16 at 09:15; Stop 03/25/16 at 10:15; Status DC Vancomycin HCl 1.75 gm/Sodium Chloride 500 ml @ 250 mls/hr 1X ONCE IV Last administered on 03/25/16 09:17; Start 03/25/16 at 09:30; Stop 03/25/16 at 11:29 ; Status DC Piperacillin Sod/ Tazobactam Sod 2.25 gm/Sodium Chloride 50 ml @ 100 mls/hr Q6HRS IV Last administered on 03/27/16 05:32; Start 03/25/16 at 09:30; Stop at 09:43; Status DC Sodium Chloride 1,000 ml @ 125 mls/hr Q8H IV Last administered on 03/27/16 04 :39; Start 03/25/16 at 10:30 Vancomycin HCl/ Sodium Chloride (Iv Sodium Chloride 0.9% 250ml) 250 ml @ 167 mls/hr Q24H IV Last administered on 03/26/16 09:04; Start 03/26/16 at 09:00; Stop 03/27/16 at 09:40; Status DC Vancomycin HCl 1 each 1X ONCE MC Last administered on 03/27/16 08:30; Start 03/27/16 at 08:30; Stop 03/27/16 at 08:31; Status DC Insulin Detemir (Levemir) 15 units QHS SQ Last administered on 03/26/16 21:09 ; Start 03/25/16 at 21:00 Morphine Sulfate 2 mg PRN Q2HR PRN IV PAIN Last administered on 03/27/16 05:48 ; Start 03/25/16 at 20:30; Stop 03/27/16 at 11:14; Status DC Albuterol/ Ipratropium (Duoneb) 3 ml RTQID NEB Last administered on 03/27/16 11:24; Start 03/26/16 at 09:00 Famotidine (Pepcid) 20 mg QHS PO Last administered on 03/26/16 19:40; Start at 21:00 Montelukast Sodium 10 mg 10 mg QHS PO ; Start 03/27/16 at 21:00 Vancomycin HCl 1.5 gm/Sodium Chloride 500 ml @ 250 mls/hr 1X ONCE IV Last administered on 03/27/16 10:15; Start 03/27/16 at 10:00; Stop 03/27/16 at 11:59 ; Status DC Vancomycin HCl/ Sodium Chloride (Iv Sodium Chloride 0.9% 250ml) 250 ml @ 167 mls/hr Q12H IV ; Start 03/27/16 at 22:00 Vancomycin HCl 1 each 1 each 1X ONCE MC ; Start 03/28/16 at 21:30; Stop at 21:31 Piperacillin Sod/ Tazobactam Sod 3.375 gm/Sodium Chloride 50 ml @ 100 mls/hr Q6HRS IV ; Start 03/27/16 at 12:00; Stop 03/27/16 at 12:00; Status DC Levofloxacin/ Dextrose (LEVAQUIN 750mg PREMIX) 150 ml @ 100 mls/hr Q24H IV Last administered on 03/27/16 13:49; Start 03/27/16 at 12:00 Morphine Sulfate 4 mg PRN Q2HR PRN IV PAIN Last administered on 03/27/16 11:26 ; Start 03/27/16 at 11:15 Morphine Sulfate (Ms Contin) 15 mg 1X ONCE PO Last administered on 03/27/16 11:19; Start 03/27/16 at 11:30; Stop 03/27/16 at 11:31; Status DC Active Scripts Active Reported [New Blood Sugar Med] PO BID [Lisinopril] Mg PO DAILY Vitals/I & O Vital Sign - Last 24 Hours 03/26/16 03/26/16 03/26/16 03/26/16 15:39 16:00 16:35 17:00 Temp 99.2 99.2 Pulse 128 126 Resp 19 16 17 B/P 168/83 151/97 Pulse Ox 99 95 91 O2 Delivery Room Air Room Air Room Air Room Air 03/26/16 03/26/16 03/26/16 03/26/16 19:00 19:40 19:59 20:00 Temp 98.5 98.5 Pulse 118 Resp 20 18 B/P 162/108 Pulse Ox 94 99 O2 Delivery Room Air Room Air Room Air Room Air 03/26/16 03/26/16 03/26/16 03/27/16 20:28 21:09 23:00 02:36 Temp 98.1 98.8 98.1 98.8 Pulse 116 113 Resp 18 18 20 20 B/P 138/91 156/103 Pulse Ox 93 98 O2 Delivery Room Air Room Air Room Air Nasal Cannula O2 Flow Rate 2.0 03/27/16 03/27/16 03/27/16 03/27/16 05:48 06:29 07:00 07:35 Temp 100.1 100.1 Pulse 120 Resp 18 16 B/P 164/105 Pulse Ox 99 100 O2 Delivery Nasal Cannula Nasal Cannula Room Air Nasal Cannula O2 Flow Rate 2.0 2.0 2.0 03/27/16 03/27/16 03/27/16 07:40 11:00 11:25 Temp 98.8 98.8 Pulse 117 Resp 17 B/P 163/107 Pulse Ox 100 92 O2 Delivery Nasal Cannula Room Air Nasal Cannula O2 Flow Rate 2.0 2.0 Intake and Output 03/26/16 03/26/16 03/27/16 15:00 23:00 07:00 Intake Total 3977 ml 1340 ml Output Total 1650 ml Balance 2327 ml 1340 ml WILLIAM SABA MD Mar 27, 2016 14:03
[2016-03-27 15:00] VITALS: BP 171/112
[2016-03-27 20:25] VITALS: BP 166/111
[2016-03-27] MEDS ORDERED: MONTELUKAST SODIUM 10 MG TABLET. PO SCH (21:00)
[2016-03-27] MEDS: FAMOTIDINE 20 MG TABLET. PO SCH (21:01)
[2016-03-27] MEDS: INSULIN DETEMIR 300 UNITS/3 ML INSULN.PEN. SQ SCH (21:05)
[2016-03-27 23:05] VITALS: BP 174/108
[2016-03-28 03:13] VITALS: BP 163/106
[2016-03-28 07:00] VITALS: BP 169/108
[2016-03-28] MEDS: INSULIN ASPART 300 UNITS/3 ML INSULN.PEN SQ SCH ×2 (07:30→11:30)
[2016-03-28] MEDS: BUDESONIDE 0.5 MG/2 ML NEBU NEB SCH (07:54)
[2016-03-28] MEDS: IPRATRPIUM/ALBUTEROL 0.5/2.5MG 3 ML NEBU. NEB SCH ×2 (07:54→11:50)
[2016-03-28] MEDS: DOCUSATE SODIUM 100 MG CAPSULE PO SCH (08:54)
--- NOTE | 2016-03-28 09:52 | PDOC ---
PULMONARY PROGRESS NOTES Subjective has sob, cough, sputum, nasal congestion, better , has abd pain better, no cp. has snoring and eds. Vitals Vital Signs Date Time Temp Pulse Resp B/P Pulse Ox O2 Delivery O2 Flow Rate FiO2 03/28/16 08:18 92 Room Air 03/28/16 07:00 98.0 111 22 169/108 98.0 03/27/16 20:32 2.0 Comments ros as above other sys otherwise neg General: Alert HEENT: Other (nc, at perrl, throat nose clear) Lungs: Clear, Other Cardiovascular: S1, S2 Abdomen: Soft, Non-tender, Other (no mass) Neuro Exam: Alert Extremities: Other (no c/c) Skin: Warm Labs Laboratory Tests Test 03/26/16 12:15 03/26/16 16:55 03/26/16 20:37 03/27/16 07:52 Glucose (Fingerstick) 103mg/dL (70-99) 152mg/dL (70-99) 158mg/dL (70-99) 96mg/dL (70-99) Test 03/27/16 08:34 03/27/16 10:59 03/27/16 15:24 03/27/16 16:54 White Blood Count 8.8x10^3/uL (4.0-11.0) Red Blood Count 2.88x10^6/uL (3.50-5.40) Hemoglobin 8.4g/dL (12.0-15.5) Hematocrit 25.1% (36.0-47.0) Mean Corpuscular Volume 87fL (79-100) Mean Corpuscular Hemoglobin 29pg (25-35) Mean Corpuscular Hemoglobin Concent 34g/dL (31-37) Red Cell Distribution Width 13.9% (11.5-14.5) Platelet Count 265x10^3/uL (140-400) Sodium Level 141mmol/L (136-145) Potassium Level 3.9mmol/L (3.5-5.1) Chloride Level 108mmol/L (98-107) Carbon Dioxide Level 22mmol/L (21-32) Anion Gap 11 (6-14) Blood Urea Nitrogen 9mg/dL (7-20) Creatinine 1.1mg/dL (0.6-1.0) Estimated GFR (Cockcroft-Gault) 53.7 Glucose Level 122mg/dL (70-99) Calcium Level 7.5mg/dL (8.5-10.1) Vancomycin Level Trough 10.4mcg/mL (10.0-20.0) Vancomycin Last Dose Date 03/26/16 Vancomycin Last Dose Time 0900 Glucose (Fingerstick) 135mg/dL (70-99) 184mg/dL (70-99) 191mg/dL (70-99) Test 03/27/16 20:37 03/28/16 07:24 Glucose (Fingerstick) 118mg/dL (70-99) 80mg/dL (70-99) Laboratory Tests Test 03/27/16 10:59 03/27/16 15:24 03/27/16 16:54 03/27/16 20:37 Glucose (Fingerstick) 135mg/dL (70-99) 184mg/dL (70-99) 191mg/dL (70-99) 118mg/dL (70-99) Test 03/28/16 07:24 Glucose (Fingerstick) 80mg/dL (70-99) Medications Active Scripts Medications Dose Route/Sig Days Date Category [New Blood Sugar Med] PO BID 03/24/16 Reported [Lisinopril] Mg PO DAILY 03/24/[address] of chest reviewed, 1. Right greater than left lower lobe predominant multifocal pneumonia. Follow-up to confirm resolution. 2. Right greater than left hilar lymphadenopathy, likely reactive given the forementioned finding. Follow-up to confirm resolution. Impression . IMPRESSION: 1. Acute hypoxic respiratory failure, most likely related to bilateral lower lobe aspiration pneumonia and over sedation. 2. No significant history of tobacco use. 3. Abnormal ultrasound of the liver with hyperechoic 2.6-cm lesion in the superior pole of the right lobe of the liver, possibly hemangioma. Radiology suggested CT or MRI and will leave up to primary care. 4. Clinically unlikely congestive heart failure. 5. Clinical presentation consistent with sepsis. 6. abnl cxr and ct of chest 7. allergic rhinitis 8. snoring, eds, ? gloria Plan . RECOMMENDATIONS: 1. 02 titration 2. cont abx. 3. Consider infectious disease consult. 4. Bronchodilators qid, pulmicort 5. Follow chest x-ray today. 6. discussed gloria, the importance of diagnosis and tx. recommend psg as out pt 7. echocardiogram, ef nl 8. Discussed with with RN and pt. 9. pepcid 10. MISHA Cooney MD Mar 28, 2016 09:52
[2016-03-28] MEDS: VANCOMYCIN 1.25 GM in IV NORMAL SALINE 250ML 250 ML IV SCH (10:28)
--- NOTE | 2016-03-28 10:33 | RAD ---
Exam: PA and lateral chest radiograph History: Shortness of breath, follow-up pneumonia. Comparison: 03/25/2016. Findings: Cardiac silhouette appears within normal limits for size. No pneumothorax is seen. There is evidence of small bilateral pleural effusions. Given differences in technical factors, there is likely a little interval change in right greater than left alveolar infiltrates. Impression: No interval change in bilateral pneumonia.
[2016-03-28] MEDS: OXYCODONE/APAP 5/325 TABLET. PO PRN (10:39)
[2016-03-28 11:00] VITALS: BP 169/112
[2016-03-28] MEDS ORDERED: HYDR-2666 PO (12:40)
[2016-03-28] MEDS ORDERED: CIPR500T94 PO (12:40)
[2016-03-28] MEDS ORDERED: LISINOPRIL 5 MG TABLET. PO SCH (12:45)
[2016-03-28 12:51] VITALS: BP 169/112
[2016-03-28] MEDS ORDERED: POLYETHYLENE GLYCOL 3350 17 GM PACKET. PO PRN (14:00)
[2016-03-28] MEDS ORDERED: POLYETHYLENE GLYCOL 3350 17 GM PACKET. PO ONE (14:00)
== END 2016-03-28 15:00 | disposition home or self-care (01) | DRG 871 ==
LOC: ER 17:59 → 5 SOUTH 21:30 → 1 WEST ICU 03-25 08:00 → 5 SOUTH 03-26 16:47
PROVIDERS: ADMIT Internal Medicine; ATTEND Internal Medicine
DX: A41.9 Sepsis, unspecified organism (principal); J69.0 Pneumonitis due to inhalation of food and vomit; J96.01 Acute respiratory failure with hypoxia; E44.0 Moderate protein-calorie malnutrition; N17.9 Acute kidney failure, unspecified; N39.0 Urinary tract infection, site not specified; E11.43 Type 2 diabetes mellitus with diabetic autonomic (poly)neuropathy; G47.33 Obstructive sleep apnea (adult) (pediatric); J30.9 Allergic rhinitis, unspecified; K31.84 Gastroparesis; K76.9 Liver disease, unspecified; E11.65 Type 2 diabetes mellitus with hyperglycemia; D64.9 Anemia, unspecified; B96.20 Unspecified Escherichia coli [E. coli] as the cause of diseases classified elsewhere; N18.3 Chronic kidney disease, stage 3 (moderate); I12.9 Hypertensive chronic kidney disease with stage 1 through stage 4 chronic kidney disease, or unspecified chronic kidney disease; E11.22 Type 2 diabetes mellitus with diabetic chronic kidney disease; Z68.33 Body mass index [BMI] 33.0-33.9, adult; Z87.442 Personal history of urinary calculi
CPT/HCPCS: 36415; 36600; 71010; 71020; 71250; 74000; 76705; 76770; 80048; 80053; 80202; 81001; 81025; 82947; 83036; 83605; 83690; 85007; 85027; 87040; 87086; 87186; 87641; 90686; 90732; 93005; 93306; 94250; 94640; 94760; 96361; 96374; 96375; J0696; J1170; J1815; J1956; J2270; J2405; J2543; J3370; J7030; J7040; J7050; J7620; 99285-25

== ENCOUNTER 2017-02-06 20:14 | Inpatient (IN) | payer SELFPAY ==
[~2017-02-06] VITALS: Ht 157.5 cm; Wt 78.9 kg
[~2017-02-06 20:14] MED LIST: CIPR500T94 PO; HYDR-2758 PO; Lisinopril PO; [UNRECOGNIZED DRUG - REMARK] PO
[2017-02-06 20:49] LABS: BASO # 0.1 x10^3/uL (0.0-0.2); BASO % 1 % (0-3); EOS % 15 % (0-3); HEMATOCRIT 31.3 % (36.0-47.0); HEMOGLOBIN 10.3 g/dL (12.0-15.5); LYMPH % 25 % (24-48); MEAN CORPUSCULAR HEMOGLOBIN 30 pg (25-35); MEAN CORPUSCULAR HGB CONC 33 g/dL (31-37); MEAN CORPUSCULAR VOLUME 90 fL (79-100); MONO % 5 % (0-9); NEUT % 55 % (31-73); PLATELET COUNT 308 x10^3/uL (140-400); RED BLOOD COUNT 3.47 x10^6/uL (3.50-5.40); WHITE BLOOD COUNT 8.1 x10^3/uL (4.0-11.0)
[2017-02-06 20:59] LABS: INR 0.9 (0.8-1.1); PROTHROMBIN TIME PATIENT 11.8 SEC (11.7-14.0)
[2017-02-06 21:04] LABS: CALCIUM 8.5 mg/dL (8.5-10.1); CREATININE 1.9 mg/dL (0.6-1.0); GFR 28.5; POTASSIUM 4.3 mmol/L (3.5-5.1)
[2017-02-06 21:10] LABS: ALBUMIN 2.5 g/dL (3.4-5.0); ALBUMIN/GLOBULIN RATIO 0.6 (1.0-1.7); TOTAL BILIRUBIN 0.1 mg/dL (0.2-1.0); TOTAL PROTEIN 6.9 g/dL (6.4-8.2)
[2017-02-06] MEDS ORDERED: NITROGLYCERIN SUBLINGUAL 0.4 MG BOTTLE OF 25. SL PRN ×2 (21:45→22:15)
[2017-02-06] MEDS ORDERED: MORPHINE SULFATE 4 MG/ML DISP.SYRIN. IV/SQ PRN (21:45)
[2017-02-06] MEDS ORDERED: ASPIRIN 325 MG TABLET PO ONE (22:00)
[2017-02-06] MEDS ORDERED: IV NORMAL SALINE 1000ML BAG 1,000 ML IV ONE (22:00)
--- NOTE | 2017-02-06 22:00 | RAD ---
EXAM: Left lower extremity venous Doppler sonogram. HISTORY: Pain. TECHNIQUE: Wilkins scale and color Doppler sonographic evaluation of the left lower extremity veins with spectral waveform analysis was performed. FINDINGS: There is normal color flow, normal compressibility and there are normal spectral waveforms in the common femoral, superficial femoral, popliteal, posterior tibial and greater saphenous veins. IMPRESSION: No Doppler evidence of lower extremity venous thrombosis. Electronically signed by: Beulah Castle MD (02/06/2017 9:57 PM) [place] [id number]
[2017-02-06] MEDS ORDERED: DEXTROSE 50% 25 GM / 50ML DISP.SYRIN. IV PRN (22:15)
[2017-02-06] MEDS ORDERED: MORPHINE SULFATE 4 MG/ML DISP.SYRIN. IV PRN (22:15)
[2017-02-06] MEDS ORDERED: ONDANSETRON PF 4 MG/2 ML VIAL. IV PRN (22:15)
[2017-02-06 22:20] VITALS: BP 163/100
[2017-02-06] MEDS ORDERED: METF-620 PO (22:53)
[2017-02-06] MEDS ORDERED: LISI40TA PO (22:53)
--- NOTE | 2017-02-06 23:02 | PHYS DOC ---
Past Medical History Past Medical History: Diabetes-Type II, Hypertension Past Surgical History: Alcohol Use: Occasionally Drug Use: None Adult General Chief Complaint Chief Complaint: CHEST PAIN-CARDIAC NATURE HPI HPI Patient is a 46 year old female who presents with chest pain. The patient reports onset of substernal chest pain 9 hours prior to arrival, with several recurrent episodes. States pain is sharp/pressure-like, radiates to left chest and upper extremity, associated with shortness of breath, nausea, and diaphoresis. Reports pain and swelling to bilateral calves greater on the left. Denies fevers or chills, cough. Denies history of previous similar symptoms but she has had OR in the past, no stent placement required. She does not remember which hospital she visited at that time. She also has history of diabetes and hypertension, denies use of tobacco. Denies recent travel, surgery, immobilization, hormone use. No previous DVT/PE. Does not have a PCP. Review of Systems Review of Systems Constitutional: Denies fever or chills Eyes: Denies change in visual acuity HENT: Denies nasal congestion or sore throat Respiratory: Denies cough, reports shortness of breath Cardiovascular: Reports chest pain & edema GI: Reports nausea. Denies abdominal pain, vomiting, bloody stools or diarrhea : Denies dysuria or hematuria Musculoskeletal: Denies back pain or joint pain Integument: Denies rash or skin lesions Neurologic: Denies headache, focal weakness or sensory changes All other systems were reviewed and found to be within normal limits, except as documented in this note. Allergies Allergies Allergies Coded Allergies Type Severity Reaction Last Updated Verified No Known Drug Allergies 03/24/16 No Physical Exam Physical Exam Constitutional: obese, no acute distress, non-toxic appearance. HENT: Normocephalic, atraumatic, bilateral external ears normal, oropharynx moist, nose normal. Eyes: conjunctiva normal, no discharge. Neck: supple, no stridor. Cardiovascular: tachycardic, regular, no murmurs, no edema. Lungs & Thorax: LCTAB, no wheezing, no respiratory distress. no reproducible tenderness with palpation over anterior chest wall. Abdomen: soft, nontender, nondistended. Skin: Warm, dry, no erythema, no rash. Back: No tenderness. Extremities: bilateral L > R calf tenderness without obvious swelling, no pitting edema. Neurologic: Alert and oriented X 3, no focal deficits noted. Psychologic: Affect normal, judgement normal, mood normal. Current Patient Data Vital Signs Vital Signs Date Time Temp Pulse Resp B/P (MAP) Pulse Ox O2 Delivery O2 Flow Rate FiO2 02/06/17 21:22 96 16 148/82 (104) 96 Room Air 02/06/17 20:20 98.5 98.5 Lab Values Laboratory Tests Test 02/06/17 20:20 02/06/17 21:01 White Blood Count 8.1 x10^3/uL (4.0-11.0) Red Blood Count 3.47 x10^6/uL (3.50-5.40) L Hemoglobin 10.3 g/dL (12.0-15.5) L Hematocrit 31.3 % (36.0-47.0) L Mean Corpuscular Volume 90 fL (79-100) Mean Corpuscular Hemoglobin 30 pg (25-35) Mean Corpuscular Hemoglobin Concent 33 g/dL (31-37) Red Cell Distribution Width 13.0 % (11.5-14.5) Platelet Count 308 x10^3/uL (140-400) Neutrophils (%) (Auto) 55 % (31-73) Lymphocytes (%) (Auto) 25 % (24-48) Monocytes (%) (Auto) 5 % (0-9) Eosinophils (%) (Auto) 15 % (0-3) H Basophils (%) (Auto) 1 % (0-3) Neutrophils # (Auto) 4.5 x10^3uL (1.8-7.7) Lymphocytes # (Auto) 2.0 x10^3/uL (1.0-4.8) Monocytes # (Auto) 0.4 x10^3/uL (0.0-1.1) Eosinophils # (Auto) 1.2 x10^3/uL (0.0-0.7) H Basophils # (Auto) 0.1 x10^3/uL (0.0-0.2) Prothrombin Time 11.8 SEC (11.7-14.0) Prothrombin Time INR 0.9 (0.8-1.1) PTT 25 SEC (24-38) D-Dimer (Mara) 0.61 ug/mlFEU (0.00-0.50) H Sodium Level 133 mmol/L (136-145) L Potassium Level 4.3 mmol/L (3.5-5.1) Chloride Level 99 mmol/L (98-107) Carbon Dioxide Level 27 mmol/L (21-32) Anion Gap 7 (6-14) Blood Urea Nitrogen 28 mg/dL (7-20) H Creatinine 1.9 mg/dL (0.6-1.0) H Estimated GFR (Cockcroft-Gault) 28.5 BUN/Creatinine Ratio 15 (6-20) Glucose Level 338 mg/dL (70-99) H Calcium Level 8.5 mg/dL (8.5-10.1) Magnesium Level 2.0 mg/dL (1.8-2.4) Total Bilirubin 0.1 mg/dL (0.2-1.0) L Aspartate Amino Transferase (AST) 12 U/L (15-37) L Alanine Aminotransferase (ALT) 15 U/L (14-59) Alkaline Phosphatase 101 U/L (46-116) Troponin I Quantitative < 0.017 ng/mL (0.000-0.055) DT-Tis-N-Type Natriuretic Peptide 268 pg/mL (0-124) H Total Protein 6.9 g/dL (6.4-8.2) Albumin 2.5 g/dL (3.4-5.0) L Albumin/Globulin Ratio 0.6 (1.0-1.7) L POC Urine HCG, Qualitative Hcg negative (Negative) Laboratory Tests 02/06/17 20:20 Laboratory Tests 02/06/17 20:20 EKG EKG interpreted by me: sinus tachycardia rate 103, no acute ST/T wave changes, normal intervals, no ectopy.[] Radiology/Procedures Radiology/Procedures CXR, portable: interpreted by me: no cardiomegaly, no infiltrate, no pneumothorax, no acute process.[] Course & Med Decision Making Course & Med Decision Making Pertinent Labs and Imaging studies reviewed. (See chart for details) The patient presents with chest pain. Administered aspirin, nitroglycerin, morphine. Obtained labs, EKG, chest x-ray. No significant EKG changes, troponin negative. She was tachycardic upon arrival, obtained d-dimer which is elevated. She has acute renal failure with low GFR, unable to administer IV contrast for CT angiogram. Ordered VQ scan to further evaluate for PE. I have consulted with help desk technician and manager nuclear is being called in; this test has not yet been performed at time of admission. I did recommend admission to the hospital for further cardiac evaluation, & patient agrees with plan of care. Discussed with Dr. Casillas who agrees to admit to inpatient status, cardiology consult to Dr. Galvez. The patient is being admitted in stable condition. [] Dragon Disclaimer Dragon Disclaimer This electronic medical record was generated, in whole or in part, using a voice recognition dictation system. Departure Departure Impression: Primary Impression: Chest pain Additional Impressions: Acute renal failure Tachycardia Hyperglycemia Disposition: 09 ADMITTED INPATIENT Admitting Physician: Dimitri Casillas Condition: STABLE Referrals: NO PCP (PCP) Problem Qualifiers KATIE BELTRAN MD Feb 06, 2017 23:02
[2017-02-06 23:10] LABS: BILIRUBIN,URINE NEGATIVE (NEG); GLUCOSE,URINE >=1000 mg/dL (NEG); NITRITE,URINE NEGATIVE (NEG); PH,URINE 6.5; PROTEIN,URINE >=300 mg/dL (NEG-TRACE); UROBILINOGEN,URINE 0.2 mg/dL (0.2 mg/dL)
[2017-02-06 23:19] LABS: BACTERIA,URINE MANY /HPF (0-FEW); SQUAMOUS EPITHELIAL CELL,UR MOD /LPF; WBC,URINE 20-40 /HPF (0-4)
[2017-02-06] MEDS ORDERED: INSULIN ASPART 300 UNITS/3 ML INSULN.PEN SQ ONE (23:30)
--- NOTE | 2017-02-07 00:31 | RAD ---
Indication: dyspnea; elevated d-dimer Technique: Static images are obtained of both lungs following inhalation of 15.3 mCi xenon-133 and again following IV administration of 6 mCi of 99 M technetium MAA. Comparison: None. Findings: No definite mismatched defects that are worse on the perfusion when compared to the ventilation images. Patchy defects are seen both on the ventilation and perfusion images. Impression: 1. Low probability of pulmonary embolus. Electronically signed by: Sylvester Benavidez MD (02/07/2017 12:27 AM) [id number]
[2017-02-07 02:50] VITALS: BP 126/81
[2017-02-07 05:09] LABS: BASO % 1 % (0-3); EOS % 13 % (0-3); HEMATOCRIT 28.4 % (36.0-47.0); HEMOGLOBIN 9.4 g/dL (12.0-15.5); LYMPH # 1.9 x10^3/uL (1.0-4.8); LYMPH % 21 % (24-48); MEAN CORPUSCULAR HEMOGLOBIN 30 pg (25-35); MEAN CORPUSCULAR HGB CONC 33 g/dL (31-37); MEAN CORPUSCULAR VOLUME 89 fL (79-100); MONO % 6 % (0-9); NEUT % 60 % (31-73); PLATELET COUNT 279 x10^3/uL (140-400); RED BLOOD COUNT 3.19 x10^6/uL (3.50-5.40); WHITE BLOOD COUNT 9.1 x10^3/uL (4.0-11.0)
[2017-02-07 05:55] LABS: CALCIUM 7.9 mg/dL (8.5-10.1); CREATININE 1.6 mg/dL (0.6-1.0); GFR 34.7
--- NOTE | 2017-02-07 06:32 | EKG ---
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
--- NOTE | 2017-02-07 06:44 | EKG ---
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
[2017-02-07 07:00] VITALS: BP 142/93
--- NOTE | 2017-02-07 07:32 | RAD ---
Chest x-ray Indication: Chest pain Technique: Portable AP upright chest x-ray Comparison: Previous study from 03/25/2016 Findings: Heart is normal in size. Lungs are clear. No pneumothorax or pleural effusion. Visualized bony thorax within normal limits. Impression: No acute cardiopulmonary process.
[2017-02-07] MEDS: INSULIN ASPART 300 UNITS/3 ML INSULN.PEN SQ SCH ×3 (08:00→17:42)
[2017-02-07] MEDS ORDERED: INFLUENZA VAX SCREEN BY RX. MC ONE (09:00)
[2017-02-07] MEDS ORDERED: FLU VACC QS2017-18 (36MOS+)/PF 0.5 ML SYRINGE. VAX IM ONE (09:00)
--- NOTE | 2017-02-07 09:17 | PDOC2 ---
EUGENIO ARMENTA MOBILE PARAMEDICAL EXAMINER 02/07/17 0917: CARDIAC CONSULT DATE OF CONSULT Date of Consult DATE: 02/07/17 TIME: 08:48 REASON FOR CONSULT Reason for Consult: Chest pain REFERRING PHYSICIAN Referring Physician: Fanny SOURCE Source: Chart review, Patient HISTORY OF PRESENT ILLNESS HISTORY OF PRESENT ILLNESS This is a pleasant 46 yo female admitted for complains of chest pain. Reports that she has been having intermittent JIMENEZ with minimal exertion. Reports that yesterday she started having mid chest pressure that radiated to left arm. She had some nausea otherwise no SOA at rest. Denies any palpiations but she has been having intermittent dizziness. She takes lisinopril and metformin but no ASA or statin. She has financial constraints. Denies any CAD ot VTE. She is known for gastroparesis and CKD. Denies frequent NSAID use. No vomiting and and no diarrhea. Verbalized adequate hydration. PAST MEDICAL HISTORY Cardiovascular: HTN Pulmonary: Pneumonia (aspiration) GI: Other (gastroparesis) Heme/Onc: Anemia NOS Hepatobiliary: Other (liver lesion) Renal/: Chronic renal insuff, UTI, Other (nephrolithiasis) Endocrine: Diabetes PAST SURGICAL HISTORY Past Surgical History: FAMILY HISTORY Family History noncontributory to CV SOCIAL HISTORY Smoke: No ALCOHOL: occassional Drugs: None Lives: with Family CURRENT MEDICATIONS CURRENT MEDICATIONS Current Medications Medications (Trade) Dose Ordered Sig/Jorge Route PRN Reason Start Time Stop Time Status Last Admin Dose Admin Sodium Chloride 1,000 ml @ 1,000 mls/hr 1X ONCE IV 02/06/17 22:00 02/06/17 22:59 DC 02/06/17 21:53 Aspirin (Adelaida Aspirin) 325 mg 1X ONCE PO 02/06/17 22:00 02/06/17 22:01 DC 02/06/17 21:51 Nitroglycerin (Nitrostat) 0.4 mg PRN Q5MIN PRN SL CHEST PAIN 02/06/17 21:45 02/06/17 22:14 DC 02/06/17 21:51 Insulin Aspart (NovoLOG) 20 units 1X ONCE SQ 02/06/17 23:30 02/06/17 23:31 DC 02/06/17 23:38 ALLERGIES ALLERGIES: Coded Allergies: No Known Drug Allergies (Unverified , 03/24/16) ROS Review of System 14 point ROS evaluated with pertinent positives noted per HPI PHYSICAL EXAM General: Alert, Oriented X3, Cooperative, No acute distress HEENT: Atraumatic, Mucous membr. moist/pink Lungs: Clear to auscultation, Normal air movement Heart: Regular rate (SR/ST), Normal S1, Normal S2, Other (S3) Abdomen: Soft, No tenderness Extremities: No cyanosis, No edema Skin: No breakdown, No significant lesion Neuro: Normal speech, Sensation intact Psych/Mental Status: Mental status NL, Mood NL MUSCULOSKELETAL: Osteoarthritic changes both hands VITALS VITALS Vital Signs Date Time Temp Pulse Resp B/P (MAP) Pulse Ox O2 Delivery O2 Flow Rate FiO2 02/07/17 07:00 98.3 104 20 142/93 (109) 98 Room Air 98.3 LABS Lab: Laboratory Tests Test 02/06/17 20:20 02/06/17 21:00 02/06/17 21:01 02/06/17 22:29 White Blood Count 8.1 x10^3/uL (4.0-11.0) Red Blood Count 3.47 x10^6/uL (3.50-5.40) Hemoglobin 10.3 g/dL (12.0-15.5) Hematocrit 31.3 % (36.0-47.0) Mean Corpuscular Volume 90 fL (79-100) Mean Corpuscular Hemoglobin 30 pg (25-35) Mean Corpuscular Hemoglobin Concent 33 g/dL (31-37) Red Cell Distribution Width 13.0 % (11.5-14.5) Platelet Count 308 x10^3/uL (140-400) Neutrophils (%) (Auto) 55 % (31-73) Lymphocytes (%) (Auto) 25 % (24-48) Monocytes (%) (Auto) 5 % (0-9) Eosinophils (%) (Auto) 15 % (0-3) Basophils (%) (Auto) 1 % (0-3) Neutrophils # (Auto) 4.5 x10^3uL (1.8-7.7) Lymphocytes # (Auto) 2.0 x10^3/uL (1.0-4.8) Monocytes # (Auto) 0.4 x10^3/uL (0.0-1.1) Eosinophils # (Auto) 1.2 x10^3/uL (0.0-0.7) Basophils # (Auto) 0.1 x10^3/uL (0.0-0.2) Prothrombin Time 11.8 SEC (11.7-14.0) Prothromb Time International Ratio 0.9 (0.8-1.1) Activated Partial Thromboplast Time 25 SEC (24-38) D-Dimer (Mara) 0.61 ug/mlFEU (0.00-0.50) Sodium Level 133 mmol/L (136-145) Potassium Level 4.3 mmol/L (3.5-5.1) Chloride Level 99 mmol/L (98-107) Carbon Dioxide Level 27 mmol/L (21-32) Anion Gap 7 (6-14) Blood Urea Nitrogen 28 mg/dL (7-20) Creatinine 1.9 mg/dL (0.6-1.0) Estimated GFR (Cockcroft-Gault) 28.5 BUN/Creatinine Ratio 15 (6-20) Glucose Level 338 mg/dL (70-99) Calcium Level 8.5 mg/dL (8.5-10.1) Magnesium Level 2.0 mg/dL (1.8-2.4) Total Bilirubin 0.1 mg/dL (0.2-1.0) Aspartate Amino Transf (AST/SGOT) 12 U/L (15-37) Alanine Aminotransferase (ALT/SGPT) 15 U/L (14-59) Alkaline Phosphatase 101 U/L (46-116) Troponin I Quantitative < 0.017 ng/mL (0.000-0.055) FC-Zgo-[id number]-Type Natriuretic Peptide 268 pg/mL (0-124) Total Protein 6.9 g/dL (6.4-8.2) Albumin 2.5 g/dL (3.4-5.0) Albumin/Globulin Ratio 0.6 (1.0-1.7) Urine Collection Type Unknown Urine Color Yellow Urine Clarity Clear Urine pH 6.5 Urine Specific [place] 1.020 Urine Protein >=300 mg/dL (NEG-TRACE) Urine Glucose (UA) >=1000 mg/dL (NEG) Urine Ketones (Stick) Negative mg/dL (NEG) Urine Blood Small (NEG) Urine Nitrite Negative (NEG) Urine Bilirubin Negative (NEG) Urine Urobilinogen Dipstick 0.2 mg/dL (0.2 mg/dL) Urine Leukocyte Esterase Negative (NEG) Urine RBC 3-5 /HPF (0-2) Urine WBC 20-40 /HPF (0-4) Urine Squamous Epithelial Cells Mod /LPF Urine Bacteria Many /HPF (0-FEW) Bedside Urine HCG, Qualitative Hcg negative (Negative) Glucose (Fingerstick) 344 mg/dL (70-99) Test 02/07/17 01:51 02/07/17 02:05 02/07/17 04:00 02/07/17 07:11 Glucose (Fingerstick) 57 mg/dL (70-99) 73 mg/dL (70-99) 374 mg/dL (70-99) White Blood Count 9.1 x10^3/uL (4.0-11.0) Red Blood Count 3.19 x10^6/uL (3.50-5.40) Hemoglobin 9.4 g/dL (12.0-15.5) Hematocrit 28.4 % (36.0-47.0) Mean Corpuscular Volume 89 fL (79-100) Mean Corpuscular Hemoglobin 30 pg (25-35) Mean Corpuscular Hemoglobin Concent 33 g/dL (31-37) Red Cell Distribution Width 13.0 % (11.5-14.5) Platelet Count 279 x10^3/uL (140-400) Neutrophils (%) (Auto) 60 % (31-73) Lymphocytes (%) (Auto) 21 % (24-48) Monocytes (%) (Auto) 6 % (0-9) Eosinophils (%) (Auto) 13 % (0-3) Basophils (%) (Auto) 1 % (0-3) Neutrophils # (Auto) 5.4 x10^3uL (1.8-7.7) Lymphocytes # (Auto) 1.9 x10^3/uL (1.0-4.8) Monocytes # (Auto) 0.5 x10^3/uL (0.0-1.1) Eosinophils # (Auto) 1.2 x10^3/uL (0.0-0.7) Basophils # (Auto) 0.0 x10^3/uL (0.0-0.2) Sodium Level 137 mmol/L (136-145) Potassium Level 4.0 mmol/L (3.5-5.1) Chloride Level 103 mmol/L (98-107) Carbon Dioxide Level 26 mmol/L (21-32) Anion Gap 8 (6-14) Blood Urea Nitrogen 27 mg/dL (7-20) Creatinine 1.6 mg/dL (0.6-1.0) Estimated GFR (Cockcroft-Gault) 34.7 Glucose Level 205 mg/dL (70-99) Calcium Level 7.9 mg/dL (8.5-10.1) Troponin I Quantitative < 0.017 ng/mL (0.000-0.055) ECHOCARDIOGRAM ECHOCARDIOGRAM <Conclusion> The left ventricular systolic function is normal. The ejection fraction is estimated at 60%. There is normal LV segmental wall motion. Doppler and Color Flow revealed mild tricuspid regurgitation. The PA pressure was estimated at 41 mmHg. There is no evidence of significant pericardial effusion. DATE: 03/25/16 1430 ASSESSMENT/PLAN ASSESSMENT/PLAN 1. Chest pain: Sinus tach. Trop normal, EKG no acute changes. 2. DIDI on CKD3: improved Cr with IV hydration. 3. DM2 with likely nephropathy: hypoglycemia this am. 4. Anemia of chronic disease 5. Hx of gastroparesis Recommendations 1. Stop metformin and consider alternative for now per PCP 2. Hold lisinopril for now. Consult nephrology for renal optimization 3. Will need ischemic workup. LHC vs MPI tomorrow. Unable to do MPI due to recent V/Q which is low prob for PE. 4. Start on metoprolol and ASA TTE today Problems: WINNIE STERLING MD 02/07/17 1633: CARDIAC CONSULT ALLERGIES ALLERGIES: Coded Allergies: No Known Drug Allergies (Unverified , 03/24/16) ASSESSMENT/PLAN ASSESSMENT/PLAN Patient seen and examined. Agree with SHIRT IRONER's assessment and plan. Chest pain with mixed typical and atypical features. Myocardial infarction ruled out. 2-D echo showed normal LV systolic function without any wall motion abnormalities. Plan for Lexiscan nuclear stress test to rule out ischemia tomorrow. Continue intravenous hydration for acute on chronic renal insufficiency. Nephrology team following. Thank you for your consultation. Problems: EUGENIO ARMENTA APRN Feb 07, 2017 09:17 WINNIE STERLING MD Feb 07, 2017 16:33
[2017-02-07 09:52] LABS: CHOLESTEROL/HDL RATIO 4.3
[2017-02-07 09:57] LABS: % EOS 10 % (0-5)
[2017-02-07 09:58] LABS: PLT ESTIMATE ADEQUATE (ADEQUATE)
[2017-02-07 11:00] VITALS: BP 164/102
[2017-02-07] MEDS: ASPIRIN ENTERIC COATED 81 MG TABLET.DR. PO SCH (11:04)
[2017-02-07] MEDS: ACETAMINOPHEN 325 MG TABLET. PO PRN ×2 (11:04→17:31)
[2017-02-07] MEDS: METOPROLOL TART IMMED RELEASE 25 MG TABLET. PO SCH ×2 (11:04→21:41)
[2017-02-07] MEDS: IV NORMAL SALINE 1000ML BAG 1,000 ML IV SCH (11:10)
--- NOTE | 2017-02-07 11:12 | PDOC2 ---
CONSULT Date of Consult Date of Consult DATE: 02/07/17 TIME: 11:07 Reason for Consult Reason for Consult: RENAL FAILURE Referring Physician Referring Physician: PETER Identification/Chief Complaint Chief Complaint CHEST PAIN Problems: Source Source: Chart review, Patient History of Present Illness Reason for Visit: THIS IS A 46 YR OLD ADMITTED WITH CHEST PAIN. RISK FACTORS INCLUDED DM, HTN AND CKD. RENAL CONSULT ASKED DUE TO CR OF ABOUT 1.7. LABS FROM A YR AGO INDICATE SIMILAR READINGS. SHE WAS ALSO TOLD IN A HOSPITAL IN [place] THAT SHE HAD CHRONIC KIDNEY PROBLEMS. NO HX OF ANY KIDNEY OR BLADDER SURGERIES HEMATURIA DYSURIA OR FREQUENCY NOTED. NO NSAID ABUSE HX. NO FREQUENT UTI HX NOTED. CURRENTLY IN NEED OF A HEART CATH Past Medical History Cardiovascular: HTN Pulmonary: Pneumonia (aspiration) GI: Other (gastroparesis) Heme/Onc: Anemia NOS Hepatobiliary: Other (liver lesion) Renal/: Chronic renal insuff, UTI, Other (nephrolithiasis) Endocrine: Diabetes Past Surgical History Past Surgical History: Family History Family History: No Significant Social History No ALCOHOL: occassional Drugs: None Lives: with Family Current Problem List Problem List Problems Medical Problems: (1) Acute renal failure Status: Acute (2) Chest pain Status: Acute (3) Hyperglycemia Status: Acute (4) Tachycardia Status: Acute Current Medications Current Medications Current Medications Sodium Chloride 1,000 ml @ 1,000 mls/hr 1X ONCE IV Last administered on 02/06 21:53; Start 02/06/17 at 22:00; Stop 02/06/17 at 22:59; Status DC Aspirin (Adelaida Aspirin) 325 mg 1X ONCE PO Last administered on 02/06/17 21: 51; Start 02/06/17 at 22:00; Stop 02/06/17 at 22:01; Status DC Nitroglycerin (Nitrostat) 0.4 mg PRN Q5MIN PRN SL CHEST PAIN Last administered on 02/06/17 21:51; Start 02/06/17 at 21:45; Stop 02/06/17 at 22:14; Status DC Morphine Sulfate 4 mg PRN Q15MIN PRN IV/SQ PAIN GREATER THAN 3/10; Start 02/06 at 21:45; Stop 02/07/17 at 21:44 Ondansetron HCl (Zofran) 4 mg PRN Q8HRS PRN IV NAUSEA/VOMITING; Start at 22:15; Stop 02/07/17 at 22:14 Morphine Sulfate 4 mg PRN Q2HR PRN IV SEVERE PAIN; Start 02/06/17 at 22:15; Stop 02/07/17 at 22:14 Acetaminophen (Tylenol) 650 mg PRN Q4HRS PRN PO FEVER Last administered on 11:04; Start 02/06/17 at 22:15; Stop 02/07/17 at 22:14 Nitroglycerin (Nitrostat) 0.4 mg PRN Q5MIN PRN SL CHEST PAIN; Start 02/06/17 at 22:15; Stop 02/07/17 at 22:14 Insulin Aspart (NovoLOG) 0-7 UNITS TIDWMEALS SQ ; Start 02/07/17 at 08:00 Dextrose (Dextrose 50%-Water Syringe) 12.5 gm PRN Q15MIN PRN IV SEE COMMENTS; Start 02/06/17 at 22:15 Insulin Aspart (NovoLOG) 20 units 1X ONCE SQ Last administered on 02/06/17 23:38; Start 02/06/17 at 23:30; Stop 02/06/17 at 23:31; Status DC Info (Do NOT chart on this placeholder) 1 each 1X ONCE MC ; Start 02/07/17 at 09:00; Stop 02/07/17 at 09:01; Status UNV Influenza Virus Vaccine Quadrival (Fluarix Quad [id number] Syringe) 0.5 ml ONCE ONCE VAX IM ; Start 02/07/17 at 09:00; Stop 02/07/17 at 09:01; Status DC Aspirin (Ecotrin) 81 mg DAILYWBKFT PO Last administered on 02/07/17 11:04; Start 02/07/17 at 09:30 Metoprolol Tartrate (Lopressor) 25 mg BID PO Last administered on 02/07/17 11 :04; Start 02/07/17 at 10:00 Active Scripts Active Reported Metformin Hcl 1,000 Mg Tablet 1,000 Mg PO BIDWMEALS Lisinopril 40 Mg Tablet 1 Tab PO DAILY Allergies Allergies: Coded Allergies: No Known Drug Allergies (Unverified , 03/24/16) ROS General: YES: Fatigue PSYCHOLOGICAL ROS: YES: Anxiety Eyes: Yes Decreased vision HEENT: YES: Heacaches Respiratory: YES: Cough Gastrointestinal: Yes Constipation Genitourinary: YES Other (NOCTURIA) Musculoskeletal: Yes Muscular Weakness Neurological: Yes Weakness Skin: Yes Dry Skin Physical Exam General: Alert, Oriented X3, Cooperative, No acute distress HEENT: Atraumatic, PERRLA Lungs: Clear to auscultation, Normal air movement Heart: Regular rate, Normal S1, Normal S2 Abdomen: Normal bowel sounds, No tenderness Extremities: No clubbing Neuro: Normal speech, Cranial nerves 3-12 NL Psych/Mental Status: Mental status NL, Mood NL MUSCULOSKELETAL: No deformity, No swelling Vitals VITALS Vital Signs Date Time Temp Pulse Resp B/P (MAP) Pulse Ox O2 Delivery O2 Flow Rate FiO2 02/07/17 11:04 104 142/93 02/07/17 08:00 Room Air 02/07/17 07:00 98.3 20 98 98.3 Labs Labs Laboratory Tests Test 02/06/17 20:20 02/06/17 21:00 02/06/17 21:01 02/06/17 22:29 White Blood Count 8.1 x10^3/uL (4.0-11.0) Red Blood Count 3.47 x10^6/uL (3.50-5.40) Hemoglobin 10.3 g/dL (12.0-15.5) Hematocrit 31.3 % (36.0-47.0) Mean Corpuscular Volume 90 fL (79-100) Mean Corpuscular Hemoglobin 30 pg (25-35) Mean Corpuscular Hemoglobin Concent 33 g/dL (31-37) Red Cell Distribution Width 13.0 % (11.5-14.5) Platelet Count 308 x10^3/uL (140-400) Neutrophils (%) (Auto) 55 % (31-73) Lymphocytes (%) (Auto) 25 % (24-48) Monocytes (%) (Auto) 5 % (0-9) Eosinophils (%) (Auto) 15 % (0-3) Basophils (%) (Auto) 1 % (0-3) Neutrophils # (Auto) 4.5 x10^3uL (1.8-7.7) Lymphocytes # (Auto) 2.0 x10^3/uL (1.0-4.8) Monocytes # (Auto) 0.4 x10^3/uL (0.0-1.1) Eosinophils # (Auto) 1.2 x10^3/uL (0.0-0.7) Basophils # (Auto) 0.1 x10^3/uL (0.0-0.2) Prothrombin Time 11.8 SEC (11.7-14.0) Prothromb Time International Ratio 0.9 (0.8-1.1) Activated Partial Thromboplast Time 25 SEC (24-38) D-Dimer (Mara) 0.61 ug/mlFEU (0.00-0.50) Sodium Level 133 mmol/L (136-145) Potassium Level 4.3 mmol/L (3.5-5.1) Chloride Level 99 mmol/L (98-107) Carbon Dioxide Level 27 mmol/L (21-32) Anion Gap 7 (6-14) Blood Urea Nitrogen 28 mg/dL (7-20) Creatinine 1.9 mg/dL (0.6-1.0) Estimated GFR (Cockcroft-Gault) 28.5 BUN/Creatinine Ratio 15 (6-20) Glucose Level 338 mg/dL (70-99) Calcium Level 8.5 mg/dL (8.5-10.1) Magnesium Level 2.0 mg/dL (1.8-2.4) Total Bilirubin 0.1 mg/dL (0.2-1.0) Aspartate Amino Transf (AST/SGOT) 12 U/L (15-37) Alanine Aminotransferase (ALT/SGPT) 15 U/L (14-59) Alkaline Phosphatase 101 U/L (46-116) Troponin I Quantitative < 0.017 ng/mL (0.000-0.055) VI-Nir-K-Type Natriuretic Peptide 268 pg/mL (0-124) Total Protein 6.9 g/dL (6.4-8.2) Albumin 2.5 g/dL (3.4-5.0) Albumin/Globulin Ratio 0.6 (1.0-1.7) Urine Collection Type Unknown Urine Color Yellow Urine Clarity Clear Urine pH 6.5 Urine Specific [place] 1.020 Urine Protein >=300 mg/dL (NEG-TRACE) Urine Glucose (UA) >=1000 mg/dL (NEG) Urine Ketones (Stick) Negative mg/dL (NEG) Urine Blood Small (NEG) Urine Nitrite Negative (NEG) Urine Bilirubin Negative (NEG) Urine Urobilinogen Dipstick 0.2 mg/dL (0.2 mg/dL) Urine Leukocyte Esterase Negative (NEG) Urine RBC 3-5 /HPF (0-2) Urine WBC 20-40 /HPF (0-4) Urine Squamous Epithelial Cells Mod /LPF Urine Bacteria Many /HPF (0-FEW) Bedside Urine HCG, Qualitative Hcg negative (Negative) Glucose (Fingerstick) 344 mg/dL (70-99) Test 02/07/17 01:51 02/07/17 02:05 02/07/17 04:00 02/07/17 07:11 Glucose (Fingerstick) 57 mg/dL (70-99) 73 mg/dL (70-99) 374 mg/dL (70-99) White Blood Count 9.1 x10^3/uL (4.0-11.0) Red Blood Count 3.19 x10^6/uL (3.50-5.40) Hemoglobin 9.4 g/dL (12.0-15.5) Hematocrit 28.4 % (36.0-47.0) Mean Corpuscular Volume 89 fL (79-100) Mean Corpuscular Hemoglobin 30 pg (25-35) Mean Corpuscular Hemoglobin Concent 33 g/dL (31-37) Red Cell Distribution Width 13.0 % (11.5-14.5) Platelet Count 279 x10^3/uL (140-400) Neutrophils (%) (Auto) 60 % (31-73) Lymphocytes (%) (Auto) 21 % (24-48) Monocytes (%) (Auto) 6 % (0-9) Eosinophils (%) (Auto) 13 % (0-3) Basophils (%) (Auto) 1 % (0-3) Neutrophils # (Auto) 5.4 x10^3uL (1.8-7.7) Lymphocytes # (Auto) 1.9 x10^3/uL (1.0-4.8) Monocytes # (Auto) 0.5 x10^3/uL (0.0-1.1) Eosinophils # (Auto) 1.2 x10^3/uL (0.0-0.7) Basophils # (Auto) 0.0 x10^3/uL (0.0-0.2) Segmented Neutrophils % 64 % (35-66) Band Neutrophils % 2 % (0-9) Lymphocytes % 19 % (24-48) Monocytes % 5 % (0-10) Eosinophils % 10 % (0-5) Platelet Estimate Adequate (ADEQUATE) Sodium Level 137 mmol/L (136-145) Potassium Level 4.0 mmol/L (3.5-5.1) Chloride Level 103 mmol/L (98-107) Carbon Dioxide Level 26 mmol/L (21-32) Anion Gap 8 (6-14) Blood Urea Nitrogen 27 mg/dL (7-20) Creatinine 1.6 mg/dL (0.6-1.0) Estimated GFR (Cockcroft-Gault) 34.7 Glucose Level 205 mg/dL (70-99) Calcium Level 7.9 mg/dL (8.5-10.1) Troponin I Quantitative < 0.017 ng/mL (0.000-0.055) Triglycerides Level 132 mg/dL (0-150) Cholesterol Level 196 mg/dL (0-200) LDL Cholesterol, Calculated 124 mg/dL (0-100) VLDL Cholesterol, Calculated 26 mg/dL (0-40) Non-HDL Cholesterol Calculated 150 mg/dL (0-129) HDL Cholesterol 46 mg/dL (40-60) Cholesterol/HDL Ratio 4.3 Laboratory Tests Test 02/06/17 20:20 02/06/17 21:00 02/06/17 21:01 02/06/17 22:29 White Blood Count 8.1 x10^3/uL (4.0-11.0) Red Blood Count 3.47 x10^6/uL (3.50-5.40) Hemoglobin 10.3 g/dL (12.0-15.5) Hematocrit 31.3 % (36.0-47.0) Mean Corpuscular Volume 90 fL (79-100) Mean Corpuscular Hemoglobin 30 pg (25-35) Mean Corpuscular Hemoglobin Concent 33 g/dL (31-37) Red Cell Distribution Width 13.0 % (11.5-14.5) Platelet Count 308 x10^3/uL (140-400) Neutrophils (%) (Auto) 55 % (31-73) Lymphocytes (%) (Auto) 25 % (24-48) Monocytes (%) (Auto) 5 % (0-9) Eosinophils (%) (Auto) 15 % (0-3) Basophils (%) (Auto) 1 % (0-3) Neutrophils # (Auto) 4.5 x10^3uL (1.8-7.7) Lymphocytes # (Auto) 2.0 x10^3/uL (1.0-4.8) Monocytes # (Auto) 0.4 x10^3/uL (0.0-1.1) Eosinophils # (Auto) 1.2 x10^3/uL (0.0-0.7) Basophils # (Auto) 0.1 x10^3/uL (0.0-0.2) Prothrombin Time 11.8 SEC (11.7-14.0) Prothromb Time International Ratio 0.9 (0.8-1.1) Activated Partial Thromboplast Time 25 SEC (24-38) D-Dimer (Mara) 0.61 ug/mlFEU (0.00-0.50) Sodium Level 133 mmol/L (136-145) Potassium Level 4.3 mmol/L (3.5-5.1) Chloride Level 99 mmol/L (98-107) Carbon Dioxide Level 27 mmol/L (21-32) Anion Gap 7 (6-14) Blood Urea Nitrogen 28 mg/dL (7-20) Creatinine 1.9 mg/dL (0.6-1.0) Estimated GFR (Cockcroft-Gault) 28.5 BUN/Creatinine Ratio 15 (6-20) Glucose Level 338 mg/dL (70-99) Calcium Level 8.5 mg/dL (8.5-10.1) Magnesium Level 2.0 mg/dL (1.8-2.4) Total Bilirubin 0.1 mg/dL (0.2-1.0) Aspartate Amino Transf (AST/SGOT) 12 U/L (15-37) Alanine Aminotransferase (ALT/SGPT) 15 U/L (14-59) Alkaline Phosphatase 101 U/L (46-116) Troponin I Quantitative < 0.017 ng/mL (0.000-0.055) ME-Nut-D-Type Natriuretic Peptide 268 pg/mL (0-124) Total Protein 6.9 g/dL (6.4-8.2) Albumin 2.5 g/dL (3.4-5.0) Albumin/Globulin Ratio 0.6 (1.0-1.7) Urine Collection Type Unknown Urine Color Yellow Urine Clarity Clear Urine pH 6.5 Urine Specific [place] 1.020 Urine Protein >=300 mg/dL (NEG-TRACE) Urine Glucose (UA) >=1000 mg/dL (NEG) Urine Ketones (Stick) Negative mg/dL (NEG) Urine Blood Small (NEG) Urine Nitrite Negative (NEG) Urine Bilirubin Negative (NEG) Urine Urobilinogen Dipstick 0.2 mg/dL (0.2 mg/dL) Urine Leukocyte Esterase Negative (NEG) Urine RBC 3-5 /HPF (0-2) Urine WBC 20-40 /HPF (0-4) Urine Squamous Epithelial Cells Mod /LPF Urine Bacteria Many /HPF (0-FEW) Bedside Urine HCG, Qualitative Hcg negative (Negative) Glucose (Fingerstick) 344 mg/dL (70-99) Test 02/07/17 01:51 02/07/17 02:05 02/07/17 04:00 02/07/17 07:11 Glucose (Fingerstick) 57 mg/dL (70-99) 73 mg/dL (70-99) 374 mg/dL (70-99) White Blood Count 9.1 x10^3/uL (4.0-11.0) Red Blood Count 3.19 x10^6/uL (3.50-5.40) Hemoglobin 9.4 g/dL (12.0-15.5) Hematocrit 28.4 % (36.0-47.0) Mean Corpuscular Volume 89 fL (79-100) Mean Corpuscular Hemoglobin 30 pg (25-35) Mean Corpuscular Hemoglobin Concent 33 g/dL (31-37) Red Cell Distribution Width 13.0 % (11.5-14.5) Platelet Count 279 x10^3/uL (140-400) Neutrophils (%) (Auto) 60 % (31-73) Lymphocytes (%) (Auto) 21 % (24-48) Monocytes (%) (Auto) 6 % (0-9) Eosinophils (%) (Auto) 13 % (0-3) Basophils (%) (Auto) 1 % (0-3) Neutrophils # (Auto) 5.4 x10^3uL (1.8-7.7) Lymphocytes # (Auto) 1.9 x10^3/uL (1.0-4.8) Monocytes # (Auto) 0.5 x10^3/uL (0.0-1.1) Eosinophils # (Auto) 1.2 x10^3/uL (0.0-0.7) Basophils # (Auto) 0.0 x10^3/uL (0.0-0.2) Segmented Neutrophils % 64 % (35-66) Band Neutrophils % 2 % (0-9) Lymphocytes % 19 % (24-48) Monocytes % 5 % (0-10) Eosinophils % 10 % (0-5) Platelet Estimate Adequate (ADEQUATE) Sodium Level 137 mmol/L (136-145) Potassium Level 4.0 mmol/L (3.5-5.1) Chloride Level 103 mmol/L (98-107) Carbon Dioxide Level 26 mmol/L (21-32) Anion Gap 8 (6-14) Blood Urea Nitrogen 27 mg/dL (7-20) Creatinine 1.6 mg/dL (0.6-1.0) Estimated GFR (Cockcroft-Gault) 34.7 Glucose Level 205 mg/dL (70-99) Calcium Level 7.9 mg/dL (8.5-10.1) Troponin I Quantitative < 0.017 ng/mL (0.000-0.055) Triglycerides Level 132 mg/dL (0-150) Cholesterol Level 196 mg/dL (0-200) LDL Cholesterol, Calculated 124 mg/dL (0-100) VLDL Cholesterol, Calculated 26 mg/dL (0-40) Non-HDL Cholesterol Calculated 150 mg/dL (0-129) HDL Cholesterol 46 mg/dL (40-60) Cholesterol/HDL Ratio 4.3 Assessment/Plan Assessment/Plan IMP CHEST PAIN CKD STAGE 3-CR AT BASELINE OF ABOUT 1.9-2.0 DM II HTN ANEMIA PROTEINURIA PLAN WILL NEED TO BE ON KNOWLEDGE MANAGEMENT ADVISOR CURTIS-I SUGGEST IVF'S CAN RISK EXPLAINED TO PT ALSO ASKED PT TO FOLLOW UP WITH A PCP AND OP RENAL HEART CATH PENDING D/W PT IMPORTANCE OF DM CONTROL ON SLOWING PROGRESSIVE END ORGAN DAMAGE LABS IN [place] FREEMAN MD Feb 07, 2017 11:12
--- NOTE | 2017-02-07 11:44 | HP ---
ADMIT DATE: 02/06/2017 CHIEF COMPLAINT: Chest pain. HISTORY OF PRESENT ILLNESS: The patient is a pleasant 46-year-old female who presents with chest pain. She does have diabetes. Her dad had heart attack. I discussed the case with the ER physician. We are going to admit the patient and consult Cardiology. PAST MEDICAL HISTORY: Diabetes, hypertension and . ALLERGIES: None. FAMILY HISTORY: Diabetes and coronary artery disease in her dad. SOCIAL HISTORY: She does not drink, smoke or take drugs. MEDICATIONS: Reviewed. REVIEW OF SYSTEMS: GENERAL: No history of weight change, weakness or fevers. SKIN: No bruising, hair changes or rashes. EYES: No blurred, double or loss of vision. NOSE AND THROAT: No history of nosebleeds, hoarseness or sore throat. HEART: No history of palpitations, chest pain or shortness of breath on exertion. LUNGS: Denies cough, hemoptysis, wheezing or shortness of breath. GASTROINTESTINAL: Denies changes in appetite, nausea, vomiting, diarrhea or constipation. GENITOURINARY: No history of frequency, urgency, hesitancy or nocturia. NEUROLOGIC: Denies history of numbness, tingling, tremor or weakness. PSYCHIATRIC: No history of panic, anxiety or depression. ENDOCRINE: No history of heat or cold intolerance, polyuria or polydipsia. EXTREMITIES: Denies muscle weakness, joint pain, pain on walking or stiffness. PHYSICAL EXAMINATION: VITAL SIGNS: Stable. Temperature afebrile, pulse 98, respirations 18 and blood pressure 144/70. GENERAL: She is alert, cooperative. HEART: S1, S2. LUNGS: Clear. ABDOMEN: Soft. EXTREMITIES: No edema. SKIN: No rashes. ENDOCRINE: No thyromegaly. LYMPHATICS: No cervical nodes. HEMATOPOIETIC: No bruising. LABORATORY DATA: White count 8, hemoglobin 10 and platelets 308,000. Electrolytes are normal, other than BUN of 27, creatinine 1.6 and glucose is 374. Troponin is 0. BNP 260. ASSESSMENT AND PLAN: Chest pain, rule out coronary artery disease. The patient has been admitted. We will consult Cardiology. Serial enzymes, serial EKGs, cardiac monitoring, daily aspirin and home medications. PROGNOSIS: Guarded. SUMEET GREEN DO DR: COOKIE/adan JOB#: [id number] / [id number]
--- NOTE | 2017-02-07 12:28 | EKG ---
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
[2017-02-07 15:00] VITALS: BP 113/72
--- NOTE | 2017-02-07 16:13 | CARD ---
APPROVED REPORT EXAM: Two-dimensional and M-mode echocardiogram with Doppler and color Doppler. Other Information Quality : Good INDICATION Chest Pain 2D DIMENSIONS RVDd3.4 (2.9-3.5cm)Left Atrium(2D)3.8 (1.6-4.0cm) IVSd1.1 (0.7-1.1cm)Aortic Root(2D)2.4 (2.0-3.7cm) LVDd4.1 (3.9-5.9cm)LVOT Diameter1.9 (1.8-2.4cm) PWd1.1 (0.7-1.1cm)LVDs2.5 (2.5-4.0cm) FS (%) 30.0 %SV50.6 ml LVEF(%)60.0 (>50%) Mitral Valve MV E Lovbuuto64.8cm/sMV DECEL [id number] MV A Ilfpxsae46.2cm/sMV [id number] E/A Ratio1.4MVA (PHT)4.16cm2 TDI E/Lateral E'9.7E/Medial E'13.9 Tricuspid Valve TR P. Hygmrnzs559rt/sRAP PRFHUMEP9izMa TR Peak Gr.89vaYpIKCW55fzUt Pulmonary Vein S1 Yvryfgwz88.6cm/sD2 Lfnwxvnx25.2cm/s LEFT VENTRICLE The left ventricle is normal size. There is normal left ventricular wall thickness. The left ventricu lar systolic function is normal. The Ejection Fraction is 55-60%. There is normal LV segmental wall m otion. The left ventricular diastolic function and filling is normal for age. RIGHT VENTRICLE The right ventricle is normal size. The right ventricular systolic function is normal. ATRIA The left atrium size is normal. The right atrium size is normal. The interatrial septum is intact wit h no evidence for an atrial septal defect or patent foramen ovale as noted on 2-D or Doppler imaging. AORTIC VALVE The aortic valve is normal in structure and function. Doppler and Color Flow revealed no significant aortic regurgitation. There is no significant aortic valvular stenosis. MITRAL VALVE The mitral valve is normal in structure and function. There is no evidence of mitral valve prolapse. There is no mitral valve stenosis. Doppler and Color-flow revealed trace mitral regurgitation. TRICUSPID VALVE The tricuspid valve is normal in structure and function. Doppler and Color Flow revealed trace tricus pid regurgitation. The PA pressure was estimated at 26 mmHg. There is no tricuspid valve stenosis. PULMONIC VALVE The pulmonary valve is normal in structure and function. Doppler and Color Flow revealed trace pulmon ic valvular regurgitation. There is no pulmonic valvular stenosis. GREAT VESSELS The aortic root is normal in size. The ascending aorta is normal in size. The IVC is normal in size a nd collapses >50% with inspiration. PERICARDIAL EFFUSION There is no evidence of significant pericardial effusion. Critical Notification Critical Value: No <Conclusion> The left ventricular systolic function is normal. The Ejection Fraction is 55-60%. There is normal LV segmental wall motion. Trace mitral regurgitation. Trace tricuspid regurgitation. The PA pressure was estimated at 26 mmHg. There is no evidence of significant pericardial effusion.
[2017-02-07 19:55] VITALS: BP 115/75
[2017-02-07] MEDS: SIMVASTATIN 20 MG TABLET PO SCH (21:40)
[2017-02-07 23:00] VITALS: BP 138/79
[2017-02-08 02:50] VITALS: BP 141/86
[2017-02-08] MEDS: IV NORMAL SALINE 1000ML BAG 1,000 ML IV SCH ×2 (03:31→13:55)
[2017-02-08 06:14] LABS: BASO # 0.1 x10^3/uL (0.0-0.2); BASO % 1 % (0-3); EOS % 17 % (0-3); HEMATOCRIT 29.8 % (36.0-47.0); HEMOGLOBIN 9.7 g/dL (12.0-15.5); LYMPH # 2.4 x10^3/uL (1.0-4.8); LYMPH % 27 % (24-48); MEAN CORPUSCULAR HEMOGLOBIN 29 pg (25-35); MEAN CORPUSCULAR HGB CONC 33 g/dL (31-37); MEAN CORPUSCULAR VOLUME 89 fL (79-100); MONO % 4 % (0-9); NEUT % 52 % (31-73); PLATELET COUNT 291 x10^3/uL (140-400); RED BLOOD COUNT 3.35 x10^6/uL (3.50-5.40); RED CELL DISTRIBUTION WIDTH 13.1 % (11.5-14.5)
[2017-02-08 06:39] LABS: CALCIUM 8.2 mg/dL (8.5-10.1); CREATININE 1.3 mg/dL (0.6-1.0); GFR 44.1; POTASSIUM 4.2 mmol/L (3.5-5.1)
[2017-02-08 07:00] VITALS: BP 141/94
[2017-02-08] MEDS: INSULIN ASPART 300 UNITS/3 ML INSULN.PEN SQ SCH ×3 (08:00→17:00)
[2017-02-08] MEDS ORDERED: REGADENOSON 0.4 MG/5 ML DISP.SYRIN. IV ONE (08:45)
[2017-02-08 11:00] VITALS: BP 144/90
[2017-02-08] MEDS ORDERED: ONDANSETRON PF 4 MG/2 ML VIAL. IV PRN (11:15)
[2017-02-08] MEDS: METOPROLOL TART IMMED RELEASE 25 MG TABLET. PO SCH ×2 (11:27→20:00)
[2017-02-08] MEDS: ASPIRIN ENTERIC COATED 81 MG TABLET.DR. PO SCH (11:28)
[2017-02-08] MEDS ORDERED: ACETAMINOPHEN 325 MG TABLET. PO PRN (11:30)
--- NOTE | 2017-02-08 11:56 | PDOC ---
Renal-Progress Notes Subjective Notes Notes NONE History of Present Illness Hx of present illness STABLE Vitals Vitals Vital Signs Date Time Temp Pulse Resp B/P (MAP) Pulse Ox O2 Delivery O2 Flow Rate FiO2 02/08/17 11:27 90 141/94 02/08/17 07:00 98.3 19 100 Room Air 98.3 Weight Weight [ ] I.O. Intake and Output Intake and Output 02/08/17 07:00 Intake Total 1450 ml Output Total 475 ml Balance 975 ml Intake Oral 1450 ml Output Urine Total 475 ml Labs Labs Laboratory Tests Test 02/07/17 16:44 02/07/17 18:56 02/07/17 19:11 02/07/17 21:13 Glucose (Fingerstick) 164 mg/dL (70-99) 45 mg/dL (70-99) 146 mg/dL (70-99) 192 mg/dL (70-99) Test 02/08/17 05:10 02/08/17 08:34 White Blood Count 9.0 x10^3/uL (4.0-11.0) Red Blood Count 3.35 x10^6/uL (3.50-5.40) Hemoglobin 9.7 g/dL (12.0-15.5) Hematocrit 29.8 % (36.0-47.0) Mean Corpuscular Volume 89 fL (79-100) Mean Corpuscular Hemoglobin 29 pg (25-35) Mean Corpuscular Hemoglobin Concent 33 g/dL (31-37) Red Cell Distribution Width 13.1 % (11.5-14.5) Platelet Count 291 x10^3/uL (140-400) Neutrophils (%) (Auto) 52 % (31-73) Lymphocytes (%) (Auto) 27 % (24-48) Monocytes (%) (Auto) 4 % (0-9) Eosinophils (%) (Auto) 17 % (0-3) Basophils (%) (Auto) 1 % (0-3) Neutrophils # (Auto) 4.6 x10^3uL (1.8-7.7) Lymphocytes # (Auto) 2.4 x10^3/uL (1.0-4.8) Monocytes # (Auto) 0.4 x10^3/uL (0.0-1.1) Eosinophils # (Auto) 1.5 x10^3/uL (0.0-0.7) Basophils # (Auto) 0.1 x10^3/uL (0.0-0.2) Sodium Level 139 mmol/L (136-145) Potassium Level 4.2 mmol/L (3.5-5.1) Chloride Level 107 mmol/L (98-107) Carbon Dioxide Level 27 mmol/L (21-32) Anion Gap 5 (6-14) Blood Urea Nitrogen 18 mg/dL (7-20) Creatinine 1.3 mg/dL (0.6-1.0) Estimated GFR (Cockcroft-Gault) 44.1 Glucose Level 234 mg/dL (70-99) Calcium Level 8.2 mg/dL (8.5-10.1) Glucose (Fingerstick) 247 mg/dL (70-99) Micro Micro Microbiology 02/06/17 Urine Culture - Preliminary, Resulted 02/06/17 Urine Culture Result 1 (ABA) - Preliminary, Resulted Review of Systems Constitutional: yes: no symptom reported Physical Exam General Appearance: no apparent distress Skin: warm Respiratory: bilateral CTA Heart: S1S2, no thrills Abdomen: soft, bowel sounds present Extremities: pulses present Neurology: alert, oriented Assessment Assessment IMP CKD STAGE 3 CR STABLE AT 1.3 DM II HTN-NOT CONTROLLED CHEST PAIN PLAN DECREASE IVF RATE STRESS TEST TODAY BETA BLOCKERS ADDED TODAY CROW CORTEZ MD Feb 08, 2017 11:56
--- NOTE | 2017-02-08 13:03 | PDOC ---
PROGRESS NOTES Chief Complaint Chief Complaint Chest pain HTN Anemia Proteinuria CKD Stage 3- CR Stable at 1.3 DM II Gastroparesis Osteoarthritis History of Present Illness History of Present Illness Pt. 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 General: Alert, Oriented X3, Cooperative Heart: Regular rate, Normal S1, Normal S2 Lungs: Clear, Other (No crackles or wheezes) Abdomen: Normal bowel sounds, No tenderness Extremities: No clubbing, No cyanosis, No edema Skin: No rashes, No breakdown, No significant lesion Labs LABS Laboratory Tests Test 02/07/17 16:44 02/07/17 18:56 02/07/17 19:11 02/07/17 21:13 Glucose (Fingerstick) 164 mg/dL (70-99) 45 mg/dL (70-99) 146 mg/dL (70-99) 192 mg/dL (70-99) Test 02/08/17 05:10 02/08/17 08:34 02/08/17 12:20 White Blood Count 9.0 x10^3/uL (4.0-11.0) Red Blood Count 3.35 x10^6/uL (3.50-5.40) Hemoglobin 9.7 g/dL (12.0-15.5) Hematocrit 29.8 % (36.0-47.0) Mean Corpuscular Volume 89 fL (79-100) Mean Corpuscular Hemoglobin 29 pg (25-35) Mean Corpuscular Hemoglobin Concent 33 g/dL (31-37) Red Cell Distribution Width 13.1 % (11.5-14.5) Platelet Count 291 x10^3/uL (140-400) Neutrophils (%) (Auto) 52 % (31-73) Lymphocytes (%) (Auto) 27 % (24-48) Monocytes (%) (Auto) 4 % (0-9) Eosinophils (%) (Auto) 17 % (0-3) Basophils (%) (Auto) 1 % (0-3) Neutrophils # (Auto) 4.6 x10^3uL (1.8-7.7) Lymphocytes # (Auto) 2.4 x10^3/uL (1.0-4.8) Monocytes # (Auto) 0.4 x10^3/uL (0.0-1.1) Eosinophils # (Auto) 1.5 x10^3/uL (0.0-0.7) Basophils # (Auto) 0.1 x10^3/uL (0.0-0.2) Sodium Level 139 mmol/L (136-145) Potassium Level 4.2 mmol/L (3.5-5.1) Chloride Level 107 mmol/L (98-107) Carbon Dioxide Level 27 mmol/L (21-32) Anion Gap 5 (6-14) Blood Urea Nitrogen 18 mg/dL (7-20) Creatinine 1.3 mg/dL (0.6-1.0) Estimated GFR (Cockcroft-Gault) 44.1 Glucose Level 234 mg/dL (70-99) Calcium Level 8.2 mg/dL (8.5-10.1) Glucose (Fingerstick) 247 mg/dL (70-99) 369 mg/dL (70-99) Review of Systems Review of Systems Gen: Denies F/C GI: Admits to nausea and vomiting NEURO: Denies confusion, dizziness MSK: Admits to weakness Assessment and Plan Assessmemt and Plan Problems Medical Problems: (1) Acute renal failure Status: Acute (2) Chest pain Status: Acute (3) Hyperglycemia Status: Acute (4) Tachycardia Status: Acute Assessment: Chest pain HTN Anemia Proteinuria CKD Stage 3- CR Stable at 1.3 DM II Gastroparesis Osteoarthritis Plan: Zofran 4mg prn ordered Awaiting results from Lexiscan stress test Continue cardiac monitoring Continue home medications Continue PT/OT Recheck labs in am Problems: Comment Review of Relevant I have reviewed the following items minnie (where applicable) has been applied. Labs Laboratory Tests Test 02/06/17 20:20 02/06/17 21:00 02/06/17 21:01 02/06/17 22:29 White Blood Count 8.1 x10^3/uL (4.0-11.0) Red Blood Count 3.47 x10^6/uL (3.50-5.40) Hemoglobin 10.3 g/dL (12.0-15.5) Hematocrit 31.3 % (36.0-47.0) Mean Corpuscular Volume 90 fL (79-100) Mean Corpuscular Hemoglobin 30 pg (25-35) Mean Corpuscular Hemoglobin Concent 33 g/dL (31-37) Red Cell Distribution Width 13.0 % (11.5-14.5) Platelet Count 308 x10^3/uL (140-400) Neutrophils (%) (Auto) 55 % (31-73) Lymphocytes (%) (Auto) 25 % (24-48) Monocytes (%) (Auto) 5 % (0-9) Eosinophils (%) (Auto) 15 % (0-3) Basophils (%) (Auto) 1 % (0-3) Neutrophils # (Auto) 4.5 x10^3uL (1.8-7.7) Lymphocytes # (Auto) 2.0 x10^3/uL (1.0-4.8) Monocytes # (Auto) 0.4 x10^3/uL (0.0-1.1) Eosinophils # (Auto) 1.2 x10^3/uL (0.0-0.7) Basophils # (Auto) 0.1 x10^3/uL (0.0-0.2) Prothrombin Time 11.8 SEC (11.7-14.0) Prothromb Time International Ratio 0.9 (0.8-1.1) Activated Partial Thromboplast Time 25 SEC (24-38) D-Dimer (Mara) 0.61 ug/mlFEU (0.00-0.50) Sodium Level 133 mmol/L (136-145) Potassium Level 4.3 mmol/L (3.5-5.1) Chloride Level 99 mmol/L (98-107) Carbon Dioxide Level 27 mmol/L (21-32) Anion Gap 7 (6-14) Blood Urea Nitrogen 28 mg/dL (7-20) Creatinine 1.9 mg/dL (0.6-1.0) Estimated GFR (Cockcroft-Gault) 28.5 BUN/Creatinine Ratio 15 (6-20) Glucose Level 338 mg/dL (70-99) Calcium Level 8.5 mg/dL (8.5-10.1) Magnesium Level 2.0 mg/dL (1.8-2.4) Total Bilirubin 0.1 mg/dL (0.2-1.0) Aspartate Amino Transf (AST/SGOT) 12 U/L (15-37) Alanine Aminotransferase (ALT/SGPT) 15 U/L (14-59) Alkaline Phosphatase 101 U/L (46-116) Troponin I Quantitative < 0.017 ng/mL (0.000-0.055) LB-Wpx-Q-Type Natriuretic Peptide 268 pg/mL (0-124) Total Protein 6.9 g/dL (6.4-8.2) Albumin 2.5 g/dL (3.4-5.0) Albumin/Globulin Ratio 0.6 (1.0-1.7) Urine Collection Type Unknown Urine Color Yellow Urine Clarity Clear Urine pH 6.5 Urine Specific Verdi 1.020 Urine Protein >=300 mg/dL (NEG-TRACE) Urine Glucose (UA) >=1000 mg/dL (NEG) Urine Ketones (Stick) Negative mg/dL (NEG) Urine Blood Small (NEG) Urine Nitrite Negative (NEG) Urine Bilirubin Negative (NEG) Urine Urobilinogen Dipstick 0.2 mg/dL (0.2 mg/dL) Urine Leukocyte Esterase Negative (NEG) Urine RBC 3-5 /HPF (0-2) Urine WBC 20-40 /HPF (0-4) Urine Squamous Epithelial Cells Mod /LPF Urine Bacteria Many /HPF (0-FEW) Bedside Urine HCG, Qualitative Hcg negative (Negative) Glucose (Fingerstick) 344 mg/dL (70-99) Test 02/07/17 01:51 02/07/17 02:05 02/07/17 04:00 02/07/17 07:11 Glucose (Fingerstick) 57 mg/dL (70-99) 73 mg/dL (70-99) 374 mg/dL (70-99) White Blood Count 9.1 x10^3/uL (4.0-11.0) Red Blood Count 3.19 x10^6/uL (3.50-5.40) Hemoglobin 9.4 g/dL (12.0-15.5) Hematocrit 28.4 % (36.0-47.0) Mean Corpuscular Volume 89 fL (79-100) Mean Corpuscular Hemoglobin 30 pg (25-35) Mean Corpuscular Hemoglobin Concent 33 g/dL (31-37) Red Cell Distribution Width 13.0 % (11.5-14.5) Platelet Count 279 x10^3/uL (140-400) Neutrophils (%) (Auto) 60 % (31-73) Lymphocytes (%) (Auto) 21 % (24-48) Monocytes (%) (Auto) 6 % (0-9) Eosinophils (%) (Auto) 13 % (0-3) Basophils (%) (Auto) 1 % (0-3) Neutrophils # (Auto) 5.4 x10^3uL (1.8-7.7) Lymphocytes # (Auto) 1.9 x10^3/uL (1.0-4.8) Monocytes # (Auto) 0.5 x10^3/uL (0.0-1.1) Eosinophils # (Auto) 1.2 x10^3/uL (0.0-0.7) Basophils # (Auto) 0.0 x10^3/uL (0.0-0.2) Segmented Neutrophils % 64 % (35-66) Band Neutrophils % 2 % (0-9) Lymphocytes % 19 % (24-48) Monocytes % 5 % (0-10) Eosinophils % 10 % (0-5) Platelet Estimate Adequate (ADEQUATE) Sodium Level 137 mmol/L (136-145) Potassium Level 4.0 mmol/L (3.5-5.1) Chloride Level 103 mmol/L (98-107) Carbon Dioxide Level 26 mmol/L (21-32) Anion Gap 8 (6-14) Blood Urea Nitrogen 27 mg/dL (7-20) Creatinine 1.6 mg/dL (0.6-1.0) Estimated GFR (Cockcroft-Gault) 34.7 Glucose Level 205 mg/dL (70-99) Hemoglobin A1c 11.4 % (4.8-5.6) Calcium Level 7.9 mg/dL (8.5-10.1) Troponin I Quantitative < 0.017 ng/mL (0.000-0.055) Triglycerides Level 132 mg/dL (0-150) Cholesterol Level 196 mg/dL (0-200) LDL Cholesterol, Calculated 124 mg/dL (0-100) VLDL Cholesterol, Calculated 26 mg/dL (0-40) Non-HDL Cholesterol Calculated 150 mg/dL (0-129) HDL Cholesterol 46 mg/dL (40-60) Cholesterol/HDL Ratio 4.3 Test 02/07/17 10:05 02/07/17 10:19 02/07/17 16:44 02/07/17 18:56 Troponin I Quantitative < 0.017 ng/mL (0.000-0.055) Glucose (Fingerstick) 325 mg/dL (70-99) 164 mg/dL (70-99) 45 mg/dL (70-99) Test 02/07/17 19:11 02/07/17 21:13 02/08/17 05:10 02/08/17 08:34 Glucose (Fingerstick) 146 mg/dL (70-99) 192 mg/dL (70-99) 247 mg/dL (70-99) White Blood Count 9.0 x10^3/uL (4.0-11.0) Red Blood Count 3.35 x10^6/uL (3.50-5.40) Hemoglobin 9.7 g/dL (12.0-15.5) Hematocrit 29.8 % (36.0-47.0) Mean Corpuscular Volume 89 fL (79-100) Mean Corpuscular Hemoglobin 29 pg (25-35) Mean Corpuscular Hemoglobin Concent 33 g/dL (31-37) Red Cell Distribution Width 13.1 % (11.5-14.5) Platelet Count 291 x10^3/uL (140-400) Neutrophils (%) (Auto) 52 % (31-73) Lymphocytes (%) (Auto) 27 % (24-48) Monocytes (%) (Auto) 4 % (0-9) Eosinophils (%) (Auto) 17 % (0-3) Basophils (%) (Auto) 1 % (0-3) Neutrophils # (Auto) 4.6 x10^3uL (1.8-7.7) Lymphocytes # (Auto) 2.4 x10^3/uL (1.0-4.8) Monocytes # (Auto) 0.4 x10^3/uL (0.0-1.1) Eosinophils # (Auto) 1.5 x10^3/uL (0.0-0.7) Basophils # (Auto) 0.1 x10^3/uL (0.0-0.2) Sodium Level 139 mmol/L (136-145) Potassium Level 4.2 mmol/L (3.5-5.1) Chloride Level 107 mmol/L (98-107) Carbon Dioxide Level 27 mmol/L (21-32) Anion Gap 5 (6-14) Blood Urea Nitrogen 18 mg/dL (7-20) Creatinine 1.3 mg/dL (0.6-1.0) Estimated GFR (Cockcroft-Gault) 44.1 Glucose Level 234 mg/dL (70-99) Calcium Level 8.2 mg/dL (8.5-10.1) Test 02/08/17 12:20 Glucose (Fingerstick) 369 mg/dL (70-99) Laboratory Tests Test 02/07/17 16:44 02/07/17 18:56 02/07/17 19:11 02/07/17 21:13 Glucose (Fingerstick) 164 mg/dL (70-99) 45 mg/dL (70-99) 146 mg/dL (70-99) 192 mg/dL (70-99) Test 02/08/17 05:10 02/08/17 08:34 02/08/17 12:20 White Blood Count 9.0 x10^3/uL (4.0-11.0) Red Blood Count 3.35 x10^6/uL (3.50-5.40) Hemoglobin 9.7 g/dL (12.0-15.5) Hematocrit 29.8 % (36.0-47.0) Mean Corpuscular Volume 89 fL (79-100) Mean Corpuscular Hemoglobin 29 pg (25-35) Mean Corpuscular Hemoglobin Concent 33 g/dL (31-37) Red Cell Distribution Width 13.1 % (11.5-14.5) Platelet Count 291 x10^3/uL (140-400) Neutrophils (%) (Auto) 52 % (31-73) Lymphocytes (%) (Auto) 27 % (24-48) Monocytes (%) (Auto) 4 % (0-9) Eosinophils (%) (Auto) 17 % (0-3) Basophils (%) (Auto) 1 % (0-3) Neutrophils # (Auto) 4.6 x10^3uL (1.8-7.7) Lymphocytes # (Auto) 2.4 x10^3/uL (1.0-4.8) Monocytes # (Auto) 0.4 x10^3/uL (0.0-1.1) Eosinophils # (Auto) 1.5 x10^3/uL (0.0-0.7) Basophils # (Auto) 0.1 x10^3/uL (0.0-0.2) Sodium Level 139 mmol/L (136-145) Potassium Level 4.2 mmol/L (3.5-5.1) Chloride Level 107 mmol/L (98-107) Carbon Dioxide Level 27 mmol/L (21-32) Anion Gap 5 (6-14) Blood Urea Nitrogen 18 mg/dL (7-20) Creatinine 1.3 mg/dL (0.6-1.0) Estimated GFR (Cockcroft-Gault) 44.1 Glucose Level 234 mg/dL (70-99) Calcium Level 8.2 mg/dL (8.5-10.1) Glucose (Fingerstick) 247 mg/dL (70-99) 369 mg/dL (70-99) Microbiology 02/06/17 Urine Culture - Preliminary, Resulted 02/06/17 Urine Culture Result 1 (ABA) - Preliminary, Resulted Medications Current Medications Sodium Chloride 1,000 ml @ 1,000 mls/hr 1X ONCE IV Last administered on 02/06 21:53; Start 02/06/17 at 22:00; Stop 02/06/17 at 22:59; Status DC Aspirin (Adelaida Aspirin) 325 mg 1X ONCE PO Last administered on 02/06/17 21: 51; Start 02/06/17 at 22:00; Stop 02/06/17 at 22:01; Status DC Nitroglycerin (Nitrostat) 0.4 mg PRN Q5MIN PRN SL CHEST PAIN Last administered on 02/06/17 21:51; Start 02/06/17 at 21:45; Stop 02/06/17 at 22:14; Status DC Morphine Sulfate 4 mg PRN Q15MIN PRN IV/SQ PAIN GREATER THAN 3/10; Start 02/06 at 21:45; Stop 02/07/17 at 21:44; Status DC Ondansetron HCl (Zofran) 4 mg PRN Q8HRS PRN IV NAUSEA/VOMITING; Start at 22:15; Stop 02/07/17 at 22:14; Status DC Morphine Sulfate 4 mg PRN Q2HR PRN IV SEVERE PAIN; Start 02/06/17 at 22:15; Stop 02/07/17 at 22:14; Status DC Acetaminophen (Tylenol) 650 mg PRN Q4HRS PRN PO FEVER Last administered on 17:31; Start 02/06/17 at 22:15; Stop 02/07/17 at 22:14; Status DC Nitroglycerin (Nitrostat) 0.4 mg PRN Q5MIN PRN SL CHEST PAIN; Start 02/06/17 at 22:15; Stop 02/07/17 at 22:14; Status DC Insulin Aspart (NovoLOG) 0-7 UNITS TIDWMEALS SQ Last administered on 17:42; Start 02/07/17 at 08:00 Dextrose (Dextrose 50%-Water Syringe) 12.5 gm PRN Q15MIN PRN IV SEE COMMENTS Last administered on 02/07/17 19:01; Start 02/06/17 at 22:15 Insulin Aspart (NovoLOG) 20 units 1X ONCE SQ Last administered on 02/06/17 23:38; Start 02/06/17 at 23:30; Stop 02/06/17 at 23:31; Status DC Info (Do NOT chart on this placeholder) 1 each 1X ONCE MC ; Start 02/07/17 at 09:00; Stop 02/07/17 at 09:01; Status UNV Influenza Virus Vaccine Quadrival (Fluarix Quad [id number] Syringe) 0.5 ml ONCE ONCE VAX IM Last administered on 02/07/17 17:41; Start 02/07/17 at 09:00; Stop 02/07/17 at 09:01; Status DC Aspirin (Ecotrin) 81 mg [id number] PO Last administered on 02/08/17 11:28; Start 02/07/17 at 09:30 Metoprolol Tartrate (Lopressor) 25 mg BID PO Last administered on 02/08/17 11 :27; Start 02/07/17 at 10:00 Sodium Chloride 1,000 ml @ 75 mls/hr [id number] IV Last administered on 03:31; Start 02/07/17 at 11:15 Simvastatin (Zocor) 20 mg HS PO Last administered on 02/07/17 21:40; Start 02/07/17 at 21:00 Regadenoson (Lexiscan) 0.4 mg 1X ONCE IV Last administered on 02/08/17 10:05 ; Start 02/08/17 at 08:45; Stop 02/08/17 at 08:46; Status DC Ondansetron HCl (Zofran) 4 mg PRN Q6HRS PRN IV NAUSEA/VOMITING Last administered on 02/08/17 11:28; Start 02/08/17 at 11:15 Acetaminophen (Tylenol) 650 mg PRN Q6HRS PRN PO HEADACHE Last administered on 02/08/17 11:37; Start 02/08/17 at 11:30 Active Scripts Active Reported Metformin Hcl 1,000 Mg Tablet 1,000 Mg PO BIDWMEALS Lisinopril 40 Mg Tablet 1 Tab PO DAILY Vitals/I & O Vital Sign - Last 24 Hours 02/07/17 02/07/17 02/07/17 02/07/17 15:00 19:55 20:00 21:41 Temp 98.1 98.2 98.1 98.2 Pulse 91 98 93 Resp 19 18 B/P (MAP) 113/72 (86) 115/75 (88) 142/79 Pulse Ox 98 99 O2 Delivery Room Air Room Air Room Air 02/07/17 02/08/17 02/08/17 02/08/17 23:00 02:50 07:00 11:00 Temp 98.1 98.3 98.3 98.1 98.1 98.3 98.3 98.1 Pulse 96 88 90 100 Resp 18 18 19 19 B/P (MAP) 138/79 (98) 141/86 (104) 141/94 (110) 144/90 (108) Pulse Ox 97 97 100 98 O2 Delivery Room Air Room Air Room Air Room Air 02/08/17 11:27 Pulse 90 B/P (MAP) 141/94 Intake and Output 02/07/17 02/07/17 02/08/17 15:00 23:00 07:00 Intake Total 900 ml 550 ml Output Total 475 ml Balance 425 ml 550 ml SUMEET GREEN III DO Feb 08, 2017 13:03
--- NOTE | 2017-02-08 13:50 | RAD ---
APPROVED REPORT Test Type: Pharmacological Stress Nurse/Tech: scarlett nuñez Test Indications: CHEST PAIN Cardiac History: HTN, SEE EHR Medications: SEE EHR Medical History: DIABETES, SEE EHR Resting ECG: SR Resting Heart Rate: 91 bpm Resting Blood Pressure: 149/91mmHg Pretest Chest Pain: No chest pain Nurse/Tech Notes NO RESPIRATORY DISTRESS, NO CHEST PAIN. Consent: The procedure was explained to the patient in lay terms. Informed consent was witnessed. Gurmeet eout was entered into [employer]. History and Stress Test performed by RT Bridgette (R) (N) Pharm. Details Pharmacologic stress testing was performed using 0.4mg per 5ml of regadenoson given intravenously ove r 7-10 seconds. Stress Symptoms BODY FATIGUE, HEADACHE, NAUSEA, SEE EHR POST EXERCISE Reason for Termination: Infusion complete Max HR: 119 bpm Max Blood Pressure: 149/91mmHg Chest Pain: No. Arrhythmia: No. ST Change: No. INTERPRETATION Stress EKG Conclusion: Baseline EKG showed sinus rhythm. No ischemic changes at peak stress. No arr hythmias. Imaging Protocol IMAGE PROTOCOL: Rest Tc-99m/stress Tc-99m 1 day Rest: Stress: Viability: Radiopharm.Tc99m IsnrxjnjaLb91c Sestamibi Dose11.1mCi 33mCi Img Date 02/08/2017 02/08/2017 Inj-Img Vsqa33pwv. 90min. Rest Admin Site:IV - Left AntecubitalAdministrator:JESÚS Calderon Stress Admin Site: IV - Left AntecubitalAdministrator: RT Bridgette (R)(N) STRESS DATA End Diast. Vol.86.0mlAv. Heart Rate98.0bpm End Syst. Vol.25.0mlCO Index BSA0.0L/min Myocardial Xksq335.0gEject. Ooveepye14.0% Stress Rates Pk. Fill Rate3.63EDV/secLVtime Pk. Fill 133.41msec Pk. Empty Rate5.45ESV/secLVtime Pk. Cltgx844.92msec 03/16 Pk. Fill1.31EDV/sec Stress Scores Regional WT0.00Summed WT4.00 Regional WM0.00Summed WM1.00 Study quality was good. Left Ventricular size was Normal at Rest and Stress. Lung uptake was Normal. Left Ventricular ejection fraction is 71%. The rest and stress images show normal perfusion, normal contraction and thickening. LV Perf. Quant 17 Seg. SSS0.00 17 Seg. SRS0.00 17 Seg. SDS0.00 Stress Defect Extent (% LAD)0.00Rest Defect Extent (% LAD)0.00Rev. Defect Extent (% LAD)0.00 Stress Defect Extent (% LCX) 0.00Rest Defect Extent (% LCX)0.00Rev. Defect Extent (% LCX)0.00 Stress Defect Extent (% RCA)0.00Rest Defect Extent (% RCA)0.00Rev. Defect Extent (% RCA)0.00 Stress Defect Extent (% CEDRICK)0.00Rest Defect Extent (% CEDRICK)0.00Rev. Defect Extent (% CEDRICK)0.00 Conclusion 1. Regadenoson cardioisotope stress test did not show any evidence of ischemia or infarct. 2. Normal left ventricular systolic function with ejection fraction calculated at 71%. 3. Low risk for cardiac events.
--- NOTE | 2017-02-08 15:27 | PDOC ---
EUGENIO ARMENTA PAGE DESIGNER 02/08/17 1527: CARDIO Progress Notes Date and Time Date of Service 02/08/2017 Time of Evaluation 1520 Subjective Subjective: No Chest Pain, No shortness of breath, No Palpitations Vitals Vitals Vital Signs Date Time Temp Pulse Resp B/P (MAP) Pulse Ox O2 Delivery O2 Flow Rate FiO2 02/08/17 11:27 90 141/94 02/08/17 11:00 98.1 19 98 Room Air 98.1 Weight Weight [ ] Input and Output Intake and Output Intake and Output 02/08/17 07:00 Intake Total 1450 ml Output Total 475 ml Balance 975 ml Intake Oral 1450 ml Output Urine Total 475 ml Laboratory Labs Laboratory Tests Test 02/07/17 16:44 02/07/17 18:56 02/07/17 19:11 02/07/17 21:13 Glucose (Fingerstick) 164 mg/dL (70-99) 45 mg/dL (70-99) 146 mg/dL (70-99) 192 mg/dL (70-99) Test 02/08/17 05:10 02/08/17 08:34 02/08/17 12:20 White Blood Count 9.0 x10^3/uL (4.0-11.0) Red Blood Count 3.35 x10^6/uL (3.50-5.40) Hemoglobin 9.7 g/dL (12.0-15.5) Hematocrit 29.8 % (36.0-47.0) Mean Corpuscular Volume 89 fL (79-100) Mean Corpuscular Hemoglobin 29 pg (25-35) Mean Corpuscular Hemoglobin Concent 33 g/dL (31-37) Red Cell Distribution Width 13.1 % (11.5-14.5) Platelet Count 291 x10^3/uL (140-400) Neutrophils (%) (Auto) 52 % (31-73) Lymphocytes (%) (Auto) 27 % (24-48) Monocytes (%) (Auto) 4 % (0-9) Eosinophils (%) (Auto) 17 % (0-3) Basophils (%) (Auto) 1 % (0-3) Neutrophils # (Auto) 4.6 x10^3uL (1.8-7.7) Lymphocytes # (Auto) 2.4 x10^3/uL (1.0-4.8) Monocytes # (Auto) 0.4 x10^3/uL (0.0-1.1) Eosinophils # (Auto) 1.5 x10^3/uL (0.0-0.7) Basophils # (Auto) 0.1 x10^3/uL (0.0-0.2) Sodium Level 139 mmol/L (136-145) Potassium Level 4.2 mmol/L (3.5-5.1) Chloride Level 107 mmol/L (98-107) Carbon Dioxide Level 27 mmol/L (21-32) Anion Gap 5 (6-14) Blood Urea Nitrogen 18 mg/dL (7-20) Creatinine 1.3 mg/dL (0.6-1.0) Estimated GFR (Cockcroft-Gault) 44.1 Glucose Level 234 mg/dL (70-99) Calcium Level 8.2 mg/dL (8.5-10.1) Glucose (Fingerstick) 247 mg/dL (70-99) 369 mg/dL (70-99) Microbiology Micro Microbiology 02/06/17 Urine Culture - Preliminary, Resulted 02/06/17 Urine Culture Result 1 (ABA) - Preliminary, Resulted Review of Systems Constitutional: yes: no symptom reported Physical Exam HEENT: Neck Supple W Full Motion Chest: Symmetric LUNGS: Clear to Auscultation Heart: S1S2, RRR (SR) Abdomen: Soft N/T Extremities: No Calf Tenderness Neurology: alert, oriented, follow commands Assessment Assessment 1. Chest pain: AMI ruled out. possibly GI. MPI neg for reversible defects. TTE with normal EF and wall motion. 2. CKD3: per nephrology 3. 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 A1C 11.3 4. Anemia of chronic disease 5. Hx of gastroparesis Recommendations 1. Discussed better BG controlled. diet modification and optimization 2. Losartan/HCTZ once ok with renal. Continue with metoprolol 3. Optimize BG control per PCP. Tailor made Rx with [facility] 4$, continue with ASA and statin 4. May DC per cardiac standpoint. WINNIE STERLING MD 02/09/17 1003: CARDIO Progress Notes Assessment Assessment Patient seen and examined 02/08/17. Agree with [employer]ER [employer]'s assessment and plan. Echo without any WMA and MPI negative for ischemia. OK for DC from cardiac standpoint. EUGENIO ARMENTA APRN Feb 08, 2017 15:27 WINNIE STERLING MD Feb 09, 2017 10:03
[2017-02-08 19:00] VITALS: BP 159/95
[2017-02-08] MEDS: SIMVASTATIN 20 MG TABLET PO SCH (20:00)
[2017-02-08 23:15] VITALS: BP 151/87
[2017-02-09 02:50] VITALS: BP 156/94
[2017-02-09] MEDS: IV NORMAL SALINE 1000ML BAG 1,000 ML IV SCH (06:05)
[2017-02-09 06:06] LABS: BASO % 1 % (0-3); EOS % 21 % (0-3); HEMATOCRIT 31.1 % (36.0-47.0); HEMOGLOBIN 10.3 g/dL (12.0-15.5); LYMPH # 2.1 x10^3/uL (1.0-4.8); LYMPH % 23 % (24-48); MEAN CORPUSCULAR HEMOGLOBIN 30 pg (25-35); MEAN CORPUSCULAR HGB CONC 33 g/dL (31-37); MEAN CORPUSCULAR VOLUME 89 fL (79-100); MONO % 5 % (0-9); NEUT % 50 % (31-73); PLATELET COUNT 289 x10^3/uL (140-400); RED BLOOD COUNT 3.48 x10^6/uL (3.50-5.40); RED CELL DISTRIBUTION WIDTH 13.2 % (11.5-14.5); WHITE BLOOD COUNT 8.9 x10^3/uL (4.0-11.0)
[2017-02-09 06:40] LABS: CALCIUM 8.4 mg/dL (8.5-10.1); CREATININE 1.5 mg/dL (0.6-1.0); GFR 37.4; POTASSIUM 4.1 mmol/L (3.5-5.1)
[2017-02-09 07:15] VITALS: BP 143/85
[2017-02-09] MEDS: METOPROLOL TART IMMED RELEASE 25 MG TABLET. PO SCH (08:47)
[2017-02-09] MEDS: ASPIRIN ENTERIC COATED 81 MG TABLET.DR. PO SCH (08:47)
[2017-02-09] MEDS: INSULIN ASPART 300 UNITS/3 ML INSULN.PEN SQ SCH ×3 (08:49→17:00)
[2017-02-09 11:00] VITALS: BP 152/95
--- NOTE | 2017-02-09 11:19 | PDOC ---
Renal-Progress Notes Subjective Notes Notes NONE History of Present Illness Hx of present illness STABLE Vitals Vitals Vital Signs Date Time Temp Pulse Resp B/P (MAP) Pulse Ox O2 Delivery O2 Flow Rate FiO2 02/09/17 11:00 98.6 91 18 152/95 (114) 98 Room Air 98.6 Weight Weight [ ] I.O. Intake and Output Intake and Output 02/09/17 06:59 Intake Total 2861 ml Output Total 2800 ml Balance 61 ml Intake Oral 2060 ml IV Total 801 ml Output Urine Total 2800 ml Labs Labs Laboratory Tests Test 02/08/17 12:20 02/08/17 17:06 02/08/17 20:30 02/09/17 05:50 Glucose (Fingerstick) 369 mg/dL (70-99) 287 mg/dL (70-99) 141 mg/dL (70-99) White Blood Count 8.9 x10^3/uL (4.0-11.0) Red Blood Count 3.48 x10^6/uL (3.50-5.40) Hemoglobin 10.3 g/dL (12.0-15.5) Hematocrit 31.1 % (36.0-47.0) Mean Corpuscular Volume 89 fL (79-100) Mean Corpuscular Hemoglobin 30 pg (25-35) Mean Corpuscular Hemoglobin Concent 33 g/dL (31-37) Red Cell Distribution Width 13.2 % (11.5-14.5) Platelet Count 289 x10^3/uL (140-400) Neutrophils (%) (Auto) 50 % (31-73) Lymphocytes (%) (Auto) 23 % (24-48) Monocytes (%) (Auto) 5 % (0-9) Eosinophils (%) (Auto) 21 % (0-3) Basophils (%) (Auto) 1 % (0-3) Neutrophils # (Auto) 4.5 x10^3uL (1.8-7.7) Lymphocytes # (Auto) 2.1 x10^3/uL (1.0-4.8) Monocytes # (Auto) 0.4 x10^3/uL (0.0-1.1) Eosinophils # (Auto) 1.9 x10^3/uL (0.0-0.7) Basophils # (Auto) 0.0 x10^3/uL (0.0-0.2) Sodium Level 134 mmol/L (136-145) Potassium Level 4.1 mmol/L (3.5-5.1) Chloride Level 105 mmol/L (98-107) Carbon Dioxide Level 25 mmol/L (21-32) Anion Gap 4 (6-14) Blood Urea Nitrogen 20 mg/dL (7-20) Creatinine 1.5 mg/dL (0.6-1.0) Estimated GFR (Cockcroft-Gault) 37.4 Glucose Level 201 mg/dL (70-99) Calcium Level 8.4 mg/dL (8.5-10.1) Test 02/09/17 07:20 Glucose (Fingerstick) 227 mg/dL (70-99) Micro Micro Microbiology 02/06/17 Urine Culture - Final, Complete 02/06/17 Urine Culture Result 1 (ABA) - Final, Complete 02/06/17 Antimicrobic Susceptibility - Final, Complete Review of Systems Constitutional: yes: no symptom reported Physical Exam General Appearance: no apparent distress Skin: warm Respiratory: bilateral CTA Heart: S1S2, no thrills Abdomen: soft, bowel sounds present Extremities: pulses present Neurology: alert, oriented, follow commands Assessment Assessment IMP CKD STAGE 3 CR STABLE AT 1.5 DM II HTN CHEST PAIN PLAN STOP IVF'S OK WITH ARB WILL SIGN OFF CROW CORTEZ MD Feb 09, 2017 11:19
[2017-02-09 15:05] VITALS: BP 137/80
[2017-02-09] MEDS ORDERED: ASPI-612 PO (16:38)
[2017-02-09] MEDS ORDERED: METO25TA4 PO (16:38)
[2017-02-09] MEDS ORDERED: AMOX1TAB61 PO (16:38)
[2017-02-09] MEDS ORDERED: PRAV20TA2 PO (17:05)
--- NOTE | 2017-02-10 19:15 | DS ---
DATE OF DISCHARGE: 02/09/2017 CHIEF COMPLAINT: Chest pain. HOSPITAL COURSE: The patient is a 46-year-old woman who had presented to the Emergency Room with chest pain. She was ruled out for acute coronary syndrome with serial enzymes. Cardiology was consulted and a myocardial perfusion imaging stress test was obtained, which did not reveal any reversible defects. Echocardiogram likewise showed a normal EF and wall motion. The pain was attributed to probable GERD. Other issues were diabetes, which clearly was poorly controlled. A1c was 11.3. Regimen was adjusted and diabetic diet was discussed with patient. The patient complained of dysuria and was indeed diagnosed with UTI with sensitive E. coli and was discharged with a prescription for Augmentin for 5 days. PHYSICAL EXAM: VS: stable GEN: A&O, NAD CV: RRR PULM: clear ABD BS+ EXTR: no edema DISCHARGE DIAGNOSES: Chest pain, gastroesophageal reflux disease and urinary tract infection. DISCHARGE DISPOSITION: To home. DISCHARGE CONDITION: Improved. DISCHARGE MEDICATIONS: Please refer to MAR. DISCHARGE INSTRUCTIONS: The patient will follow up with PCP ONIEL. CALLUM ZARATE MD DR: NUSRAT/nts JOB#: [id number] / [id number] VIVI
== END 2017-02-09 18:05 | disposition home or self-care (01) | DRG 392 ==
LOC: ER 20:14 → 2 NORTH 21:29
PROVIDERS: ADMIT Internal Medicine; ATTEND Internal Medicine
DX: K21.9 Gastro-esophageal reflux disease without esophagitis (principal); E11.22 Type 2 diabetes mellitus with diabetic chronic kidney disease; E11.649 Type 2 diabetes mellitus with hypoglycemia without coma; N17.9 Acute kidney failure, unspecified; N18.3 Chronic kidney disease, stage 3 (moderate); N39.0 Urinary tract infection, site not specified; K31.84 Gastroparesis; E11.43 Type 2 diabetes mellitus with diabetic autonomic (poly)neuropathy; B96.20 Unspecified Escherichia coli [E. coli] as the cause of diseases classified elsewhere; R07.9 Chest pain, unspecified; D63.8 Anemia in other chronic diseases classified elsewhere; E11.65 Type 2 diabetes mellitus with hyperglycemia; I12.9 Hypertensive chronic kidney disease with stage 1 through stage 4 chronic kidney disease, or unspecified chronic kidney disease; M19.90 Unspecified osteoarthritis, unspecified site; I25.2 Old myocardial infarction; Z87.442 Personal history of urinary calculi; Z23 Encounter for immunization; Z83.3 Family history of diabetes mellitus; Z82.49 Family history of ischemic heart disease and other diseases of the circulatory system
CPT/HCPCS: 36415; 71010; 78452; 78582; 80048; 80053; 80061; 81001; 81025; 82962; 83036; 83735; 83880; 84484; 85007; 85025; 85379; 85610; 85730; 87086; 87186; 90686; 93005; 93017; 93306; 93971; 96360; 96374; 96375; 96376; A9500; A9540; A9558; J1815; J2405; J2785; J7030; J7042; 97116; 99285-25

== ENCOUNTER 2018-07-30 16:33 | Emergency (ER) | payer SELFPAY ==
[~2018-07-30] VITALS: Ht 157.5 cm; Wt 77.1 kg
[~2018-07-30 16:33] MED LIST changes: +AMOX1TAB61 PO; +ASPI-612 PO; -HYDR-2758 PO; +HYDR-2761 PO; +LISI-130 PO; +METF10007 PO; +METO25TA4 PO; +PRAV20TA2 PO
[2018-07-30 16:59] VITALS: BP 157/86
[2018-07-30] MEDS ORDERED: LIDOCAINE WITH 8.4% SOD BICARB 3 ML DISP.SYRIN. INJ ONE (17:30)
--- NOTE | 2018-07-30 17:57 | PHYS DOC ---
Past Medical History Past Medical History: Diabetes-Type II, Hypertension (MARTHA GONZALES APRN) Past Surgical History: (MARTHA GONZALES APRN) Alcohol Use: Occasionally Drug Use: None (MARTHA GONZALES APRN) Adult General Chief Complaint Chief Complaint: ABSCESS HPI HPI Patient is a 47 year old female with history of diabetes type 2, hypertension, who presents today with an abscess on the left inner thigh that began 4 days ago. Patient denies any fever. (MARTHA GONZALES APRN) Review of Systems Review of Systems Constitutional: Denies fever or chills [] Musculoskeletal: Denies back pain or joint pain [] Integument: Reports an abscess to the left inner thigh. Neurologic: Denies headache, focal weakness or sensory changes [] All other systems were reviewed and found to be within normal limits, except as documented in this note. (MARTHA GONZALES APRN) Current Medications Current Medications Current Medications Medications (Trade) Dose Ordered Sig/Jorge Start Time Stop Time Status Last Admin Dose Admin Acetaminophen/ Hydrocodone Bitart (Lortab 5/325) 2 tab 1X ONCE 07/30/18 18:00 07/30/18 18:02 DC 07/30/18 18:00 2 TAB Ibuprofen (Motrin) 800 mg 1X ONCE 07/30/18 18:00 07/30/18 18:02 DC 07/30/18 18:00 800 MG Lidocaine/Sodium Bicarbonate (Buffered Lidocaine 1%) 3 ml 1X ONCE 07/30/18 17:30 07/30/18 17:31 DC 07/30/18 17:26 3 ML (JIMMY WILEY DO) Allergies Allergies Allergies Coded Allergies Type Severity Reaction Last Updated Verified No Known Drug Allergies 03/24/16 No (JIMMY WILEY DO) Physical Exam Physical Exam Constitutional: Well developed, well nourished, no acute distress, non-toxic appearance. [] Skin: Warm, dry, left inner thigh with an indurated area approximately 3 x 3 cm with mild erythema, warmth, very tender to touch and fluctuant. Back: No tenderness, no CVA tenderness. [] Extremities: No tenderness, no cyanosis, no clubbing, ROM intact, no edema. [] Neurologic: Alert and oriented X 3, normal motor function, normal sensory function, no focal deficits noted. [] Psychologic: Affect normal, judgement normal, mood normal. [] (MARTHA GONZALES APRN) Current Patient Data Vital Signs Vital Signs Date Time Temp Pulse Resp B/P (MAP) Pulse Ox O2 Delivery O2 Flow Rate FiO2 07/30/18 18:00 18 99 Room Air 07/30/18 16:59 98.2 106 157/86 (109) 98.2 (JIMMY WILEY DO) EKG EKG [] (MARTHA GONZALES APRN) Radiology/Procedures Radiology/Procedures Indication: abscess left inner thigh Procedure: The patient was positioned appropriately. Local anesthesia was 1% buffered lidocaine. An incision was then made over the apex of the lesion and moderate amount of bloody yellow purulent material was expressed. The drainage cavity was irrigated and packed with sterile gauze. The patients tetanus status updated as needed. The patient tolerated the procedure well. Complications: none.[] (MARTHA GONZALES APRN) Course & Med Decision Making Course & Med Decision Making Pertinent Labs and Imaging studies reviewed. (See chart for details) This is a 47-year-old female patient presenting to the ED today with an abscess of the left inner thigh that was drained by me as noted in procedures. Tetanus up-to-date. Wound care instructions and return precautions provided. Patient instructed to the ED 2 days for wound check and packing removal. (MARTHA GONZALES APRN) Dragon Disclaimer Dragon Disclaimer This electronic medical record was generated, in whole or in part, using a voice recognition dictation system. (MARTHA GONZALES APRN) Departure Departure Impression: Primary Impression: Abscess of left thigh Additional Impression: Cellulitis of left thigh Disposition: 01 HOME, SELF-CARE Condition: STABLE Referrals: NO PCP (PCP) follow up with the Ed in 2 days for wound check and packing removal Patient Instructions: Abscess, Care After, Cellulitis, [id number] Additional Instructions: You were evaluated in the emergency room for an abscess in her left inner thigh that was drained and packed in the emergency room. Keep the area clean and dry. Come back in the ED in 2 days for wound check and packing removal Scripts Sulfamethoxazole/Trimethoprim (BACTRIM DS TABLET) 1 Each Tablet 1 TAB PO BID, #20 TAB Prov: MARTHA GONZALES APRN 07/30/18 Hydrocodone/Apap 5-325 (NORCO 5-325 TABLET) 1 Each Tablet 1 TAB PO Q6HRS PRN for PAIN, #20 TAB Prov: MARTHA GONZALES ETCHER HAND 07/30/18 Attending Signature Attending Signature I have reviewed the PA/FUEL PILOT ENGINEER's note and plan of care. I was available for consultation as needed during the patient's visit in the emergency department. I agree with the clinical impression, plan, and disposition. (JIMMY WILEY DO) Problem Qualifiers MARTHA GONZALES APRN July 30, 2018 17:56 JIMMY WILEY DO July 31, 2018 04:36
[2018-07-30] MEDS ORDERED: IBUPROFEN 400 MG TABLET. PO ONE (18:00)
[2018-07-30] MEDS ORDERED: HYDROcodone/APAP 5/325MG 1 TAB TABLET PO ONE (18:00)
[2018-07-30] MEDS ORDERED: SULF1TAB24 PO (18:06)
[2018-07-30] MEDS ORDERED: HYDR-3164 PO (18:06)
== END 2018-07-30 18:34 | disposition home or self-care (01) ==
LOC: ER 16:33
DX: L02.416 Cutaneous abscess of left lower limb (principal); L03.116 Cellulitis of left lower limb; E11.9 Type 2 diabetes mellitus without complications; I10 Essential (primary) hypertension; Z98.890 Other specified postprocedural states
CPT/HCPCS: 10060; 99283

== ENCOUNTER 2018-08-02 17:53 | Emergency (ER) | payer SELFPAY ==
[~2018-08-02] VITALS: Ht 162.6 cm; Wt 77.1 kg
[~2018-08-02 17:53] MED LIST changes: +HYDR-3164 PO; +SULF1TAB24 PO
[2018-08-02 18:04] VITALS: BP 172/94
--- NOTE | 2018-08-02 18:24 | PHYS DOC ---
Past Medical History Past Medical History: Diabetes-Type II, Hypertension Past Surgical History: Alcohol Use: Occasionally Drug Use: None Adult General Chief Complaint Chief Complaint: WOUND CHECK HPI HPI Patient is a 47 year old female who presents for wound check for an abscess that was drained 2 days ago by me. Patient denies any fever. States the drainage has stopped. Review of Systems Review of Systems Constitutional: Denies fever or chills [] Musculoskeletal: Denies back pain or joint pain [] Integument: Visit for wound check Neurologic: Denies headache, focal weakness or sensory changes [] All other systems were reviewed and found to be within normal limits, except as documented in this note. Allergies Allergies Allergies Coded Allergies Type Severity Reaction Last Updated Verified No Known Drug Allergies 03/24/16 No Physical Exam Physical Exam Constitutional: Well developed, well nourished, no acute distress, non-toxic appearance. [] Skin: Left inner thigh with an open wound from an abscess was drained 2 days ago. There is no drainage from this area. Redness has reduced tremendously. The wound is none indurated. Back: No tenderness, no CVA tenderness. [] Extremities: No tenderness, no cyanosis, no clubbing, ROM intact, no edema. [] Neurologic: Alert and oriented X 3, normal motor function, normal sensory function, no focal deficits noted. [] Psychologic: Affect normal, judgement normal, mood normal. [] Current Patient Data Vital Signs Vital Signs Date Time Temp Pulse Resp B/P (MAP) Pulse Ox O2 Delivery O2 Flow Rate FiO2 08/02/18 18:04 98.1 110 18 172/94 (120) 98 Room Air 98.1 EKG EKG [] Radiology/Procedures Radiology/Procedures [] Course & Med Decision Making Course & Med Decision Making Pertinent Labs and Imaging studies reviewed. (See chart for details) This is a 47-year-old male patient presented to the ED today for wound check for an abscess that was drained 2 days ago. Wound has reduced in size tremendously. Redness has gone down. Patient was encouraged to continue using antibiotics. Tetanus up-to-date. Dragon Disclaimer Dragon Disclaimer This electronic medical record was generated, in whole or in part, using a voice recognition dictation system. Departure Departure Impression: Primary Impression: Wound check, abscess Disposition: 01 HOME, SELF-CARE Condition: STABLE Referrals: NO PCP (PCP) follow up in 1-2 weeks with your doctor. Patient Instructions: Wound Check Additional Instructions: You were seen for abscess please keep the area clean and dry. Continue to apply warm compresses to the are twice a day. Complete your antibiotics. Follow up with your doctor in 2 weeks. MARTHA GONZALES APRN August 02, 2018 18:24
== END 2018-08-02 18:34 | disposition home or self-care (01) ==
LOC: ER 17:53
DX: Z48.01 Encounter for change or removal of surgical wound dressing (principal); T81.41XD Infection following a procedure, superficial incisional surgical site, subsequent encounter; L02.416 Cutaneous abscess of left lower limb; E11.9 Type 2 diabetes mellitus without complications; I10 Essential (primary) hypertension; Z98.890 Other specified postprocedural states
CPT/HCPCS: 99281